=== PATIENT | male | born 1950 | race Caucasian/White ===

== ENCOUNTER → 2018-05-05 09:00 | Outpatient (CLI) | payer MEDICARE, OTHER, SELFPAY ==
[2018-05-05 11:38] LABS: AST(SGOT) 71 U/L (15-37); Alanine Aminotransfer ALT/SGPT 90 U/L (16-61); Albumin, Serum 3.8 g/dL (3.2-5.0); Alkaline Phosphatase 43 U/L (45-117); Anion Gap 11 (5-15); BUN 25 mg/dL (7-18); BUN/Creat Ratio 24.3 RATIO (10-20); Calcium,Total 8.8 mg/dL (8.5-10.1); Chloride 106 mmol/L (98-107); Creatinine, Serum 1.03 mg/dL (0.70-1.30); EST Glomerular Filtration Rate 77 mL/min (>60); Est Glom Filt Rate - Afr Amer 93 mL/min (>60); Globulin 3.7 g/dL (2.2-4.2); Glucose 98 mg/dL (74-106); Potassium 3.7 mmol/L (3.5-5.1); Protein, Total 7.5 g/dL (6.4-8.2); Sodium Level 141 mmol/L (136-145); Thyroid Stim Hormone (TSH) 5.32 uIU/mL (0.358-3.74)
== END ==
PROVIDERS: Family Provider Family Medicine; PCP Family Medicine; Visit Provider Family Medicine
DX: E03.9 Hypothyroidism, unspecified (principal); E78.6 Lipoprotein deficiency
CPT/HCPCS: 36415; 80053; 84439; 84443

== ENCOUNTER → 2018-05-11 08:35 | Outpatient (CLI) | payer MEDICARE, OTHER, SELFPAY ==
--- NOTE | 2018-05-11 08:37 | US_ITS ---
STUDY: ABDOMINAL ULTRASOUND - RIGHT UPPER QUADRANT REASON FOR VISIT: Male, 68 years old. Elevated liver function tests. TECHNIQUE: Ultrasound evaluation of the right upper quadrant was performed with real-time and static mejia-scale imaging. TECHNICAL QUALITY: Adequate. COMPARISON: Comparison is made with prior study dated November 13, 2017. FINDINGS: Liver: The liver measures 16.5 cm. There is increased echogenicity consistent with fatty infiltration. The bile ducts are within normal limits. There is hepatic color flow. The direction of portal flow is hepatopetal. There is no demonstrated mass lesion. Gallbladder: Normal distended gallbladder. The gallbladder wall measures 2.1 mm. There is a negative sonographic Zhou's sign. There is no pericholecystic fluid. There are no gallstones. Common Bile Duct (C.B.D.): The common bile duct measures 2.0 mm. Pancreas: There is nonvisualization of the pancreas due to overlying bowel gas. Right Kidney: Normal size of the right kidney. The right kidney measures 13.3 cm x 4.8 cm x 6.9 cm. Normal renal cortex. The right cortex measures 1.8 cm. There is a 1.7 cm x 1.5 cm x 1.6 cm cyst. There is no right hydronephrosis. US/Abdomen Limited IMPRESSION: Fatty infiltration of the liver. Electronically Signed: Blaine Huertas MD at 15:52 EDT Tel [phone], Service support ,
== END ==
PROVIDERS: Family Provider Family Medicine; PCP Family Medicine; Visit Provider Family Medicine
DX: R74.8 Abnormal levels of other serum enzymes (principal)
CPT/HCPCS: 76705

== ENCOUNTER → 2018-09-08 09:21 | Outpatient (CLI) | payer MEDICARE, OTHER, SELFPAY ==
[2018-09-08 12:06] LABS: Absolute Lymphocyte Count 2.65 X10^3/ul (0.83-4.51); Absolute Neutrophil Count 3.7 X10^3/uL (2.0-7.7); Basophil# 0.04 X10^3/uL; Basophil% 0.6 % (0-1); Eosinophil# 0.16 X10^3/uL; Eosinophils% 2.3 % (0-5); Lymphocyte # 2.65 X10^3/ul (4.0); Lymphocyte % 37.6 % (19-41); Mean Corp Hgb Conc 33.3 g/gl (32-36); Mean Corpuscular Hgb 32.1 pg (27.0-32.0); Mean Corpuscular Volume 96.2 fL (80-94); Mean Platelet Vol. 10.8 fl (6.2-12.0); Monocyte# 0.46 X10^3/uL; Monocyte% 6.5 % (0-10); Neutrophil # 3.73 X10^3/uL (2.7-7.7); Neutrophil % 52.9 % (47-70); POSITIVE COUNT NO; POSITIVE DIFFERENTIAL NO; POSITIVE MORPHOLOGY NO; Platelet Count 193 K/mm3 (150-450); RBC Distribution Width CV 12.9 % (11.6-14.6); RBC Distribution Width SD 45.3 fl (35.1-43.9); White Blood Count 7.1 K/mm3 (4.4-11.0)
[2018-09-08 12:24] LABS: AST(SGOT) 65 U/L (15-37); Alanine Aminotransfer ALT/SGPT 81 U/L (16-61); Albumin, Serum 3.5 g/dL (3.2-5.0); Alkaline Phosphatase 41 U/L (45-117); Anion Gap 9 (5-15); BUN 17 mg/dL (7-18); BUN/Creat Ratio 18.1 RATIO (10-20); Calcium,Total 8.4 mg/dL (8.5-10.1); Chloride 106 mmol/L (98-107); Cholesterol 145 mg/dL (200); Creatinine, Serum 0.94 mg/dL (0.70-1.30); EST Glomerular Filtration Rate 86 mL/min (>60); Est Glom Filt Rate - Afr Amer 104 mL/min (>60); Globulin 3.4 g/dL (2.2-4.2); Glucose 97 mg/dL (74-106); High Density Lipoprotein 26 mg/dL; Protein, Total 6.9 g/dL (6.4-8.2); Sodium Level 139 mmol/L (136-145); Triglycerides 250 mg/dL; Very Low Density Lipoprotein 50 mg/dL (5-40)
[2018-09-08 12:32] LABS: Microalbumin,Random Urine 7.1 mg/L (NO RANGE EST.); Microalbumin:Creatinine Ratio 5.4 mg/g CRE (<30 mg/g CRE)
== END ==
PROVIDERS: Family Provider Family Medicine; PCP Family Medicine; Visit Provider Family Medicine
DX: E88.81 Metabolic syndrome and other insulin resistance (principal)
CPT/HCPCS: 36415; 80053; 80061; 82043; 82570; 84443; 85025

== ENCOUNTER → 2018-09-10 10:54 | Outpatient (CLI) | payer MEDICARE, OTHER, SELFPAY ==
[2018-09-12 13:20] LABS: HEPATITIS B SURFACE AG Negative (Negative); Hep B Surface Antibodies Non Reactive (.); Hep C Antibodies <0.1 s/co ratio (0.0-0.9)
== END ==
PROVIDERS: Family Provider Family Medicine; PCP Family Medicine; Visit Provider Family Medicine
DX: R74.0 Nonspecific elevation of levels of transaminase and lactic acid dehydrogenase [LDH] (principal); K76.0 Fatty (change of) liver, not elsewhere classified
CPT/HCPCS: 36415; 83036; 86706; 86803; 87340

== ENCOUNTER → 2019-09-09 | Outpatient (CLI) | payer MEDICARE, OTHER, SELFPAY ==
[2019-09-09 13:10] LABS: Microalbumin,Random Urine 5.5 mg/L (NO RANGE EST.); Microalbumin:Creatinine Ratio 5.7 mg/g CRE (<30 mg/g CRE)
[2019-09-09 13:19] LABS: ALB/GLOB Ratio 1.1 RATIO (0.9-2.4); AST(SGOT) 66 U/L (15-37); Alanine Aminotransfer ALT/SGPT 74 U/L (16-61); Albumin, Serum 3.9 g/dL (3.2-5.0); Alkaline Phosphatase 46 U/L (45-117); Anion Gap 7 (5-15); BUN 15 mg/dL (7-18); BUN/Creat Ratio 15.1 RATIO (10-20); Calcium,Total 9.1 mg/dL (8.5-10.1); Chloride 105 mmol/L (98-107); Cholesterol 152 mg/dL (200); EST Glomerular Filtration Rate 80 mL/min (>60); Est Glom Filt Rate - Afr Amer 96 mL/min (>60); GGTP 196 U/L (15-85); Globulin 3.6 g/dL (2.2-4.2); Glucose 105 mg/dL (74-106); High Density Lipoprotein 30 mg/dL; Potassium 3.9 mmol/L (3.5-5.1); Protein, Total 7.5 g/dL (6.4-8.2); Sodium Level 138 mmol/L (136-145); Triglycerides 209 mg/dL; Very Low Density Lipoprotein 42 mg/dL (5-40)
[2019-09-09 13:29] LABS: Hemoglobin A1c 6.5 % (4.2-6.3)
== END | disposition home or self-care (01) ==
LOC: MFPLAB 09:56
PROVIDERS: Family Provider Family Medicine; PCP Family Medicine; Referring Provider Family Medicine; Visit Provider Family Medicine
DX: I10 Essential (primary) hypertension (principal)
CPT/HCPCS: 36415; 80053; 80061; 82043; 82570; 82977; 83036

== ENCOUNTER → 2019-09-09 | Outpatient (CLI) | payer MEDICARE, OTHER, SELFPAY ==
--- NOTE | 2019-09-09 16:40 | VDLE_ITS ---
Reason For Study: Right leg pain RIGHT GSV is normal. CFV is compressible, spontaneous, phasic, competent and demonstrates normal augmentation. FV is compressible, spontaneous, phasic, competent and demonstrates normal augmentation. POP V is compressible, spontaneous, phasic, competent and demonstrates normal augmentation. T/P Trunk is compressible. PTV is compressible. RT PerV is compressible. Procedure Exam performed in department. A preliminary report was called and/or faxed to Jaz[facility]. Interpretation Summary Deep veins of the right lower extremity are patent and compressible segmentally. There is no evidence of right lower extremity deep vein thrombosis. Valvular competence appears intact within the proximal deep venous system on the right . The right great saphenous vein appears patent and compressible segmentally. Ordering Physician: Jalen Hobson Referring Physician: James Munoz MD Performed By: Genia Wasserman RVT
== END | disposition home or self-care (01) ==
LOC: CVS 16:38
PROVIDERS: Family Provider Family Medicine; PCP Family Medicine; Referring Provider Family Medicine; Visit Provider Family Medicine
DX: M79.604 Pain in right leg (principal); I10 Essential (primary) hypertension; E78.5 Hyperlipidemia, unspecified; K76.0 Fatty (change of) liver, not elsewhere classified
CPT/HCPCS: 36415; 80053; 80061; 82043; 82570; 82977; 83036; 93971

== ENCOUNTER 2019-10-01 05:29 | Day surgery (SDC) | payer MEDICARE, OTHER, SELFPAY ==
[2019-10-01] VITALS (8 sets, daily range): BP systolic 111–156; BP diastolic 71–95; PULSE 44–53; RESP 16; TEMP 36.3–36.6; O2SAT 92–100; BMI 33.3
[2019-10-01] MEDS: Lactated Ringers 1,000 ML 100 ML IV ×2 (06:10→06:20)
--- NOTE | 2019-10-01 06:13 | PCM.HP.STD ---
Problem List (1) Personal history of colonic polyps Status: Acute History of Present Illness Date of Admission: 10/01/19 The patient is a 69 year old M who presents for surveillance colonoscopy. He has a personal history of colon polyps. I assisted him with a colonoscopy most frequently 5 years ago. He does not believe there was a polyp at that time but there was at the 10-year hetal. Currently he notes some looser stools frequent bowel movements. He denies bright red blood per rectum or melena. He has not had any weight loss. He otherwise enjoys good health. Past Medical History Past Medical History (Chronic Problems): Chronic Problems Hypertriglyceridemia (Chronic) History of abdominal pain (Chronic) Allergies aspirin Allergy (Verified 09/30/19 08:24) Anaphylaxis codeine Allergy (Verified 09/30/19 08:52) Nausea/Vom/Diarrhea morphine Allergy (Verified 09/30/19 08:24) Other NSAIDS (Non-Steroidal Anti-Inflamma Allergy (Verified 09/30/19 08:24) Anaphylaxis Home Medications: Ambulatory Orders Medication Instructions Recorded Bisoprolol Fumarate 10 mg PO QHS 10/18/16 Levothyroxine [Synthroid] 100 mcg PO DAILY 10/18/16 Multivitamin [Daily Multiple 1 each PO DAILY 10/18/16 Vitamin] Omega3/Dha/Epa/Fish Oil/Vit D3 1 each PO DAILY 10/18/16 [Fish Oil + Vitamin D-3 Softgel] Triamterene/Hydrochlorothiazid 1 tab PO DAILY 10/18/16 [Triamterene-Hctz 37.5-25 mg Tb] Losartan Potassium [Cozaar] 50 mg PO QHS 10/19/16 Ascorbic Acid [Vitamin C] 1,000 mg PO DAILY 09/30/19 Clopidogrel Bisulfate [Clopidogrel] 37.5 mg PO DAILY 09/30/19 Glucos Sul 2Kcl/MSM/Chond/C/Mn 1 ea PO DAILY 09/30/19 [Glucosamine Chondroitin Cap] Pioglitazone HCl 30 mg PO DAILY 09/30/19 Pravastatin [Pravachol] 40 mg PO QHS 09/30/19 Vitamin E 1,000 unit PO DAILY 09/30/19 metFORMIN HCl [Glucophage] 500 mg PO BIDCM 09/30/19 Surgical History: - - tonsils, hemorrhoids, biceps tears in both arms, broken wrist in high,prior compression fractures in upper spine. Smoking Status: Never smoker Tobacco Use: Non-smoker - *Family History Maternal History Items: - Paternal History Items: - Review of Systems Constitutional: Denies: Anorexia HEENT: Denies: Difficulty Swallowing Cardiovascular: Denies: Chest Pain Respiratory: Denies: Cough Gastrointestinal: Reports: - - Multiple daily stools. Denies: Abdominal Pain Psychiatric: Denies: Anxiety VTE Information - Inpt Only VTE Present on Admission: No Patient Problems: Active and Suspected Problems Personal history of colonic polyps (Acute) - Physical Exam Vitals/I&O's: Vital Signs Temp Pulse Resp BP Pulse Ox 97.3 F L 53 L 16 134/79 H 100 10/01/19 05:52 10/01/19 05:52 10/01/19 05:52 10/01/19 05:52 10/01/19 05:52 Oxygen Delivery Method Room Air Weight: 225 lb 12.054 oz Body Mass Index (BMI) 33.3 General: Alert, Oriented x3, Cooperative, No apparent distress HEENT: Atraumatic Oral: Moist Mucosa Neck: Supple Lungs: Clear to auscultation, Normal air movement Cardiovascular: Regular rate, Regular Rhythm Abdomen: Bowel Sounds Present, Soft, Non Tender Extremities: No Calf Tenderness Psych/Mental Status: Normal Affect Current Medications Lactated Ringer's () 1,000 mls @ 100 mls/hr IV .Q10H [facility] Last Admin: 10/01/19 06:10 Dose: 100 mls/hr Documented by: Assessment/Plan All Active Problems Personal history of colonic polyps (Acute) Lumbar compression fracture (Acute) I recommended the patient a colonoscopy with possible biopsy or polypectomy is indicated. He is aware of the technique, benefits, risks, alternatives. Because of the more frequent bowel habits we may consider random colonic biopsies. He presents via our open access program today. Gary Pryor M.D., F.A.C.S.
--- NOTE | 2019-10-01 06:30 | COLBX_PTH ---
PATIENT: ANGELIC ROUSE LOC: EN U#:[id number] AGE/SX: 69/M ROOM: RE10/01/[address]: Dr. Gary Pryor MD : 1950 BED: DIS: 10/01/2019 SPEC #: [id number] RECD: 10/01/19 10:47 STATUS: SCAR REKenan #: [id number] KRISTEN: 10/01/19 06:[address]: Gary Pryor DEPT: SURGICAL PATHOLOGY RECD BY: Michael Simon ENTERED: 10/01/19 11:33 SP TYPE: COLON BX OT DR: Dr. James Munoz MD Tissues: A - COLON BIOPSY B - Ascending colon C - Descending colon D - Sigmoid colon biopsy Procedures: Surgery Specimen Level IV HEADER OPERATION: Colonoscopy, open access (MOD) PRE-OP DIAGNOSIS: History colon polyps TISSUE SUBMITTED: A - Random colonic biopsy, B - Ascending polyp biopsy, C - Descending polyp biopsy, D - Proximal sigmoid polyp biopsy MICROSCOPIC DIAGNOSIS A. Colon, random biopsy: Fragments of colonic mucosa, no pathologic diagnosis. B. Ascending colon polyp, biopsy: Fragments of tubular adenoma. C. Descending colon polyp, biopsy: Fragments of tubular adenoma. D. Proximal sigmoid colon polyp, biopsy: Fragments of colonic mucosa, no pathologic diagnosis. SJ:mary lou 10/04/19 COMMENT Case has been reviewed in consultation with Dr. Womack who concurs with the above diagnosis. IDC:AM MICROSCOPIC DESCRIPTION Slides are reviewed. GROSS DESCRIPTION A - Received in fixative is one container labeled with the patient's name and designated random colon biopsy. The specimen consists of multiple irregular fragments of light landrum soft tissue that in aggregate measure 1.5 x 0.4 x 0.1 cm. The specimen is totally submitted in one cassette. B - Received in fixative is one container labeled with the patient's name and designated ascending polyp. The specimen consists of two irregular fragments of light landrum soft tissue that in aggregate measure 0.8 x 0.3 x 0.1 cm. The specimen is totally submitted in one cassette. C - Received in fixative is one container labeled with the patient's name and designated descending polyp biopsy. The specimen consists of two irregular fragments of light landrum soft tissue that in aggregate measure 0.8 x 0.4 x 0.1 cm. The specimen is totally submitted in one cassette. D - Received in fixative is one container labeled with the patient's name and designated proximal sigmoid polyp biopsy. The specimen consists of two irregular fragments of light landrum soft tissue that in aggregate measure 0.5 x 0.3 x 0.1 cm. The specimen is totally submitted in one cassette. / SJ:rg 10/01/19 TC:5 CPT: 39658 x4
--- NOTE | 2019-10-01 06:52 | OP.COLON_ITS ---
Patient Name: Virgen Julien Procedure Date: 10/01/2019 6:07 AM Date of : 1950 Age: 69 Procedure: Colonoscopy Indications: High risk colon cancer surveillance: Personal history of colonic polyps Providers: Gary Pryor MD Referring MD: James Munoz Medicines: Midazolam 3.5 mg IV, Meperidine 100 mg IV Patient Profile: Last Colonoscopy: 5 years ago. Complications: No immediate complications. Procedure: Pre-Anesthesia Assessment: - Prior to the procedure, a History and Physical was performed, and patient medications and allergies were reviewed. The patient's tolerance of previous anesthesia was also reviewed. The risks and benefits of the procedure and the sedation options and risks were discussed with the patient. All questions were answered, and informed consent was obtained. Prior Anticoagulants: The patient has taken no previous anticoagulant or antiplatelet agents. ASA Grade Assessment: II - A patient with mild systemic disease. After reviewing the risks and benefits, the patient was deemed in satisfactory condition to undergo the procedure. After I obtained informed consent, the scope was passed under direct vision. Throughout the procedure, the patient's blood pressure, pulse, and oxygen saturations were monitored continuously. The colonoscope was introduced through the anus and advanced to the cecum, identified by appendiceal orifice and ileocecal valve. The colonoscopy was performed without difficulty. The patient tolerated the procedure well. The quality of the bowel preparation was good. The ileocecal valve was photographed. Moderate Sedation: Moderate (conscious) sedation was personally administered by the endoscopist. The following parameters were monitored: oxygen saturation, heart rate, blood pressure, and response to care. Total physician intraservice time was 17 minutes. Scope In: 6:30:23 AM Scope Withdrawal Time 0 hours 13 minutes 5 seconds Scope Out: 6:46:30 AM Total Procedure Duration Time 0 hours 16 minutes 7 seconds Findings: The perianal and digital rectal examinations were normal. Multiple diverticula were found in the sigmoid colon and descending colon. Three sessile polyps were found in the proximal sigmoid colon, descending colon and distal ascending colon. The polyps were 5 to 6 mm in size. These polyps were removed with a cold biopsy forceps. Resection and retrieval were complete. Biopsies for histology were taken with a cold forceps from the entire colon for evaluation of microscopic colitis. Impression: - Diverticulosis in the sigmoid colon and in the descending colon. - Three 4-5 mm polyps in the proximal sigmoid colon, in the descending colon and in the distal ascending colon, removed with a cold biopsy forceps. Resected and retrieved. - Biopsies were taken with a cold forceps from the entire colon for evaluation of microscopic colitis. Recommendation: - Discharge patient to home. - Resume previous diet. - Continue present medications. - Repeat colonoscopy in 5 years for surveillance based on pathology results. - Telephone my office for pathology results in 1 week. Procedure Code(s): --- Professional --- 44819, Colonoscopy, flexible; with biopsy, single or multiple 14907, 59, Moderate sedation services provided by the same physician or other qualified health patient care provider performing the diagnostic or therapeutic service that the sedation supports, requiring the presence of an independent trained observer to assist in the monitoring of the patient's level of consciousness and physiological status; initial 15 minutes of intraservice time, patient age 5 years or older Diagnosis Code(s): --- Professional --- Z86.010, Personal history of colonic polyps D12.5, Benign neoplasm of sigmoid colon D12.4, Benign neoplasm of descending colon D12.2, Benign neoplasm of ascending colon K57.30, Diverticulosis of large intestine without perforation or abscess without bleeding CPT copyright 2017 [employer]. All rights reserved. The codes documented in this report are preliminary and upon dog daycare provider review may be revised to meet current compliance requirements. Gary Pryor MD 10/01/2019 6:52:06 AM This report has been signed electronically. Number of Addenda: 0 Note Initiated On: 10/01/2019 6:07 AM
== END 2019-10-01 08:01 | disposition home or self-care (01) ==
LOC: EN 05:30 → AC 05:32
PROVIDERS: Family Provider Family Medicine; PCP Family Medicine; Referring Provider Family Medicine; Visit Provider Surgery
PROC: 0DJD8ZZ Inspection of Lower Intestinal Tract, Via Natural or Artificial Opening Endoscopic (ICD-10-PCS; CPT 45378; principal; 2019-10-01 06:25)
DX: Z12.11 Encounter for screening for malignant neoplasm of colon (principal); D12.2 Benign neoplasm of ascending colon; D12.4 Benign neoplasm of descending colon; K57.30 Diverticulosis of large intestine without perforation or abscess without bleeding; Z86.010 Personal history of colon polyps; E78.1 Pure hyperglyceridemia; Z79.899 Other long term (current) drug therapy
CPT/HCPCS: 45380; 88305; 99152; 99153; J7120

== ENCOUNTER → 2019-12-14 | Outpatient (CLI) | payer MEDICARE, OTHER, SELFPAY ==
[2019-10-01 05:52] VITALS: BMI 33.3
[2019-12-14 12:28] LABS: International Normalized Ratio 1.1; Prothrombin Time (Protime)PT. 13.7 SECONDS (11.7-14.9)
[2019-12-14 12:37] LABS: Hemoglobin A1c 6.4 % (4.2-6.3)
[2019-12-14 12:53] LABS: AST(SGOT) 43 U/L (15-37); Alanine Aminotransfer ALT/SGPT 53 U/L (16-61); Albumin, Serum 3.7 g/dL (3.2-5.0); Alkaline Phosphatase 43 U/L (45-117); Anion Gap 7 (5-15); BUN 17 mg/dL (7-18); Calcium,Total 9.3 mg/dL (8.5-10.1); Chloride 106 mmol/L (98-107); Cholesterol 165 mg/dL (200); Creatinine, Serum 0.94 mg/dL (0.70-1.30); EST Glomerular Filtration Rate 85 mL/min (>60); Est Glom Filt Rate - Afr Amer 103 mL/min (>60); GGTP 163 U/L (15-85); Globulin 3.6 g/dL (2.2-4.2); Glucose 92 mg/dL (74-106); High Density Lipoprotein 31 mg/dL; Potassium 3.9 mmol/L (3.5-5.1); Protein, Total 7.3 g/dL (6.4-8.2); Sodium Level 139 mmol/L (136-145)
== END | disposition home or self-care (01) ==
LOC: MFPLAB 11:12
PROVIDERS: PCP Family Medicine; Referring Provider Family Medicine; Visit Provider Family Medicine
DX: K75.81 Nonalcoholic steatohepatitis (NASH) (principal); E11.9 Type 2 diabetes mellitus without complications
CPT/HCPCS: 36415; 80053; 82140; 82465; 82977; 83036; 83718; 85610

== ENCOUNTER → 2020-06-12 | Outpatient (CLI) | payer MEDICARE, OTHER, SELFPAY ==
[2019-10-01 05:52] VITALS: BMI 33.3
[2020-06-12 12:38] LABS: Absolute Lymphocyte Count 3.07 X10^3/uL (0.83-4.51); Absolute Neutrophil Count 3.2 X10^3/uL (2.0-7.7); Basophil% 1.2 % (0-1); Eosinophil# 1.08 X10^3/uL; Eosinophils% 13.3 % (0-5); Hematocrit 51.8 % (40-54); Hemoglobin 16.9 g/dL (13.0-16.5); Lymphocyte # 3.07 X10^3/ul (4.0); Lymphocyte % 37.9 % (19-41); Mean Corp Hgb Conc 32.6 g/dL (32-36); Mean Corpuscular Hgb 32.1 pg (27.0-32.0); Mean Corpuscular Volume 98.5 fL (80-94); Mean Platelet Vol. 10.5 fl (6.2-12.0); Monocyte# 0.69 X10^3/uL; Monocyte% 8.5 % (0-10); NRBC Flagged by Analyzer 0 % (0-5); Neutrophil # 3.15 X10^3/uL (2.7-7.7); Neutrophil % 38.9 % (47-70); Platelet Count 212 K/mm3 (150-450); RBC Distribution Width CV 13.1 % (11.6-14.6); RBC Distribution Width SD 46.6 fl (35.1-43.9); Red Blood Count 5.26 M/mm3 (4.6-6.2); White Blood Count 8.1 K/mm3 (4.4-11.0)
[2020-06-12 12:55] LABS: Microalbumin,Random Urine 10.6 mg/L (NO RANGE EST.); Microalbumin:Creatinine Ratio 5.5 mg/g CRE (<30 mg/g CRE)
[2020-06-12 12:57] LABS: BUN 21 mg/dL (7-18); Creatinine, Serum 1.05 mg/dL (0.70-1.30); Glucose 106 mg/dL (74-106)
[2020-06-12 12:58] LABS: AST(SGOT) 37 U/L (15-37); Alanine Aminotransfer ALT/SGPT 43 U/L (16-61); Albumin, Serum 3.8 g/dL (3.2-5.0); Alkaline Phosphatase 43 U/L (45-117); Anion Gap 6 (5-15); Calcium,Total 8.9 mg/dL (8.5-10.1); Chloride 105 mmol/L (98-107); Cholesterol 157 mg/dL (200); EST Glomerular Filtration Rate 75 mL/min (>60); Est Glom Filt Rate - Afr Amer 90 mL/min (>60); Ferritin 379 ng/mL (26-388); GGTP 126 U/L (15-85); Globulin 3.7 g/dL (2.2-4.2); High Density Lipoprotein 29 mg/dL; Potassium 4.1 mmol/L (3.5-5.1); Protein, Total 7.5 g/dL (6.4-8.2); Sodium Level 137 mmol/L (136-145); Thyroid Stim Hormone (TSH) 5.53 uIU/mL (0.358-3.74); Triglycerides 229 mg/dL; Very Low Density Lipoprotein 46 mg/dL (5-40)
== END | disposition home or self-care (01) ==
LOC: MFPLAB 10:18
PROVIDERS: PCP Family Medicine; Referring Provider Family Medicine; Visit Provider Family Medicine
DX: K76.0 Fatty (change of) liver, not elsewhere classified (principal); E11.9 Type 2 diabetes mellitus without complications; K75.81 Nonalcoholic steatohepatitis (NASH)
CPT/HCPCS: 36415; 80053; 80061; 82043; 82140; 82570; 82728; 82977; 83036; 84443; 85025

== ENCOUNTER → 2020-09-11 | Outpatient (CLI) | payer MEDICARE, OTHER, SELFPAY ==
[2019-10-01 05:52] VITALS: BMI 33.3
[2020-09-11 10:33] LABS: Hematocrit 50.9 % (40-54); Hemoglobin 16.3 g/dL (13.0-16.5); Mean Corpuscular Hgb 31.5 pg (27.0-32.0); Mean Corpuscular Volume 98.3 fL (80-94); Mean Platelet Vol. 10.5 fl (6.2-12.0); Platelet Count 199 K/mm3 (150-450); RBC Distribution Width CV 13.2 % (11.6-14.6); RBC Distribution Width SD 48.2 fl (35.1-43.9); Red Blood Count 5.18 M/mm3 (4.6-6.2); White Blood Count 6.6 K/mm3 (4.4-11.0)
[2020-09-11 11:10] LABS: Ferritin 341 ng/mL (26-388); GGTP 103 U/L (15-85); Iron 146 ug/dL (65-175); T4 Total, Thyroxin 10.8 ug/dL (4.5-12.1); Thyroid Stim Hormone (TSH) 4.08 uIU/mL (0.358-3.74)
[2020-09-12 11:08] LABS: ALB/GLOB Ratio 1.2 RATIO (0.9-2.4); AST(SGOT) 37 U/L (15-37); Alanine Aminotransfer ALT/SGPT 43 U/L (16-61); Albumin, Serum 3.7 g/dL (3.2-5.0); Alkaline Phosphatase 40 U/L (45-117); Anion Gap 7 (5-15); BUN 24 mg/dL (7-18); Calcium,Total 8.6 mg/dL (8.5-10.1); Chloride 108 mmol/L (98-107); Creatinine, Serum 0.98 mg/dL (0.70-1.30); Globulin 3.1 g/dL (2.2-4.2); Glucose 93 mg/dL (74-106); Potassium 4.1 mmol/L (3.5-5.1); Protein, Total 6.8 g/dL (6.4-8.2); Sodium Level 142 mmol/L (136-145)
[2020-09-12 11:20] LABS: BUN/Creat Ratio 24.6 RATIO (10-20); EST Glomerular Filtration Rate 81 mL/min (>60); Est Glom Filt Rate - Afr Amer 98 mL/min (>60)
== END | disposition home or self-care (01) ==
LOC: MFPLAB 08:32
PROVIDERS: PCP Family Medicine; Visit Provider Family Medicine
DX: K75.81 Nonalcoholic steatohepatitis (NASH) (principal); E03.9 Hypothyroidism, unspecified; I10 Essential (primary) hypertension
CPT/HCPCS: 36415; 80053; 82140; 82728; 82977; 83540; 84436; 84443; 85027

== ENCOUNTER → 2021-01-10 11:10 | Outpatient (CLI) | payer MEDICARE, OTHER, SELFPAY ==
[2019-10-01 05:52] VITALS: BMI 33.3
[2021-01-10 12:13] LABS: Absolute Lymphocyte Count 2.52 X10^3/uL (0.83-4.51); Absolute Neutrophil Count 3.2 X10^3/uL (2.0-7.7); Basophil# 0.05 X10^3/uL; Basophil% 0.8 % (0-1); Eosinophil# 0.18 X10^3/uL; Eosinophils% 2.8 % (0-5); Hematocrit 50.2 % (40-54); Hemoglobin 16.8 g/dL (13.0-16.5); Lymphocyte # 2.52 X10^3/ul (4.0); Lymphocyte % 38.7 % (19-41); Mean Corp Hgb Conc 33.5 g/dL (32-36); Mean Corpuscular Hgb 31.8 pg (27.0-32.0); Mean Corpuscular Volume 94.9 fL (80-94); Mean Platelet Vol. 10.2 fl (6.2-12.0); Monocyte# 0.55 X10^3/uL; Monocyte% 8.4 % (0-10); NRBC Flagged by Analyzer 0 % (0-5); Neutrophil # 3.19 X10^3/uL (2.7-7.7); Platelet Count 208 K/mm3 (150-450); RBC Distribution Width CV 12.6 % (11.6-14.6); RBC Distribution Width SD 44.5 fl (35.1-43.9); Red Blood Count 5.29 M/mm3 (4.6-6.2); White Blood Count 6.5 K/mm3 (4.4-11.0)
[2021-01-10 12:51] LABS: Hemoglobin A1c 5.8 % (3.8-5.6)
[2021-01-10 12:52] LABS: Microalbumin,Random Urine 5.8 mg/L (NO RANGE EST.); Microalbumin:Creatinine Ratio 9.6 mg/g CRE (<30 mg/g CRE)
[2021-01-10 13:21] LABS: ALB/GLOB Ratio 1.1 RATIO (0.9-2.4); AST(SGOT) 34 U/L (15-37); Alanine Aminotransfer ALT/SGPT 43 U/L (16-61); Albumin, Serum 3.7 g/dL (3.2-5.0); Alkaline Phosphatase 42 U/L (45-117); Anion Gap 8 (5-15); BUN 23 mg/dL (7-18); BUN/Creat Ratio 24.3 RATIO (10-20); Calcium,Total 8.8 mg/dL (8.5-10.1); Chloride 106 mmol/L (98-107); Creatinine, Serum 0.95 mg/dL (0.70-1.30); EST Glomerular Filtration Rate 84 mL/min (>60); Est Glom Filt Rate - Afr Amer 102 mL/min (>60); Globulin 3.5 g/dL (2.2-4.2); Glucose 89 mg/dL (74-106); Potassium 3.9 mmol/L (3.5-5.1); Protein, Total 7.2 g/dL (6.4-8.2); Sodium Level 138 mmol/L (136-145); Thyroid Stim Hormone (TSH) 3.45 uIU/mL (0.358-3.74)
== END ==
PROVIDERS: PCP Family Medicine; Referring Provider Family Medicine; Visit Provider Family Medicine
DX: K75.81 Nonalcoholic steatohepatitis (NASH) (principal); E03.9 Hypothyroidism, unspecified; E11.9 Type 2 diabetes mellitus without complications
CPT/HCPCS: 36415; 80053; 82043; 82570; 83036; 84443; 85025

== ENCOUNTER → 2021-07-11 10:34 | Outpatient (CLI) | payer MEDICARE, OTHER, SELFPAY ==
[2021-07-11 12:11] LABS: Absolute Lymphocyte Count 2.71 X10^3/uL (0.83-4.51); Absolute Neutrophil Count 5.3 X10^3/uL (2.0-7.7); Basophil# 0.05 X10^3/uL; Basophil% 0.6 % (0-1); Eosinophil# 0.17 X10^3/uL; Eosinophils% 1.9 % (0-5); Hematocrit 51.5 % (40-54); Hemoglobin 17.2 g/dL (13.0-16.5); Lymphocyte # 2.71 X10^3/ul (0.83-4.51); Lymphocyte % 30.3 % (19-41); Mean Corp Hgb Conc 33.4 g/dL (32-36); Mean Corpuscular Hgb 31.6 pg (27.0-32.0); Mean Corpuscular Volume 94.7 fL (80-94); Mean Platelet Vol. 9.8 fl (6.2-12.0); Monocyte# 0.72 X10^3/uL; Monocyte% 8.1 % (0-10); NRBC Flagged by Analyzer 0 % (0-5); Neutrophil # 5.25 X10^3/uL (2.7-7.7); Neutrophil % 58.8 % (47-70); Platelet Count 253 K/mm3 (150-450); RBC Distribution Width CV 12.5 % (11.6-14.6); RBC Distribution Width SD 43.4 fl (35.1-43.9); Red Blood Count 5.44 M/mm3 (4.6-6.2); White Blood Count 8.9 K/mm3 (4.4-11.0)
[2021-07-11 12:32] LABS: ALB/GLOB Ratio 0.9 RATIO (0.9-2.4); AST(SGOT) 55 U/L (15-37); Alanine Aminotransfer ALT/SGPT 62 U/L (16-61); Albumin, Serum 3.8 g/dL (3.2-5.0); Alkaline Phosphatase 53 U/L (45-117); Anion Gap 6 (5-15); BUN 16 mg/dL (7-18); BUN/Creat Ratio 16.8 RATIO (10-20); Calcium,Total 9.2 mg/dL (8.5-10.1); Chloride 105 mmol/L (98-107); Creatinine, Serum 0.95 mg/dL (0.70-1.30); EST Glomerular Filtration Rate 83 mL/min (>60); Est Glom Filt Rate - Afr Amer 101 mL/min (>60); Globulin 4.1 g/dL (2.2-4.2); Glucose 131 mg/dL (74-106); Protein, Total 7.9 g/dL (6.4-8.2); Sodium Level 137 mmol/L (136-145)
[2021-07-11 13:20] LABS: D-Dimer Quantitative (DVT/PE) 1.22 FEU/ug/m (0.27-0.49); International Normalized Ratio 1.1; Prothrombin Time (Protime)PT. 13.1 SECONDS (11.7-14.9)
== END ==
PROVIDERS: PCP Family Medicine; Referring Provider Family Medicine; Visit Provider Family Medicine
DX: K75.81 Nonalcoholic steatohepatitis (NASH) (principal); S80.11XA Contusion of right lower leg, initial encounter
CPT/HCPCS: 36415; 80053; 85025; 85379; 85610

== ENCOUNTER → 2021-07-11 14:58 | Outpatient (CLI) | payer MEDICARE, OTHER, SELFPAY ==
--- NOTE | 2021-07-11 15:04 | VDLE_ITS ---
Reason For Study: ELEVATED D DIMER RIGHT LEFT GSV is normal. CFV is compressible, spontaneous, phasic, CFV is compressible, spontaneous, phasic, competent, and demonstrates normal competent and demonstrates normal augmentation. augmentation. FV is compressible, spontaneous, phasic, competent and demonstrates normal augmentation. POP V is compressible, spontaneous, phasic, competent and demonstrates normal augmentation. T/P Trunk is compressible. PTV is compressible. RT PerV is compressible. Procedure Exam performed in department. A preliminary report was called and/or faxed to DR MUNOZ. VL/Venous Duplex US, Unilateral Interpretation Summary There is no evidence of right lower extremity deep vein thrombosis. Right great saphenous vein appears patent and compressible segmentally. Normal flow patterns left common f emoral vein Ordering Physician: James Munoz Referring Physician: James Munoz Performed By: Natalia Whalen, MARISOL, RVT
== END ==
PROVIDERS: PCP Family Medicine; Referring Provider Family Medicine; Visit Provider Family Medicine
DX: R60.0 Localized edema (principal); R79.89 Other specified abnormal findings of blood chemistry; K75.81 Nonalcoholic steatohepatitis (NASH); S80.11XA Contusion of right lower leg, initial encounter
CPT/HCPCS: 36415; 80053; 85025; 85379; 85610; 93971

== ENCOUNTER → 2022-04-12 | Outpatient (CLI) | payer MEDICARE, OTHER, SELFPAY ==
[2022-04-12 10:20] LABS: Absolute Lymphocyte Count 3.13 X10^3/uL (0.83-4.51); Absolute Neutrophil Count 3.1 X10^3/uL (2.0-7.7); Basophil# 0.05 X10^3/uL; Basophil% 0.7 % (0-1); Eosinophils% 2.8 % (0-5); Hematocrit 47.8 % (40-54); Hemoglobin 16.3 g/dL (13.0-16.5); Lymphocyte # 3.13 X10^3/ul (0.83-4.51); Lymphocyte % 43.7 % (19-41); Mean Corp Hgb Conc 34.1 g/dL (32-36); Mean Corpuscular Hgb 32.4 pg (27.0-32.0); Mean Platelet Vol. 10.2 fl (6.2-12.0); Monocyte# 0.63 X10^3/uL; Monocyte% 8.8 % (0-10); NRBC Flagged by Analyzer 0 % (0-5); Neutrophil # 3.13 X10^3/uL (2.7-7.7); Neutrophil % 43.6 % (47-70); Platelet Count 197 K/mm3 (150-450); RBC Distribution Width SD 45.7 fl (35.1-43.9); Red Blood Count 5.03 M/mm3 (4.6-6.2); White Blood Count 7.2 K/mm3 (4.4-11.0)
[2022-04-12 10:31] LABS: AST(SGOT) 57 U/L (15-37); Alanine Aminotransfer ALT/SGPT 54 U/L (16-61); Albumin, Serum 3.5 g/dL (3.2-5.0); Alkaline Phosphatase 42 U/L (45-117); Anion Gap 6 (5-15); BUN 21 mg/dL (7-18); BUN/Creat Ratio 19.8 RATIO (10-20); Calcium,Total 8.7 mg/dL (8.5-10.1); Chloride 106 mmol/L (98-107); Cholesterol 140 mg/dL (200); Creatinine, Serum 1.06 mg/dL (0.70-1.30); EST Glomerular Filtration Rate 73 mL/min (>60); Est Glom Filt Rate - Afr Amer 89 mL/min (>60); Globulin 3.4 g/dL (2.2-4.2); Glucose 117 mg/dL (74-106); High Density Lipoprotein 29 mg/dL; Protein, Total 6.9 g/dL (6.4-8.2); Sodium Level 137 mmol/L (136-145); Triglycerides 202 mg/dL; Very Low Density Lipoprotein 40 mg/dL (5-40)
[2022-04-12 10:35] LABS: Hemoglobin A1c 6.1 % (3.8-5.6)
[2022-04-12 10:46] LABS: Microalbumin,Random Urine 8.5 mg/L (NO RANGE EST.); Microalbumin:Creatinine Ratio 5.5 mg/g CRE (<30 mg/g CRE)
== END | disposition home or self-care (01) ==
LOC: MFPLAB 08:38
PROVIDERS: PCP Family Medicine; Referring Provider Family Medicine; Visit Provider Family Medicine
DX: K75.81 Nonalcoholic steatohepatitis (NASH) (principal); E11.8 Type 2 diabetes mellitus with unspecified complications
CPT/HCPCS: 36415; 80053; 80061; 82043; 82570; 83036; 85025

== ENCOUNTER → 2022-10-11 | Outpatient (CLI) | payer MEDICARE, OTHER, SELFPAY ==
[2022-10-11 11:42] LABS: Hematocrit 50.6 % (40-54); Mean Corp Hgb Conc 33.6 g/dL (32-36); Mean Corpuscular Hgb 32.4 pg (27.0-32.0); Mean Corpuscular Volume 96.6 fL (80-94); Mean Platelet Vol. 10.1 fl (6.2-12.0); Platelet Count 191 K/mm3 (150-450); RBC Distribution Width SD 46.5 fl (35.1-43.9); Red Blood Count 5.24 M/mm3 (4.6-6.2); White Blood Count 8.2 K/mm3 (4.4-11.0)
[2022-10-11 12:00] LABS: ALB/GLOB Ratio 1.2 RATIO (0.9-2.4); AST(SGOT) 63 U/L (15-37); Alanine Aminotransfer ALT/SGPT 68 U/L (16-61); Albumin, Serum 3.8 g/dL (3.2-5.0); Alkaline Phosphatase 53 U/L (45-117); Anion Gap 7 (5-15); BUN 21 mg/dL (7-18); Calcium,Total 9.3 mg/dL (8.5-10.1); Chloride 104 mmol/L (98-107); Creatinine, Serum 0.92 mg/dL (0.70-1.30); EST Glomerular Filtration Rate 87 mL/min (>60); Est Glom Filt Rate - Afr Amer 105 mL/min (>60); Globulin 3.3 g/dL (2.2-4.2); Glucose 117 mg/dL (74-106); Protein, Total 7.1 g/dL (6.4-8.2); Sodium Level 137 mmol/L (136-145)
[2022-10-11 12:07] LABS: Microalbumin:Creatinine Ratio 4.3 mg/g CRE (<30 mg/g CRE)
[2022-10-11 12:08] LABS: Hemoglobin A1c 6.2 % (3.8-5.6)
== END | disposition home or self-care (01) ==
LOC: MTLAB 09:12
PROVIDERS: PCP Family Medicine; Referring Provider Family Medicine; Visit Provider Family Medicine
DX: E11.59 Type 2 diabetes mellitus with other circulatory complications (principal); M54.2 Cervicalgia
CPT/HCPCS: 36415; 80053; 82043; 82570; 83036; 85027

== ENCOUNTER → 2023-01-28 | Outpatient (CLI) | payer MEDICARE, OTHER, SELFPAY ==
--- NOTE | 2023-01-28 09:30 | US_ITS ---
STUDY: ULTRASOUND BREAST - RIGHT REASON FOR EXAM: Male, 72 years old. Pain, lump TECHNIQUE: Axial and longitudinal images of the RIGHT breast were performed with a high resolution ultrasound transducer. # OF IMAGES: 46 COMPARISON: None. FINDINGS: RIGHT Breast: Focused retroareolar ultrasound of the right breast shows subtle hypoechogenicity in the retroareolar region consistent with gynecomastia. There is no suspicious shadowing solid lesion architectural distortion or suspicious calcifications. IMPRESSION: Likely gynecomastia in the retroareolar region of the right breast, no suspicious sonographic findings ASSESSMENT CATEGORY: BIRADS Category 2: Benign. A letter regarding these results will be sent to the patient by the facility within 30 days. Electronically Signed: Nader Thompson MD at 10:57 EDT , STUDY: ULTRASOUND BREAST - LEFT REASON FOR EXAM: Male, 72 years old. Lump TECHNIQUE: Axial and longitudinal images of the LEFT breast were performed with a high resolution ultrasound transducer. # OF IMAGES: 46 COMPARISON: None. FINDINGS: LEFT Breast: Sonographic evaluation of the retroareolar region of the left breast shows only normal dense fibroglandular tissue. There is no suspicious shadowing solid lesion, architectural distortion, or clustered shadowing calcifications. US/Breast Limited Unilateral IMPRESSION: No suspicious sonographic findings ASSESSMENT CATEGORY: BIRADS Category 1: Negative. A letter regarding these results will be sent to the patient by the facility within 30 days. Electronically Signed: Nader Thompson MD at 10:57 EDT ,
--- NOTE | 2023-01-28 09:30 | BI_ITS ---
MAMMOGRAPHY - BILATERAL DIAGNOSTIC REASON FOR EXAM: Male, 72 years old. LUMP RT PERTINENT HISTORY: No family history, right breast lump and tenderness x1 1/2 weeks TECHNIQUE: Digital examination. Mediolateral oblique (MLO) and craniocaudad (CC) views of both breasts were obtained, along with 3-D tomosynthesis. CAD: CAD was performed on this study. COMPARISON: None. FINDINGS: Breast Composition: There are scattered areas of fibroglandular density. There is subtle retroareolar asymmetries in both breasts, further evaluation of the retroareolar regions recommended. No other significant abnormalities are identified. Specifically, no discrete lesion or architectural distortion. BI/DIAG MAMM W/CAD, BILAT IMPRESSION: Further ultrasonographic evaluation recommended, as described above. Recall Side: Both Breasts ASSESSMENT CATEGORY: BIRADS Category 0: Incomplete. Need additional imaging evaluation. A letter regarding these results will be sent to the patient by the facility within 30 days. FOLLOW UP RECOMMENDATION: Ultrasound Recommended. (I) Approximately 10% of breast cancers are not detected by mammography. A normal mammogram should not delay biopsy of a clinically suspicious abnormality. Electronically Signed: Nader Thompson MD at 10:35 EDT ,
== END | disposition home or self-care (01) ==
LOC: OPBI 09:27
PROVIDERS: PCP Family Medicine; Referring Provider Family Medicine; Visit Provider Family Medicine
DX: N63.41 Unspecified lump in right breast, subareolar (principal)
CPT/HCPCS: 76642; 77062; 77066; G0279

== ENCOUNTER → 2023-04-09 | Outpatient (CLI) | payer MEDICARE, OTHER, SELFPAY ==
[2023-04-09 12:30] LABS: Absolute Lymphocyte Count 2.51 X10^3/uL (0.83-4.51); Absolute Neutrophil Count 4.4 X10^3/uL (2.0-7.7); Basophil# 0.06 X10^3/uL; Basophil% 0.8 % (0-1); Eosinophil# 0.26 X10^3/uL; Eosinophils% 3.3 % (0-5); Hematocrit 48.7 % (40-54); Hemoglobin 16.3 g/dL (13.0-16.5); Lymphocyte # 2.51 X10^3/ul (0.83-4.51); Lymphocyte % 31.6 % (19-41); Mean Corp Hgb Conc 33.5 g/dL (32-36); Mean Corpuscular Hgb 32.6 pg (27.0-32.0); Mean Corpuscular Volume 97.4 fL (80-94); Mean Platelet Vol. 10.3 fl (6.2-12.0); Monocyte# 0.74 X10^3/uL; Monocyte% 9.3 % (0-10); NRBC Flagged by Analyzer 0 % (0-5); Neutrophil # 4.35 X10^3/uL (2.7-7.7); Neutrophil % 54.6 % (47-70); Platelet Count 200 K/mm3 (150-450); RBC Distribution Width CV 13.1 % (11.6-14.6); RBC Distribution Width SD 46.7 fl (35.1-43.9)
[2023-04-09 13:32] LABS: Microalbumin,Random Urine 8.7 mg/L (NO RANGE EST.); Microalbumin:Creatinine Ratio 7.1 mg/g CRE (<30 mg/g CRE)
[2023-04-09 13:36] LABS: ALB/GLOB Ratio 1.1 RATIO (0.9-2.4); AST(SGOT) 69 U/L (15-37); Alanine Aminotransfer ALT/SGPT 62 U/L (16-61); Albumin, Serum 3.6 g/dL (3.2-5.0); Alkaline Phosphatase 53 U/L (45-117); Anion Gap 10 (5-15); BUN 21 mg/dL (7-18); BUN/Creat Ratio 22.8 RATIO (10-20); Calcium,Total 9.2 mg/dL (8.5-10.1); Chloride 106 mmol/L (98-107); Cholesterol 156 mg/dL (200); Creatinine, Serum 0.92 mg/dL (0.70-1.30); EST Glomerular Filtration Rate 86 mL/min (>60); Est Glom Filt Rate - Afr Amer 104 mL/min (>60); Globulin 3.3 g/dL (2.2-4.2); Glucose 126 mg/dL (74-106); High Density Lipoprotein 32 mg/dL; PSA,Total - Annual Screen 0.99 ng/mL (0.00-4.00); Protein, Total 6.9 g/dL (6.4-8.2); Sodium Level 137 mmol/L (136-145); Thyroid Stim Hormone (TSH) 7.99 uIU/mL (0.358-3.74); Triglycerides 169 mg/dL; Very Low Density Lipoprotein 34 mg/dL (5-40)
== END | disposition home or self-care (01) ==
LOC: MFPLAB 10:54
PROVIDERS: PCP Family Medicine; Visit Provider Family Medicine
DX: E03.9 Hypothyroidism, unspecified (principal); E11.8 Type 2 diabetes mellitus with unspecified complications; Z12.5 Encounter for screening for malignant neoplasm of prostate
CPT/HCPCS: 36415; 80053; 80061; 82043; 82570; 84153; 84443; 85025; G0103

== ENCOUNTER → 2023-07-14 | Outpatient (CLI) | payer MEDICARE, OTHER, SELFPAY ==
[2023-07-14 12:05] LABS: Absolute Lymphocyte Count 2.66 X10^3/uL (0.83-4.51); Basophil# 0.05 X10^3/uL; Basophil% 0.8 % (0-1); Eosinophil# 0.23 X10^3/uL; Eosinophils% 3.5 % (0-5); Hematocrit 49.4 % (40-54); Hemoglobin 16.9 g/dL (13.0-16.5); Lymphocyte # 2.66 X10^3/ul (0.83-4.51); Lymphocyte % 40.4 % (19-41); Mean Corp Hgb Conc 34.2 g/dL (32-36); Mean Corpuscular Hgb 33.5 pg (27.0-32.0); Mean Platelet Vol. 10.3 fl (6.2-12.0); Monocyte# 0.62 X10^3/uL; Monocyte% 9.4 % (0-10); NRBC Flagged by Analyzer 0 % (0-5); Neutrophil % 45.6 % (47-70); Platelet Count 184 K/mm3 (150-450); RBC Distribution Width CV 12.9 % (11.6-14.6); RBC Distribution Width SD 46.7 fl (35.1-43.9); Red Blood Count 5.04 M/mm3 (4.6-6.2); White Blood Count 6.6 K/mm3 (4.4-11.0)
[2023-07-14 13:07] LABS: ALB/GLOB Ratio 0.9 RATIO (0.9-2.4); AST(SGOT) 52 U/L (15-37); Alanine Aminotransfer ALT/SGPT 57 U/L (16-61); Albumin, Serum 3.4 g/dL (3.2-5.0); Alkaline Phosphatase 57 U/L (45-117); Anion Gap 6 (5-15); BUN 18 mg/dL (7-18); BUN/Creat Ratio 18.2 RATIO (10-20); Calcium,Total 8.7 mg/dL (8.5-10.1); Chloride 106 mmol/L (98-107); Creatinine, Serum 0.99 mg/dL (0.70-1.30); EST Glomerular Filtration Rate 79 mL/min (>60); Est Glom Filt Rate - Afr Amer 96 mL/min (>60); Free T3 2.4 pg/mL (2.18-3.98); GGTP 276 U/L (15-85); Globulin 3.7 g/dL (2.2-4.2); Glucose 113 mg/dL (74-106); Potassium 3.8 mmol/L (3.5-5.1); Protein, Total 7.1 g/dL (6.4-8.2); Sodium Level 137 mmol/L (136-145); T4 Free Direct 1.13 ng/dL (0.76-1.46); Thyroid Stim Hormone (TSH) 8.04 uIU/mL (0.358-3.74)
[2023-07-14 13:24] LABS: Hemoglobin A1c 6.3 % (3.8-5.6)
== END | disposition home or self-care (01) ==
LOC: MFPLAB 10:15
PROVIDERS: PCP Family Medicine; Visit Provider Family Medicine
DX: E03.9 Hypothyroidism, unspecified (principal); E11.8 Type 2 diabetes mellitus with unspecified complications; K75.81 Nonalcoholic steatohepatitis (NASH)
CPT/HCPCS: 36415; 80053; 82977; 83036; 84439; 84443; 84481; 85025

== ENCOUNTER → 2023-08-07 | Outpatient (CLI) | payer MEDICARE, OTHER, SELFPAY ==
--- NOTE | 2023-08-07 09:31 | US_ITS ---
STUDY: ULTRASOUND BREAST - LEFT REASON FOR EXAM: Male, 73 years old. Palpable lump left breast. TECHNIQUE: Axial and longitudinal images of the LEFT breast were performed with a high resolution ultrasound transducer. # OF IMAGES: 20 COMPARISON: Comparison is made with prior mammogram done earlier in the day. Comparison is also made with prior sonogram dated January 28, 2023. FINDINGS: LEFT Breast: The retroareolar region of the left breast was examined. Stable retroareolar breast tissue in keeping with gynecomastia. US/Breast Limited Unilateral IMPRESSION: Stable examination. Findings suggestive of gynecomastia. ASSESSMENT CATEGORY: BIRADS Category 2: Benign. A letter regarding these results will be sent to the patient by the facility within 30 days. Electronically Signed: Blaine Huertas MD at 14:34 EDT ,
--- NOTE | 2023-08-07 10:00 | BI_ITS ---
MAMMOGRAPHY - UNILATERAL DIAGNOSTIC: LEFT BREAST REASON FOR EXAM: Male, 73 years old. Left breast lump for 2 months. Retroareolar tenderness. PERTINENT HISTORY: Non-contributory. TECHNIQUE: Digital unilateral breast leonor (3D mammographic acquisition) in the CC and MLO projections. 2-D mediolateral oblique (MLO) and craniocaudad (CC) views of both breasts were obtained. CAD: Full Field Digital Mammography with Computer Added Detection was performed. COMPARISON: Comparison is made with prior study of January 28, 2023. FINDINGS: Breast Composition: There are scattered areas of fibroglandular density. There are no dominant masses or suspicious calcifications. Mild increased breast tissue in the retroareolar region of the left breast suggestive of gynecomastia. No other significant abnormalities are identified. There has been no significant change since the prior study. BI/DIAG MAMM W/CAD, UNILAT IMPRESSION: Findings suggestive of a gynecomastia. Correlation with ultrasound is recommended. ASSESSMENT CATEGORY: BIRADS Category 0: Incomplete. Need additional imaging evaluation. A letter regarding these results will be sent to the patient by the facility within 30 days. Approximately 10% of breast cancers are not detected by mammography. A normal mammogram should not delay biopsy of a clinically suspicious abnormality. Electronically Signed: Blaine Huertsa MD at 10:17 EDT ,
== END | disposition home or self-care (01) ==
LOC: OPBI 09:30
PROVIDERS: PCP Family Medicine; Referring Provider Family Medicine; Visit Provider Family Medicine
DX: N63.20 Unspecified lump in the left breast, unspecified quadrant (principal); N62 Hypertrophy of breast
CPT/HCPCS: 76642; 77061; 77065; G0279

== ENCOUNTER → 2023-09-01 | Outpatient (CLI) | payer MEDICARE, OTHER, SELFPAY ==
[2023-09-01 12:51] LABS: Free T3 2.4 pg/mL (2.18-3.98); T4 Free Direct 1.17 ng/dL (0.76-1.46); Thyroid Stim Hormone (TSH) 7.89 uIU/mL (0.358-3.74)
== END | disposition home or self-care (01) ==
LOC: MFPLAB 10:18
PROVIDERS: PCP Family Medicine; Visit Provider Family Medicine
DX: E03.9 Hypothyroidism, unspecified (principal)
CPT/HCPCS: 36415; 84439; 84443; 84481

== ENCOUNTER → 2023-10-15 | Outpatient (CLI) | payer MEDICARE, OTHER, SELFPAY ==
[2023-10-15 13:16] LABS: Free T3 2.2 pg/mL (2.18-3.98); T4 Free Direct 1.25 ng/dL (0.76-1.46); Thyroid Stim Hormone (TSH) 2.38 uIU/mL (0.358-3.74)
== END | disposition home or self-care (01) ==
LOC: MFPLAB 10:33
PROVIDERS: PCP Family Medicine; Visit Provider Family Medicine
DX: E03.9 Hypothyroidism, unspecified (principal)
CPT/HCPCS: 36415; 84439; 84443; 84481

== ENCOUNTER → 2024-01-07 | Outpatient (CLI) | payer MEDICARE, OTHER, SELFPAY ==
[2024-01-07 13:03] LABS: Microalbumin,Random Urine 7.3 mg/L (NO RANGE EST.); Microalbumin:Creatinine Ratio 5.1 mg/g CRE (<30 mg/g CRE)
[2024-01-07 13:04] LABS: Absolute Lymphocyte Count 2.95 X10^3/uL (0.83-4.51); Absolute Neutrophil Count 3.6 X10^3/uL (2.0-7.7); Basophil# 0.07 X10^3/uL; Basophil% 0.9 % (0-1); Eosinophil# 0.19 X10^3/uL; Eosinophils% 2.5 % (0-5); Hematocrit 51.4 % (40-54); Hemoglobin 16.9 g/dL (13.0-16.5); Lymphocyte # 2.95 X10^3/ul (0.83-4.51); Lymphocyte % 38.5 % (19-41); Mean Corp Hgb Conc 32.9 g/dL (32-36); Mean Corpuscular Hgb 32.3 pg (27.0-32.0); Mean Corpuscular Volume 98.1 fL (80-94); Mean Platelet Vol. 10.5 fl (6.2-12.0); Monocyte# 0.79 X10^3/uL; Monocyte% 10.3 % (0-10); NRBC Flagged by Analyzer 0 % (0-5); Neutrophil # 3.64 X10^3/uL (2.7-7.7); Neutrophil % 47.5 % (47-70); Platelet Count 196 K/mm3 (150-450); RBC Distribution Width CV 13.2 % (11.6-14.6); RBC Distribution Width SD 47.7 fl (35.1-43.9); Red Blood Count 5.24 M/mm3 (4.6-6.2); White Blood Count 7.7 K/mm3 (4.4-11.0)
[2024-01-07 13:11] LABS: ALB/GLOB Ratio 0.9 RATIO (0.9-2.4); AST(SGOT) 67 U/L (15-37); Alanine Aminotransfer ALT/SGPT 65 U/L (16-61); Albumin, Serum 3.5 g/dL (3.2-5.0); Alkaline Phosphatase 59 U/L (45-117); Anion Gap 6 (5-15); BUN 19 mg/dL (7-18); BUN/Creat Ratio 20.4 RATIO (10-20); Calcium,Total 9.3 mg/dL (8.5-10.1); Chloride 107 mmol/L (98-107); Creatinine, Serum 0.93 mg/dL (0.70-1.30); EST Glomerular Filtration Rate 85 mL/min (>60); Est Glom Filt Rate - Afr Amer 103 mL/min (>60); Free T3 2.3 pg/mL (2.18-3.98); GGTP 290 U/L (15-85); Globulin 3.7 g/dL (2.2-4.2); Glucose 125 mg/dL (74-106); Protein, Total 7.2 g/dL (6.4-8.2); Sodium Level 138 mmol/L (136-145); T4 Free Direct 1.18 ng/dL (0.76-1.46); Thyroid Stim Hormone (TSH) 5.45 uIU/mL (0.358-3.74)
[2024-01-07 13:57] LABS: Hemoglobin A1c 6.7 % (3.8-5.6)
== END | disposition home or self-care (01) ==
LOC: MFPLAB 10:02
PROVIDERS: PCP Family Medicine; Visit Provider Family Medicine
DX: E11.8 Type 2 diabetes mellitus with unspecified complications (principal); E66.9 Obesity, unspecified; K75.81 Nonalcoholic steatohepatitis (NASH); E03.9 Hypothyroidism, unspecified
CPT/HCPCS: 36415; 80053; 82043; 82570; 82977; 83036; 84439; 84443; 84481; 85025

== ENCOUNTER → 2024-03-04 | Outpatient (CLI) | payer MEDICARE, OTHER, SELFPAY ==
--- NOTE | 2024-03-03 10:00 | RAD_ITS ---
STUDY: X-RAY - ORBITS REASON FOR EXAM: Male, 73 years old. MRI CLEARANCE -- -- H/O METAL IN EYE, UNSURE WHICH EYE TECHNIQUE: 2 view(s) of the orbits were obtained. COMPARISON: None. FINDINGS: Normal bilateral orbits without a metallic orbital foreign body. Normal visualized facial bones. Normal paranasal sinuses. The soft tissue structures are unremarkable. RAD/Orbits for Foreign Body IMPRESSION: No demonstrated metallic orbital foreign body. The patient is cleared for an MRI examination. Electronically Signed: Blaine Huertas MD at 12:45 EDT ,
--- NOTE | 2024-03-04 07:21 | MRI_ITS ---
MR Abdomen WO/W Contrast 03/04/2024 8:11 AM COMPARISON: None CLINICAL HISTORY: CIRRHOSIS TECHNIQUE: Multiplanar T1 and T2 weighted, diffusion and dynamic post-gadolinium images were obtained through the abdomen before and after administration of 21 cc of IV Clariscan. FINDINGS: Liver: Nodular contour compatible with cirrhosis. No suspicious T2 hyperintense or arterially hyperenhancing mass. Gallbladder: Unremarkable Spleen: Unremarkable Pancreas: Unremarkable Adrenal Glands: Unremarkable Kidneys: Simple 2.5 cm nonenhancing cyst in the right lower renal pole. GI Tract: Unremarkable Lymphadenopathy: Absent Ascites: Absent Bones: No suspicious lesions MRI/MRI Abd WITH and W/O Contrast IMPRESSION: Cirrhotic liver with no suspicious T2 hyperintense or arterially hyperenhancing mass. Recommend continued follow-up multiphase abdominal MRI w/ and w/out contrast in 6 months. Electronically Signed: Bhavik Dee MD at 16:58 EDT ,
[2024-03-04 13:51] LABS: CREATININE FINGERSTICK < 1.0 mg/dL (0.70-1.30); EGFR FINGERSTICK > 60.0000 mL/min (>60)
== END | disposition home or self-care (01) ==
LOC: MRI 07:12
PROVIDERS: PCP Family Medicine; Referring Provider Internal Medicine Gastroenterology; Visit Provider Internal Medicine Gastroenterology
DX: Z01.818 Encounter for other preprocedural examination (principal); K74.60 Unspecified cirrhosis of liver
CPT/HCPCS: 70030; 74183; A9575; A4216

== ENCOUNTER → 2024-03-26 | Outpatient (CLI) | payer MEDICARE, OTHER, SELFPAY ==
[2024-03-26 13:27] LABS: Free T3 2.6 pg/mL (2.18-3.98); T4 Free Direct 1.19 ng/dL (0.76-1.46); Thyroid Stim Hormone (TSH) 3.26 uIU/mL (0.358-3.74)
[2024-03-27 11:10] LABS: Alpha Antitrypsin Serum 120 mg/dL (101-187)
[2024-03-29 15:07] LABS: Deamidated Gliadin IgA 3 units (0-19); Deamidated Gliadin IgG 2 units (0-19); Endomysial Antibody IgA Negative (Negative); Immunoglobulin A 244 mg/dL (61-437); t-Transglutaminase IgA <2 U/mL (0-3)
== END | disposition home or self-care (01) ==
LOC: MFPLAB 10:20
PROVIDERS: PCP Family Medicine; Visit Provider Family Medicine
DX: K75.81 Nonalcoholic steatohepatitis (NASH) (principal); E03.9 Hypothyroidism, unspecified
CPT/HCPCS: 36415; 82103; 82784; 83516; 84439; 84443; 84481; 86255

== ENCOUNTER → 2024-08-26 | Outpatient (CLI) | payer MEDICARE, OTHER, SELFPAY ==
[2024-08-26 12:55] LABS: ALB/GLOB Ratio 0.9 RATIO (0.9-2.4); AST(SGOT) 59 U/L (15-37); Alanine Aminotransfer ALT/SGPT 61 U/L (16-61); Albumin, Serum 3.5 g/dL (3.2-5.0); Alkaline Phosphatase 69 U/L (45-117); Anion Gap 7 (5-15); BUN 16 mg/dL (7-18); BUN/Creat Ratio 16.9 RATIO (10-20); Calcium,Total 9.2 mg/dL (8.5-10.1); Chloride 107 mmol/L (98-107); Creatinine, Serum 0.95 mg/dL (0.70-1.30); EST Glomerular Filtration Rate 83 mL/min (>60); Est Glom Filt Rate - Afr Amer 101 mL/min (>60); Globulin 4.1 g/dL (2.2-4.2); Glucose 119 mg/dL (74-106); Potassium 3.6 mmol/L (3.5-5.1); Protein, Total 7.6 g/dL (6.4-8.2); Sodium Level 139 mmol/L (136-145)
[2024-08-26 13:00] LABS: International Normalized Ratio 1.2; Partial Thromboplast Time 29.6 Seconds (24.1-36.2); Prothrombin Time (Protime)PT. 15.4 SECONDS (11.7-14.9)
[2024-08-27 08:12] LABS: AFP, Tumor Marker 4.5 ng/mL (0.0-8.4)
== END | disposition home or self-care (01) ==
PROVIDERS: PCP Family Medicine; Referring Provider Internal Medicine Gastroenterology; Visit Provider Internal Medicine Gastroenterology
DX: K74.60 Unspecified cirrhosis of liver (principal)
CPT/HCPCS: 36415; 80053; 82105; 85610; 85730

== ENCOUNTER → 2024-10-05 | Outpatient (CLI) | payer MEDICARE, OTHER, SELFPAY ==
--- NOTE | 2024-10-05 08:48 | US_ITS ---
EXAM: US ABDOMEN LIMITED, RIGHT UPPER QUADRANT CLINICAL INDICATION: CIRRHOSIS TECHNIQUE: Real-time ultrasound of the right upper quadrant with image documentation. COMPARISON: No relevant prior studies available. FINDINGS: LIVER: Coarse liver echogenicity consistent with the history of cirrhosis. No space-occupying lesion within the liver is identified. No intrahepatic biliary ductal dilation. GALLBLADDER: Normal. No shadowing gallstone. No gallbladder wall thickening is demonstrated. No pericholecystic fluid. Negative sonographic Zhou''s sign. COMMON BILE DUCT: Unremarkable as visualized. The proximal common bile duct is normal size. PANCREAS: Unremarkable as visualized. No focal abnormality is demonstrated in the pancreas. No pancreatic ductal dilatation. RIGHT KIDNEY: 3.2 cm cyst arises from the lower pole of the right kidney. No additional imaging indicated. There is no hydronephrosis. No shadowing calculus. US/Abdomen Limited IMPRESSION: Liver appearance consistent with cirrhosis. Electronically Signed: Torrey Yen MD at 9:26 EST ,
== END | disposition home or self-care (01) ==
LOC: US 08:47
PROVIDERS: PCP Family Medicine; Referring Provider Internal Medicine Gastroenterology; Visit Provider Internal Medicine Gastroenterology
DX: K74.60 Unspecified cirrhosis of liver (principal)
CPT/HCPCS: 76705

== ENCOUNTER → 2025-04-13 | Outpatient (CLI) | payer MEDICARE, OTHER, SELFPAY ==
[2025-04-13 12:33] LABS: Absolute Lymphocyte Count 2.81 X10^3/uL (0.83-4.51); Absolute Neutrophil Count 3.1 X10^3/uL (2.0-7.7); Basophil# 0.06 X10^3/uL; Basophil% 0.9 % (0-1); Eosinophil# 0.19 X10^3/uL; Eosinophils% 2.8 % (0-5); Hematocrit 45.8 % (40-54); Hemoglobin 15.9 g/dL (13.0-16.5); Lymphocyte # 2.81 X10^3/ul (0.83-4.51); Lymphocyte % 40.8 % (19-41); Mean Corp Hgb Conc 34.7 g/dL (32-36); Mean Corpuscular Hgb 33.5 pg (27.0-32.0); Mean Corpuscular Volume 96.6 fL (80-94); Mean Platelet Vol. 10.2 fl (6.2-12.0); Monocyte# 0.68 X10^3/uL; Monocyte% 9.9 % (0-10); NRBC Flagged by Analyzer 0 % (0-5); Neutrophil # 3.14 X10^3/uL (2.7-7.7); Neutrophil % 45.5 % (47-70); Platelet Count 157 K/mm3 (150-450); RBC Distribution Width CV 13.2 % (11.6-14.6); RBC Distribution Width SD 47.6 fl (35.1-43.9); Red Blood Count 4.74 M/mm3 (4.6-6.2); White Blood Count 6.9 K/mm3 (4.4-11.0)
[2025-04-13 12:38] LABS: International Normalized Ratio 1.1; Prothrombin Time (Protime)PT. 14.4 SECONDS (11.7-14.9)
[2025-04-13 13:31] LABS: ALB/GLOB Ratio 1.2 RATIO (0.9-2.4); AST(SGOT) 55 U/L (<=37); Alanine Aminotransfer ALT/SGPT 37 U/L (<=46); Albumin, Serum 3.7 g/dL (3.4-4.8); Alkaline Phosphatase 69 U/L (40-129); Anion Gap 11 (5-15); BUN 17 mg/dL (4-19); BUN/Creat Ratio 21.9 RATIO (10-20); Carbon Dioxide 21.2 mmol/L (21.0-32.0); Chloride 106 mmol/L (98-108); Cholesterol 171 mg/dL (<=200); Creatinine, Serum 0.77 mg/dL (0.70-1.20); EST Glomerular Filtration Rate 95 (>60); Free T3 2.8 pg/mL (2.18-3.98); Globulin 3.1 g/dL (2.2-4.2); Glucose 124 mg/dL (70-99); High Density Lipoprotein 35 mg/dL; Low Density Lipoprotein Calc. 105 mg/dL; Protein, Total 6.8 g/dL (5.9-8.4); Sodium Level 137 mmol/L (133-145); Total Bilirubin 1.22 mg/dL (0.00-1.30); Triglycerides 154 mg/dL; Very Low Density Lipoprotein 31 mg/dL (5-40); cholesterol:hdl ratio screen 4.84
[2025-04-13 13:36] LABS: Microalbumin,Random Urine < 12.0 mg/L (NO RANGE EST.); Microalbumin:Creatinine Ratio UNABLE TO CALCULATE mg/g CRE
[2025-04-14 04:07] LABS: GGTP 190 IU/L (0-65)
== END | disposition home or self-care (01) ==
LOC: MFPLAB 10:32
PROVIDERS: PCP Family Medicine; Referring Provider Family Medicine; Visit Provider Family Medicine
DX: E03.9 Hypothyroidism, unspecified (principal); K74.60 Unspecified cirrhosis of liver
CPT/HCPCS: 36415; 80053; 80061; 82043; 82570; 82977; 84439; 84443; 84481; 85025; 85610

== ENCOUNTER → 2025-04-18 | Outpatient (CLI) | payer MEDICARE, OTHER, SELFPAY ==
[2025-04-18 18:03] LABS: Hematocrit 46.6 % (40-54); Mean Corp Hgb Conc 34.3 g/dL (32-36); Mean Corpuscular Hgb 33.3 pg (27.0-32.0); Mean Corpuscular Volume 97.1 fL (80-94); Mean Platelet Vol. 10.3 fl (6.2-12.0); Platelet Count 191 K/mm3 (150-450); RBC Distribution Width CV 13.2 % (11.6-14.6); RBC Distribution Width SD 47.6 fl (35.1-43.9); White Blood Count 8.6 K/mm3 (4.4-11.0)
[2025-04-18 18:09] LABS: Prothrombin Time (Protime)PT. 13.7 SECONDS (11.7-14.9)
[2025-04-18 18:11] LABS: Partial Thromboplast Time 27.8 Seconds (24.1-36.2)
[2025-04-18 18:51] LABS: ALB/GLOB Ratio 1.2 RATIO (0.9-2.4); AST(SGOT) 67 U/L (<=37); Alanine Aminotransfer ALT/SGPT 44 U/L (<=46); Alkaline Phosphatase 71 U/L (40-129); Anion Gap 13 (5-15); BUN 16 mg/dL (4-19); BUN/Creat Ratio 18.6 RATIO (10-20); Calcium,Total 9.9 mg/dL (7.6-11.0); Carbon Dioxide 20.8 mmol/L (21.0-32.0); Chloride 102 mmol/L (98-108); Creatinine, Serum 0.83 mg/dL (0.70-1.20); EST Glomerular Filtration Rate 92 (>60); Globulin 3.4 g/dL (2.2-4.2); Glucose 90 mg/dL (70-99); Potassium 3.9 mmol/L (3.3-5.1); Protein, Total 7.4 g/dL (5.9-8.4); Sodium Level 136 mmol/L (133-145); Total Bilirubin 1.04 mg/dL (0.00-1.30)
[2025-04-20 04:07] LABS: AFP, Tumor Marker 5.2 ng/mL (0.0-8.4)
== END | disposition home or self-care (01) ==
LOC: MTLAB 14:28
PROVIDERS: PCP Family Medicine; Referring Provider Internal Medicine Gastroenterology; Visit Provider Internal Medicine Gastroenterology
DX: K74.60 Unspecified cirrhosis of liver (principal)
CPT/HCPCS: 36415; 80053; 82105; 85027; 85610; 85730

== ENCOUNTER → 2025-04-25 | Outpatient (CLI) | payer MEDICARE, OTHER, SELFPAY ==
--- NOTE | 2025-04-25 07:50 | US_ITS ---
PROCEDURE: ABDOMEN LIMITED 04/25/2025 REASON FOR EXAM: CIRRHOSIS COMPARISON: Prior sonogram dated October 05, 2024. FINDINGS: Liver: Diffusely echogenic suggesting fatty infiltration. The liver measures 17.1 cm. Decreased hepatic flow suggestive of possible portal hypertension. Gallbladder: Solitary gallstone measuring 1.6 cm 1.2 cm x 0.6 cm. No evidence of pericholecystic fluid. Negative Zhou's sign. Mild thickening of the gallbladder wall measuring 4.2 mm. Common bile duct: Normal measuring 3.6 mm. . Pancreas: Normal Other: Stable 3.1 cm 3.2 cm 2.8 cm cyst in the inferior pole of the right kidney. US/Abdomen Limited IMPRESSION: Borderline hepatomegaly with diffuse fatty infiltration of the liver. Solitary gallstone in the neck of the gallbladder. Stable right renal cyst. Reading Location: [place] [id number]
== END | disposition home or self-care (01) ==
LOC: OPUS 07:46 → US 07:49
PROVIDERS: PCP Family Medicine; Referring Provider Internal Medicine Gastroenterology; Visit Provider Internal Medicine Gastroenterology
DX: K74.60 Unspecified cirrhosis of liver (principal)
CPT/HCPCS: 76705

== ENCOUNTER → 2025-10-11 | Outpatient (CLI) | payer MEDICARE, OTHER, SELFPAY ==
[2025-10-11 13:04] LABS: AST(SGOT) 54 U/L (<=37); Alanine Aminotransfer ALT/SGPT 44 U/L (<=46); Albumin, Serum 3.7 g/dL (3.4-4.8); Alkaline Phosphatase 64 U/L (40-129); Anion Gap 11 (5-15); BUN 16 mg/dL (4-19); BUN/Creat Ratio 19.2 RATIO (10-20); Calcium,Total 8.9 mg/dL (7.6-11.0); Carbon Dioxide 23.5 mmol/L (21.0-32.0); Chloride 104 mmol/L (98-108); Globulin 3.0 g/dL (2.2-4.2); Glucose 125 mg/dL (70-99); Potassium 3.9 mmol/L (3.3-5.1)
== END | disposition home or self-care (01) ==
LOC: MFPLAB 09:19
PROVIDERS: PCP Family Medicine; Visit Provider Family Medicine
DX: E11.8 Type 2 diabetes mellitus with unspecified complications (principal)
CPT/HCPCS: 36415; 80053; 83036

== ENCOUNTER → 2025-10-19 | Outpatient (CLI) | payer MEDICARE, OTHER, SELFPAY ==
[2025-10-19 12:44] LABS: Prothrombin Time (Protime)PT. 14.9 SECONDS (11.7-14.9)
== END | disposition home or self-care (01) ==
LOC: MFPLAB 10:27
PROVIDERS: PCP Family Medicine; Visit Provider Internal Medicine Gastroenterology
DX: K74.60 Unspecified cirrhosis of liver (principal)
CPT/HCPCS: 36415; 85610

== ENCOUNTER → 2025-10-20 | Outpatient (CLI) | payer MEDICARE, OTHER, SELFPAY ==
[2025-10-20 15:28] LABS: Hematocrit 45.3 % (40-54); Hemoglobin 15.9 g/dL (13.0-16.5); Mean Corp Hgb Conc 35.1 g/dL (32-36); Mean Corpuscular Volume 96.6 fL (80-94); Mean Platelet Vol. 10.4 fl (6.2-12.0); Platelet Count 177 K/mm3 (150-450); RBC Distribution Width CV 13.3 % (11.6-14.6); RBC Distribution Width SD 48.2 fl (35.1-43.9); Red Blood Count 4.69 M/mm3 (4.6-6.2); White Blood Count 8.1 K/mm3 (4.4-11.0)
[2025-10-20 17:51] LABS: AST(SGOT) 61 U/L (<=37); Alanine Aminotransfer ALT/SGPT 46 U/L (<=46); Albumin, Serum 3.8 g/dL (3.4-4.8); Alkaline Phosphatase 80 U/L (40-129); Anion Gap 12 (5-15); BUN 18 mg/dL (4-19); BUN/Creat Ratio 20.0 RATIO (10-20); Calcium,Total 9.5 mg/dL (7.6-11.0); Carbon Dioxide 22.3 mmol/L (21.0-32.0); Chloride 102 mmol/L (98-108); Globulin 3.0 g/dL (2.2-4.2); Glucose 167 mg/dL (70-99); Potassium 3.9 mmol/L (3.3-5.1)
== END | disposition home or self-care (01) ==
LOC: MFPLAB 14:03
PROVIDERS: PCP Family Medicine; Visit Provider Internal Medicine Gastroenterology
DX: K74.60 Unspecified cirrhosis of liver (principal)
CPT/HCPCS: 36415; 80053; 82105; 85027

== ENCOUNTER → 2025-10-21 | Outpatient (CLI) | payer MEDICARE, OTHER, SELFPAY ==
--- NOTE | 2025-10-21 08:03 | MRI_ITS ---
PROCEDURE: MRI ABD WITH AND W/O CONTRAST 10/21/2025 REASON FOR EXAM: CIRRHOSIS TECHNIQUE: Procedure Code: [id number] Modality: MR Procedure: MRI ABD WITH AND W/O CONTRAST Multiplanar and multisequence images were obtained. CONTRAST: [place] VOLUME: 23 mL COMPARISON: 03/04/2024 FINDINGS: Liver: Cirrhotic lobulated appearance of the liver parenchyma with diffuse intrinsic hepatic steatosis. Multifocal areas of heterogeneous T2 signal within the interstitium may reflect early fibrosis. Within the caudate lobe, segment 1 (image 33 series 16), there is a 3.2 x 2.8 cm mass with capsular enhancement. Arterial phase is not optimal. There is no corresponding T2 signal abnormality or restricted diffusion. No additional liver mass seen. No biliary ductal dilatation. Patent portal vein Biliary: Normal gallbladder and biliary tree. Pancreas: Mild diffuse pancreatic atrophy. No ductal dilatation. Spleen: Normal Adrenals: Unremarkable Kidneys: Multiple right renal cysts. No hydronephrosis or focal mass. Peritoneum / Retroperitoneum: No ascites. No retroperitoneal mass. Lymph Nodes: There are small lymph nodes in the solitario hepatis adjacent to the caudate lobe the largest measuring 13 by 9 mm (image 27 series 16). Major Vessels: Patent. No aneurysm. Bones: Normal Other: Signs of portal hypertension with gastroesophageal varices. MRI/MRI Abd WITH and W/O Contrast IMPRESSION: Liver cirrhosis with severe hepatic steatosis. 3.2 cm mass in the caudate lobe with findings suspicious for hepatocellular car cinoma . LI-RADS OVERALL FINAL ASSESSMENT: LI-RADS 4 probably HCC. Small periportal lymph nodes demonstrating enhancement and restricted diffusion but not pathologically enlarged by size criteria. Gastroesophageal varices. No splenomegaly. No ascites. Reading Location: [id number]
--- OUTSIDE RECORDS SUMMARY | 2025-10-21 08:23 | XMS RPT_ITS | CCD ---
Author Organization [facility] Care Team Providers Care Pin Sticker Name Role Phone ALEXANDER GARCIA, AMBER Tolentino Primary Care Physician ALEXANDER GARCIA, AMBER Tolentino Primary Care Unavailable VLAD GARCIA, DR LION Attending Unavailabl e Alexander GARCIA, Dr. Ramirez Primary Care Provider Alexander GARCIA, Dr. Ramirez Attending Provider [phone] Alexander GARCIA, Dr. Ramirez Referring Provider Vlad GARCIA, Dr. Lion Attending Provider Vlad GARCIA, Dr. Lion Referring Provider Jabour, Vincent Referring Unavailable Jabour, Vincent Attending Unavailable Munoz, Amber Primary Care Unavailable Jabour, Vincent Attending Unavailable Jabour, Vincent Referring Unavailable Munoz, Amber Primary Care Unavailable Muonz, Amber Referring Unavailable Munoz, Amber Primary Care Unavailable Munoz, Amber Attending Unavailable Jabour, Gerryent Attending Unavailable Jabour, Vincent Referring Unavailable Munoz, Amber Primary Care Unavailable Jabour, Vincent Attending Unavailable Jabour, Vincent Referring Unavailable Munoz, Amber Primary Care Unavailable Allergies Allergy Classification Reported Allergen(s) Allergy Type Date of Onset Reaction(s) Facility (10 sources) Aspirin Drug Allergy 9 Anaphylaxis [facility] (11 sources) Codeine; Translations: [codeine] Drug Allergy 9 Nausea/Vom/Diar lissette [facility] (10 sources) Morphine Drug Allergy 9 Other [facility] (11 sources) NSAIDS (Non-Steroidal Anti-Inflamma; Translations: [NSAIDS (Non-Steroidal Anti-Inflamma] Allergy to substance 9 Anaphylaxis [facility] (1 source) Non-steroidal anti-inflammato ry agent; Translations: [NSAIDs] Drug allergy anaphalxis [facility] (1 source) Aspirin Drug Allergy 9 [facility] (1 source) Codeine Drug Allergy 9 [facility] (1 source) Morphine Drug Allergy 9 [facility] Medications Current Medications Medication Drug Class(es) Dates Sig (Normalized) Sig (Original) Ascorbic Acid (11 sources) Vitamin C Start: 10-18-2024 Vitamin C qDay , 0 Refill(s) Start Date: 10/18/24 Status: Ordered Start: 09-30-2019 take 1 tablet by mouth once da caryl Ascorbic Acid (Vitamin C) 1,000 MG tablet Active 1000 mg PO DAILY September 30, 2019 1:00am bisoprolol fumarate 10 mg oral tablet (11 sources) beta-Adrenergic Roderick Start: 10-18-2016 take 10 mg by mouth at bedtime Bisoprolol Fumarate Active 10 mg PO AT BEDTIME October 18, 2016 1:00am clopidogrel (11 sources) P2Y12 Platelet Inhibitor Start: 10-18-2024 clopidogrel Oral, 0 Refill(s) Start Date: 10/18/24 Status: Ordered Start: 09-30-2019 Clopidogrel 75 MG tablet Active 37.5 mg PO DAILY September 30, 2019 1:00am Start: 09-30-2019 take 37.5 mg by mout h once daily Clopidogrel Active 37.5 MG PO DAILY September 30, 2019 1:00am Fish Oils (1 source) Start: 10-18-2024 Fish Oil 1000 mg oral capsule Dose : 1,000 mg = 1 cap(s), Oral, qDay, # 90 cap(s), 0 Refill(s) Start Date: 10/18/24 Status: Ordered Glucos Sul 9qyl-Wff-Ithzk-C- Mn (7 sources) Start: 09-30-2019 Glucos Sul 2kc m-Okn-Oywzv-C-Mn Active 1 EACH PO DAILY September 30, 2019 9:24am Start: 09-30-2019 Glucos Sul 2kc m-Ecn-Ahvrn-C-Mn Active 1 EACH PO DAILY September 30, 2019 1:00am Start: 09-30-2019 Glucos Sul 2kc b-Igp-Ntjil-C-Mn Active 1 EACH PO DAILY September 30, 2019 12:00am Glucos Sul 1cma-Nbn-Tfout-C-Mn 1 EACH capsule (3 sources) Start: 09-30-2019 take 1 capsule by mouth once daily Glucos Sul 5rwb-Mkh-Lwigz-C-Mn 1 EACH capsule Active 1 NMA PO DAILY September 30, 2019 1:00am hydroCHLOROthiazide 25 mg / spironolactone 25 mg oral tablet (1 source) Thiazide Diuretic, Aldosterone Antagonist Start: 10-18-2024 take 1 tablet by mouth once daily hydrochlorothiazide-sp ironolactone 25 mg-25 mg oral tablet Dose = 1 tab(s), Oral, Daily, # 30 tab(s), 0 Refill(s) Start Date: 10/18/24 Status: Ordered hydroCHLOROthiazide 25 mg / triamterene 37.5 mg oral tablet (10 sources) Potassium-spari ng Diuretic, Thiazide Diuretic Start: 10-18-2016 take 1 tablet by mouth once daily Triamterene/Hydrochlor othiazid (Triamterene-Hctz 37.5-25 Mg Tb) 1 EACH tablet Active 1 {tbl} PO DAILY October 18, 2016 1:00am levothyroxine (12 sources) l-Thyroxine Start: 10-18-2024 Start: 10-18-2024 levothyroxine 137 mcg (0.137 mg) oral tablet Dose : 137 mcg = 1 tab(s), Oral, qDay, 0 Refill(s) Start Date: 10/18/24 Status: Ordered Start: 10-18-2016 take 2 tablets by [facility] once daily Levothyroxine 50 MCG tablet Active 100 ug PO DAILY October 18, 2016 1:00am Start: 10-18-2016 take 100 ug by mouth once vincent y Levothyroxine Active 100 MCG PO DAILY October 18, 2016 1:00am losartan potassium 50 mg oral tablet (11 sources) Angiotensin 2 Receptor Roderick Start: 10-19-2016 take 1 tablet by mouth at bedtime Losartan 50 MG tablet Active 50 mg PO AT BEDTIME October 19, 2016 1:00am metFORMIN hydrochloride 500 mg oral tablet (12 sources) Biguanide Start: 09-30-2019 take 1 tablet by mouth twice daily at mealtime Metformin 500 MG tablet Active 500 mg PO TWICE DAILY WITH MEALS September 30, 2019 1:00am Multi Vitamin+ oral liquid (1 source) Start: 10-18-2024 Multi Vitamin+ oral liquid 0 Refill(s) Start Date: 10/18/24 Status: Ordered Multivitamin (Daily Multiple) 1 EACH tablet (10 sources) Start: 10-18-2016 take 1 tablet by mouth once daily Multivitamin (Daily Multiple) 1 EACH tablet Active 1 EACH PO DAILY October 18, 2016 8:37pm Start: 10-18-2016 take 1 tablet by power th once daily Multivitamin (Daily Multiple) 1 EACH tablet Active 1 NMA PO DAILY October 18, 2016 1:00am Start: 10-18-2016 take 1 tablet by power th once daily Multivitamin (Daily Multiple) 1 EACH tablet Active 1 EACH PO DAILY October 18, 2016 1:00am Start: 10-18-2016 take 1 tablet by power th once daily Multivitamin (Daily Multiple) 1 EACH tablet Active 1 EACH PO DAILY October 18, 2016 12:00am So-5-Kxa-Epa-Fish Oil-Vit D3 (7 sources) Start: 10-18-2016 Xc-4-Oyi-Epa-F stanislaw Oil-Vit D3 Active 1 EACH PO DAILY October 18, 2016 8:37pm Start: 10-18-2016 Qe-6-Jef-Epa-F stanislaw Oil-Vit D3 Active 1 EACH PO DAILY October 18, 2016 1:00am Start: 10-18-2016 Cu-2-Rar-Epa-F stanislaw Oil-Vit D3 Active 1 EACH PO DAILY October 18, 2016 12:00am Lx-8-Rmu-Epa-Fish Oil-Vit D3 1 EACH capsule (3 sources) Start: 10-18-2016 take 1 capsule by mouth once daily Ua-8-Dss-Epa-Fish Oil-Vit D3 1 EACH capsule Active 1 NMA PO DAILY October 18, 2016 1:00am Osteo Bi-Flex Advanced oral tablet (1 source) Start: 10-18-2024 take 1 tablet by mouth once daily at mealtime Osteo Bi-Flex Advanced oral tablet Dose = 1 tab(s), Oral, Daily, 0 Refill(s), Take with food Start Date: 10/18/24 Status: Ordered pioglitazone 30 mg oral tablet (10 sources) Peroxisome Proliferator Receptor alpha Agonist, Peroxisome Proliferator Receptor gamma Agonist, Thiazolidinedione Start: 09-30-2019 take 1 tablet by mouth once daily Pioglitazone 30 MG tablet Active 30 mg PO DAILY September 30, 2019 1:00am pravastatin sodium 40 mg oral tablet (11 sources) HMG-CoA Reductase Inhibitor Start: 09-30-2019 take 1 tablet by mouth at bedtime Pravastatin 40 MG tablet Active 40 mg PO AT BEDTIME September 30, 2019 1:00am selenium 200 mcg oral capsule (1 source) Start: 10-18-2024 selenium 200 mcg oral capsule Dose : 200 mcg = 1 cap(s), Oral, qDay, with food, # 60 cap(s), 0 Refill(s) Start Date: 10/18/24 Status: Ordered Vitamin E (11 sources) Start: 10-18-2024 vitamin E Oral, 0 Refill(s) Start Date: 10/18/24 Status: Ordered Start: 09-30-2019 take 1 capsule by [facility] once daily Vitamin E 1,000 UNIT capsule Active 1000 U PO DAILY September 30, 2019 1:00am zinc acetate 50 mg oral caps ule (1 source) Start: 10-18-2024 zinc (as aceta te) 50 mg oral capsule Dose : 50 mg = 1 cap(s), Oral, TID, # 250 cap(s), 0 Refill(s) Start Date: 10/18/24 Status: Ordered Problems Problem Classification Problem Date Documented Da te Episodic/Chronic Disorders of lipid metabolism (10 sources) Hypertriglyceridemi a; Translations: [Pure hyperglyceridemia] 10-01-2019 Chronic Esophageal disorders (2 sources) Gastro-esophageal reflux disease without esophagitis; Translations: [Gastro-esophageal reflux disease without esophagitis] Onset: 10-18-2024 Chronic Other and unspecified benign neoplasm (10 sources) History of polyp of colon; Translations: [Personal history of colonic polyps] 10-01-2019 Episodic Other fractures (10 sources) Compression fracture of lumbar spine; Translations: [Wedge compression fracture of unspecified lumbar vertebra, initial encounter for closed fracture] 10-01-2019 Episodic Other liver diseases (1 source) Unspecified cirrhosis of liver; Translations: [Unspecified cirrhosis of liver] Onset: 04-28-2025 Chronic Residual codes; unclassified (10 sources) History of clinical finding in subject; Translations: [Personal history of other specified conditions] 11-18-2013 Episodic Thyroid disorders (1 source) Hypothyroidism, unspecified; Translations: [Hypothyroidism, unspecified] Onset: 06-03-2025 Chronic Results Test Name Value Interpretation Reference Range Facility Abdomen Limitedon 04-25-2025 Abdomen Limited [facility] [address] [place], [place] [address] Abdomen Limited MR#: [id number] Acct: [id number] Name: ANGELIC ROUSE Rep #: [id number] : 1950 M 75 From: Blaine james MD PCP: Dr. Amber Munoz MD Status: REG CLI Study: Abdomen Limited Date of Exam: 04/25/25 Exam# [id number] Ordering Dr: Ayad Chu MD PROCEDURE: ABDOMEN LIMITED 04/25/2025 REASON FOR EXAM: CIRRHOSIS COMPARISON: Prior sonogram dated October 05, 2024. FINDINGS: Liver: Diffusely echogenic suggesting fatty infiltration. The liver measures 17.1 cm. Decreased hepatic flow suggestive of possible portal hypertension. Gallbladder: Solitary gallstone measuring 1.6 cm 1.2 cm x 0.6 cm. No evidence of pericholecystic fluid. Negative Zhou's sign. Mild thickening of the gallbladder wall measuring 4.2 mm. Common bile duct: Normal measuring 3.6 mm. . Pancreas: Normal Other: Stable 3.1 cm 3.2 cm 2.8 cm cyst in the inferior pole of the right kidney. US/Abdomen Limited IMPRESSION: Borderline hepatomegaly with diffuse fatty infiltration of the liver. Solitary gallstone in the neck of the gallbladder. Stable right renal cyst. Reading Location: [place] [address] CC: Dr. Amber Munoz MD; Dr. 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 AFP, Tumor Markeron 04-20-20 25 AFP TUMOR [place] 5.2 ng/mL Normal 0.0-8.4 [facility] Comment on above: Order Comment: N Result Comment: [employer] Electrochemiluminescence Immunoassay (ECLIA) Values obtained with different assay methods or kits cannot be used interchangeably. Results cannot be interpreted as absolute evidence of the presence or absence of malignant disease. This test is not interpretable in females. Performed at: [address] [id number] Commercial Representative: Ayad Luis PhD, Phone: [phone] Performed By: #### L 300.4310, L3300.0700, L500.4050, L300.3900, L100.0500 #### [facility] [address] [place], [address] Activated partial thrombopla stin time (aPTT) in platelet poor plasma by coagulation aOrdered By: Ayad Chu on 04-18-2025 aPTT Coag (PPP) [Time] 27.8 s 24.1-36.2 [facility] Anion gap in Serum or Plasma Ordered By: Ayad Chu on 04-18-2025 Anion gap [Moles/Vol] 13 mmol/L 5-15 [facility] BUN/creatinine ratioOrdered By: Ayad Chu on 04-18-2025 Urea nitrogen/Creatinine [Mass ratio] 18.6 mg/mg 10-20 [facility] Bilirubin, totalOrdered By: Ayad Chu on 04-18-2025 Bilirubin [Mass/Vol] 1.04 mg/dL 0.00-1.30 [facility] CBC-Complete Blood Cnt No Di ffon 04-18-2025 Erythrocyte distribution width (RBC) [Ratio] 13.2 % Normal 11.6-14.6 [facility] Comment on above: Performed By: #### L 300.4310, L3300.0700, L500.4050, L300.3900, L100.0500 #### [facility] [address] [place], [address] Hematocrit (Bld) [Volume fraction] 46.6 % Normal 40-54 [facility] Comment on above: Performed By: #### L 300.4310, L3300.0700, L500.4050, L300.3900, L100.0500 #### [facility] [address] [place], [address] Hemoglobin (Bld) [Mass/Vol] 16.0 g/dL Normal 13.0-16.5 [facility] Comment on above: Performed By: #### L 300.4310, L3300.0700, L500.4050, L300.3900, L100.0500 #### [facility] [address] [place], [address] MCH (RBC) [Entitic mass] 33.3 pg High 27.0-32.0 [facility] Comment on above: Performed By: #### L 300.4310, L3300.0700, L500.4050, L300.3900, L100.0500 #### [facility] [address] [place], [address] MCHC (RBC) [Mass/Vol] 34.3 g/dL Normal 32-36 [facility] Comment on above: Performed By: #### L 300.4310, L3300.0700, L500.4050, L300.3900, L100.0500 #### [facility] [address] [place], [address] MCV (RBC) [Entitic vol] 97.1 fL High 80-94 [facility] Comment on above: Performed By: #### L 300.4310, L3300.0700, L500.4050, L300.3900, L100.0500 #### [facility] [address] [place], [address] Platelet mean volume (Bld) [Entitic vol] 10.3 fL Normal 6.2-12.0 [facility] Comment on above: Performed By: #### L 300.4310, L3300.0700, L500.4050, L300.3900, L100.0500 #### [facility] [address] [place], [address] Platelets (Bld) [#/Vol] 191 10*3/uL Normal 150-450 [facility] Comment on above: Performed By: #### L 300.4310, L3300.0700, L500.4050, L300.3900, L100.0500 #### [facility] [address] [place], [address] RBC (Bld) [#/Vol] 4.80 10*6/uL Normal 4.6-6.2 [facility] Comment on above: Performed By: #### L 300.4310, L3300.0700, L500.4050, L300.3900, L100.0500 #### [facility] [address] [place], [address] RDW SD 47.6 fl High 35.1-43.9 [facility] Comment on above: Performed By: #### L 300.4310, L3300.0700, L500.4050, L300.3900, L100.0500 #### [facility] [address] [place], [address] WBC (Bld) [#/Vol] 8.6 10*3/uL Normal 4.4-11.0 [facility] Comment on above: Performed By: #### L 300.4310, L3300.0700, L500.4050, L300.3900, L100.0500 #### [facility] [address] [place], [address] Carbon dioxide, total [Moles /volume] in Central venous bloodOrdered By: Ayad Chu on 04-18-2025 CO2 [Moles/Vol] 20.8 mmol/L Low 21.0-32.0 [facility] Chloride assayOrdered By: Rosy Chu on 04-18-2025 Chloride [Moles/Vol] 102 mmol/L 98-108 [facility] Comprehensive Metabolic Prof ilon 04-18-2025 Albumin [Mass/Vol] 4.0 g/dL Normal 3.4-4.8 [facility] Comment on above: Performed By: #### L 300.4310, L3300.0700, L500.4050, L300.3900, L100.0500 #### [facility] [address] [place], [address] Albumin/Globulin [Mass ratio] 1.2 {ratio} Normal 0.9-2.4 [facility] Comment on above: Performed By: #### L 300.4310, L3300.0700, L500.4050, L300.3900, L100.0500 #### [facility] [address] [place], [address] ALK PHOS 71 U/L Normal 40-129 [facility] Comment on above: Performed By: #### L 300.4310, L3300.0700, L500.4050, L300.3900, L100.0500 #### [facility] [address] [place], [address] ALT [Catalytic activity/Vol] 44 U/L Normal <=46 [facility] Comment on above: Performed By: #### L 300.4310, L3300.0700, L500.4050, L300.3900, L100.0500 #### [facility] [address] [place], [address] AST [Catalytic activity/Vol] 67 U/L High <=37 [facility] Comment on above: Performed By: #### L 300.4310, L3300.0700, L500.4050, L300.3900, L100.0500 #### [facility] [address] [place], [address] Bilirubin [Mass/Vol] 1.04 mg/dL Normal 0.00-1.30 [facility] Comment on above: Performed By: #### L 300.4310, L3300.0700, L500.4050, L300.3900, L100.0500 #### [facility] [address] [place], [address] BUN/CRE 18.6 RATIO Normal 10-20 [facility] Comment on above: Performed By: #### L 300.4310, L3300.0700, L500.4050, L300.3900, L100.0500 #### [facility] [address] [place], [address] Calcium [Mass/Vol] 9.9 mg/dL Normal 7.6-11.0 [facility] Comment on above: Performed By: #### L 300.4310, L3300.0700, L500.4050, L300.3900, L100.0500 #### [facility] [address] [place], [address] Chloride [Moles/Vol] 102 mmol/L Normal 98-108 [facility] Comment on above: Performed By: #### L 300.4310, L3300.0700, L500.4050, L300.3900, L100.0500 #### [facility] [address] [place], [address] CO2 [Moles/Vol] 20.8 mmol/L Low 21.0-32.0 [facility] Comment on above: Performed By: #### L 300.4310, L3300.0700, L500.4050, L300.3900, L100.0500 #### [facility] [address] [place], [address] Creatinine [Mass/Vol] 0.83 mg/dL Normal 0.70-1.20 [facility] Comment on above: Performed By: #### L 300.4310, L3300.0700, L500.4050, L300.3900, L100.0500 #### [facility] [address] [place], [address] GAP 13 Normal 5-15 [facility] Comment on above: Performed By: #### L 300.4310, L3300.0700, L500.4050, L300.3900, L100.0500 #### [facility] [address] [place], [address] GFR/1.73 sq M.predicted among non-blacks MDRD (S/P/Bld) [Vol rate/Area] 92 mL/min/{1.73_m2} Normal >60 [facility] Comment on above: Result Comment: mL/m in/1.73m2 CKD-EPI Creatinine Equation (2020) Performed By: #### L 300.4310, L3300.0700, L500.4050, L300.3900, L100.0500 #### [facility] [address] [place], [address] Globulin (S) [Mass/Vol] 3.4 g/dL Normal 2.2-4.2 [facility] Comment on above: Performed By: #### L 300.4310, L3300.0700, L500.4050, L300.3900, L100.0500 #### [facility] [address] [place], [address] Glucose [Mass/Vol] 90 mg/dL Normal 70-99 [facility] Comment on above: Performed By: #### L 300.4310, L3300.0700, L500.4050, L300.3900, L100.0500 #### [facility] [address] [place], [address] Potassium [Moles/Vol] 3.9 mmol/L Normal 3.3-5.1 [facility] Comment on above: Performed By: #### L 300.4310, L3300.0700, L500.4050, L300.3900, L100.0500 #### [facility] [address] [place], [address] Sodium [Moles/Vol] 136 mmol/L Normal 133-145 [facility] Comment on above: Performed By: #### L 300.4310, L3300.0700, L500.4050, L300.3900, L100.0500 #### [facility] [address] [place], [address] T PROT 7.4 g/dL Normal 5.9-8.4 [facility] Comment on above: Performed By: #### L 300.4310, L3300.0700, L500.4050, L300.3900, L100.0500 #### [facility] [address] [place], [address] Urea nitrogen [Mass/Vol] 16 mg/dL Normal 4-19 [facility] Comment on above: Performed By: #### L 300.4310, L3300.0700, L500.4050, L300.3900, L100.0500 #### [facility] [address] [place], [address] Erythrocyte distribution wid th ratioOrdered By: Ayad Chu on 04-18-2025 Erythrocyte distribution width (RBC) [Ratio] 13.2 % 11.6-14.6 [facility] Erythrocyte distribution wid th standard deviationOrdered By: Ayad Chu on 04-18-2025 Erythrocyte distribution width (RBC) [Ratio] 47.6 fl High 35.1-43.9 [facility] Glomerular filtration rate ( GFR) estimation/1.73 sq m using serum, plasma, or whole bOrdered By: Ayad Chu on 04-18-2025 GFR/1.73 sq M.predicted among non-blacks MDRD (S/P/Bld) [Vol rate/Area] 92 mL/min/{1.73_m2} >60 [facility] Comment on above: mL/min/1.73m2 CKD-EP I Creatinine Equation (2020) Hematocrit Auto (Bld) [Volum e fraction]Ordered By: Ayad Chu on 04-18-2025 Hematocrit (Bld) [Volume fraction] 46.6 % 40-54 [facility] Hemoglobin measurementOrdere d By: Ayad Chu on 04-18-2025 Hemoglobin (Bld) [Mass/Vol] 16.0 g/dL 13.0-16.5 [facility] International normalized rat io (INR) calculationOrdered By: Ayad Chu on 04-18-2025 INR Coag (Bld) [Relative time] 1.0 {INR} [facility] - Chemistry and C hemistry - challengeOrdered By: Ayad Chu on 04-18-2025 AST [Catalytic activity/Vol] 67 U/L High <38 [facility] MCV (mean corpuscular volume ) determinationOrdered By: Ayad Chu on 04-18-2025 MCV (RBC) [Entitic vol] 97.1 fL High 80-94 [facility] Mean corpuscular hemoglobin (MCH) determinationOrdered By: Ayad Chu on 04-18-2025 MCH (RBC) [Entitic mass] 33.3 pg High 27.0-32.0 [facility] Mean corpuscular hemoglobin concentration (MCHC) determinationOrdered By: Ayad Chu on 04-18-2025 MCHC (RBC) [Mass/Vol] 34.3 g/dL 32-36 [facility] Mean platelet volume determi nationOrdered By: Ayad Chu on 04-18-2025 Platelet mean volume (Bld) [Entitic vol] 10.3 fL 6.2-12.0 [facility] Partial Thromboplast Timeon 04-18-2025 aPTT Coag (Bld) [Time] 27.8 s Normal 24.1-36.2 [facility] Comment on above: Performed By: #### L 300.4310, L3300.0700, L500.4050, L300.3900, L100.0500 #### [facility] [address] [place], [address] Platelet countOrdered By: Rosy Chu on 04-18-2025 Platelets (Bld) [#/Vol] 191 10*3/uL 150-450 [facility] Potassium measurement (mass/ volume)Ordered By: Ayad Chu on 04-18-2025 Potassium (Unsp spec) [Mass/Vol] 3.9 mmol/L 3.3-5.1 [facility] Prothrombin Time w/INRon INR Coag (PPP) [Relative time] 1.0 {INR} Normal [facility] Comment on above: Performed By: #### L 300.4310, L3300.0700, L500.4050, L300.3900, L100.0500 #### [facility] [address] [place], [place], [id number] [phone] PT Coag (PPP) [Time] 13.7 s Normal 11.7-14.9 [facility] Comment on above: Performed By: #### L 300.4310, L3300.0700, L500.4050, L300.3900, L100.0500 #### [facility] [address] [place], [place], [id number] [phone] Prothrombin timeOrdered By: Ayad Chu on 04-18-2025 PT Coag (PPP) [Time] 13.7 s 11.7-14.9 [facility] RBC Auto (Bld) [#/Vol]Ordere d By: Ayad Chu on 04-18-2025 RBC (Bld) [#/Vol] 4.80 10*6/uL 4.6-6.2 [facility] Serum creatinine measurement (mass/volume)Ordered By: Ayad Chu on 04-18-2025 Creatinine [Mass/Vol] 0.83 mg/dL 0.70-1.20 [facility] Serum globulin measurementOr dered By: Ayad Chu on 04-18-2025 Globulin (S) [Mass/Vol] 3.4 g/dL 2.2-4.2 [facility] Serum glucose measurement (m ass/volume)Ordered By: Ayad Chu on 04-18-2025 Glucose [Mass/Vol] 90 mg/dL 70-99 [facility] Serum or plasma alanine diaz otransferase (ALT) measurementOrdered By: Ayad Chu on 04-18-2025 ALT [Catalytic activity/Vol] 44 U/L <47 [facility] Serum or plasma albumin joanie urement (mass/volume)Ordered By: Ayad Chu on 04-18-2025 Albumin [Mass/Vol] 4.0 g/dL 3.4-4.8 [facility] Serum or plasma albumin/glob ulin mass ratioOrdered By: Ayad Chu on 04-18-2025 Albumin/Globulin [Mass ratio] 1.2 {ratio} 0.9-2.4 [facility] Serum or plasma alkaline ellen sphatase measurementOrdered By: Ayad Chu on 04-18-2025 ALP [Catalytic activity/Vol] 71 U/L 40-129 [facility] Serum or plasma calcium joanie urement (mass/volume)Ordered By: Ayad Chu on 04-18-2025 Calcium [Mass/Vol] 9.9 mg/dL 7.6-11.0 [facility] Serum or plasma urea nitroge n measurement (mass/volume)Ordered By: Ayad Chu on 04-18-2025 Urea nitrogen [Mass/Vol] 16 mg/dL 4-19 [facility] Sodium levelOrdered By: Gerry Chu on 04-18-2025 Sodium [Moles/Vol] 136 mmol/L 133-145 [facility] Total proteinOrdered By: Darrell Chu on 04-18-2025 Protein [Mass/Vol] 7.4 g/dL 5.9-8.4 [facility] White blood cell (WBC) count Ordered By: Ayad Chu on 04-18-2025 WBC (Bld) [#/Vol] 8.6 10*3/uL 4.4-11.0 [facility] L501.5101on 04-14-2025 GGTP 190 IU/L Abnormal 0-65 [facility] Comment on above: Order Comment: Order Date: 04/12/25Order Info: 2324-2 - GGTP Result Comment: Perf ormed at: - [facility] [address] [id number] Commercial Representative: Ayad Luis PhD, Phone: [phone] Performed By: #### L 500.4050, L300.4310, L3300.0700, L300.3900 #### [facility] [address] [place] [address], [id number] Absolute lymphocyte countOrd ered By: Amber Munoz on 04-13-2025 Lymphocytes Auto (Unsp spec) [#/Vol] 2.81 10*3/uL 0.83-4.51 [facility] Absolute neutrophil countOrd ered By: Amber Munoz on 04-13-2025 Neutrophils (Bld) [#/Vol] 3.1 10*3/uL 2.0-7.7 [facility] Anion gap in Serum or Plasma Ordered By: Amber Munoz on 04-13-2025 Anion gap [Moles/Vol] 11 mmol/L 5- [facility] Automated lymphocyte count a s percentage of total leukocytesOrdered By: Amber Munoz on 04-13-2025 Lymphocytes/100 WBC Auto (Unsp spec) 40.8 % [facility] BUN/creatinine ratioOrdered By: Amber Munoz on 04-13-2025 Urea nitrogen/Creatinine [Mass ratio] 21.9 mg/mg High 10- [facility] Basophil percentageOrdered B y: Amber Munoz on 04-13-2025 Basophils/100 WBC (Bld) 0.9 % 0-1 [facility] Bilirubin, totalOrdered By: Amber Munoz on 04-13-2025 Bilirubin [Mass/Vol] 1.22 mg/dL 0.00-1.30 [facility] CBC W/Diff, Automatedon 03-18 Absolute Lymph 2.81 X10 3/uL Normal 0.83-4.51 [facility] Comment on above: Order Comment: Order Date: 04/12/25 Order Info: 0184-1 - CBCD Performed By: #### L 500.4050, L300.3900, L501.9520, L501.15292, L501.5101, L100.0100, L500.4100, L506.0400 #### [facility] [address] [place], [address] Absolute Neut 3.1 X10 3/uL Normal 2.0-7.7 [facility] Comment on above: Order Comment: Order Date: 04/12/25 Order Info: 0184-1 - CBCD Performed By: #### L 500.4050, L300.3900, L501.9520, L501.01386, L501.5101, L100.0100, L500.4100, L506.0400 #### [facility] [address] [place], [address] Basophils/100 WBC (Bld) 0.9 % Normal 0-1 [facility] Comment on above: Order Comment: Order Date: 04/12/25 Order Info: 0184- - CBCD Performed By: #### L 500.4050, L300.3900, L501.9520, L501.11753, L501.5101, L100.0100, L500.4100, L506.0400 #### [facility] [address] [place], [address] Eosinophils/100 WBC (Bld) 2.8 % Normal 0-5 [facility] Comment on above: Order Comment: Order Date: 04/12/25 Order Info: 0184- - CBCD Performed By: #### L 500.4050, L300.3900, L501.9520, L501.58293, L501.5101, L100.0100, L500.4100, L506.0400 #### [facility] [address] [place], [address] Erythrocyte distribution width (RBC) [Ratio] 13.2 % Normal 11.6-14.6 [facility] Comment on above: Order Comment: Order Date: 04/12/25 Order Info: 0184- - CBCD Performed By: #### L 500.4050, L300.3900, L501.9520, L501.08416, L501.5101, L100.0100, L500.4100, L506.0400 #### [facility] [address] [place], [address] Hematocrit (Bld) [Volume fraction] 45.8 % Normal 40-54 [facility] Comment on above: Order Comment: Order Date: 04/12/25 Order Info: 0184-1 - CBCD Performed By: #### L 500.4050, L300.3900, L501.9520, L501.06063, L501.5101, L100.0100, L500.4100, L506.0400 #### [facility] [address] [place], [address] Hemoglobin (Bld) [Mass/Vol] 15.9 g/dL Normal 13.0-16.5 [facility] Comment on above: Order Comment: Order Date: 04/12/25 Order Info: 0184-1 - CBCD Performed By: #### L 500.4050, L300.3900, L501.9520, L501.68259, L501.5101, L100.0100, L500.4100, L506.0400 #### [facility] [address] [place], [address] IG% 0.100 Normal 0.0-0.9 [facility] Comment on above: Order Comment: Order Date: 04/12/25 Order Info: 0184-1 - CBCD Result Comment: IG% - Immature Granulocytes (promyelocytes, myelocytes and metamyelocytes) > 1% indicates that a LEFT SHIFT is Present. Performed By: #### L 500.4050, L300.3900, L501.9520, L501.84752, L501.5101, L100.0100, L500.4100, L506.0400 #### [facility] [address] [place], [address] Lymphocytes/100 WBC (Bld) 40.8 % Normal 19-41 [facility] Comment on above: Order Comment: Order Date: 04/12/25 Order Info: 0184-1 - CBCD Performed By: #### L 500.4050, L300.3900, L501.9520, L501.50708, L501.5101, L100.0100, L500.4100, L506.0400 #### [facility] [address] [place], [address] MCH (RBC) [Entitic mass] 33.5 pg High 27.0-32.0 [facility] Comment on above: Order Comment: Order Date: 04/12/25 Order Info: 0184-1 - CBCD Performed By: #### L 500.4050, L300.3900, L501.9520, L501.69685, L501.5101, L100.0100, L500.4100, L506.0400 #### [facility] [address] [place], [address] MCHC (RBC) [Mass/Vol] 34.7 g/dL Normal 32-36 [facility] Comment on above: Order Comment: Order Date: 04/12/25 Order Info: 0184-1 - CBCD Performed By: #### L 500.4050, L300.3900, L501.9520, L501.73686, L501.5101, L100.0100, L500.4100, L506.0400 #### [facility] [address] [place], [address] MCV (RBC) [Entitic vol] 96.6 fL High 80-94 [facility] Comment on above: Order Comment: Order Date: 04/12/25 Order Info: 0184-1 - CBCD Performed By: #### L 500.4050, L300.3900, L501.9520, L501.86657, L501.5101, L100.0100, L500.4100, L506.0400 #### [facility] [address] [place], [address] Monocytes/100 WBC (Bld) 9.9 % Normal 0-10 [facility] Comment on above: Order Comment: Order Date: 04/12/25 Order Info: 0184-1 - CBCD Performed By: #### L 500.4050, L300.3900, L501.9520, L501.30065, L501.5101, L100.0100, L500.4100, L506.0400 #### [facility] [address] [place], [address] Neutrophils/100 WBC (Bld) 45.5 % Low 47-70 [facility] Comment on above: Order Comment: Order Date: 04/12/25 Order Info: 0184-1 - CBCD Performed By: #### L 500.4050, L300.3900, L501.9520, L501.22587, L501.5101, L100.0100, L500.4100, L506.0400 #### [facility] [address] [place], [address] Nucleated RBC (Bld) [#/Vol] 0 10*3/uL Normal 0-5 [facility] Comment on above: Order Comment: Order Date: 04/12/25 Order Info: 0184-1 - CBCD Performed By: #### L 500.4050, L300.3900, L501.9520, L501.15649, L501.5101, L100.0100, L500.4100, L506.0400 #### [facility] [address] [place], [address] Platelet mean volume (Bld) [Entitic vol] 10.2 fL Normal 6.2-12.0 [facility] Comment on above: Order Comment: Order Date: 04/12/25 Order Info: 0184-1 - CBCD Performed By: #### L 500.4050, L300.3900, L501.9520, L501.96747, L501.5101, L100.0100, L500.4100, L506.0400 #### [facility] [address] [place], [address] Platelets (Bld) [#/Vol] 157 10*3/uL Normal 150-450 [facility] Comment on above: Order Comment: Order Date: 04/12/25 Order Info: 0184-1 - CBCD Performed By: #### L 500.4050, L300.3900, L501.9520, L501.19215, L501.5101, L100.0100, L500.4100, L506.0400 #### [facility] [address] [place], [address] RBC (Bld) [#/Vol] 4.74 10*6/uL Normal 4.6-6.2 [facility] Comment on above: Order Comment: Order Date: 04/12/25 Order Info: 0184-1 - CBCD Performed By: #### L 500.4050, L300.3900, L501.9520, L501.77473, L501.5101, L100.0100, L500.4100, L506.0400 #### [facility] [address] [place], [address] RDW SD 47.6 fl High 35.1-43.9 [facility] Comment on above: Order Comment: Order Date: 04/12/25 Order Info: 0184-1 - CBCD Performed By: #### L 500.4050, L300.3900, L501.9520, L501.80719, L501.5101, L100.0100, L500.4100, L506.0400 #### [facility] [address] [place], [address] WBC (Bld) [#/Vol] 6.9 10*3/uL Normal 4.4-11.0 [facility] Comment on above: Order Comment: Order Date: 04/12/25 Order Info: 0184-1 - CBCD Performed By: #### L 500.4050, L300.3900, L501.9520, L501.40098, L501.5101, L100.0100, L500.4100, L506.0400 #### [facility] [address] [place], [address] Calculated very low density lipoprotein (VLDL) cholesterol measurementOrdered By: Amber Munoz on 04-13-2025 Calculated very low density lipoprotein (VLDL) cholesterol measurement 31 mg/dL 5-40 [facility] Carbon dioxide, total [Moles /volume] in Central venous bloodOrdered By: Amber Munoz on 04-13-2025 CO2 [Moles/Vol] 21.2 mmol/L 21.0-32.0 [facility] Chloride assayOrdered By: Ashvin Munoz on 04-13-2025 Chloride [Moles/Vol] 106 mmol/L 98-108 [facility] Comprehensive Metabolic Prof ilon 04-13-2025 Albumin [Mass/Vol] 3.7 g/dL Normal 3.4-4.8 [facility] Comment on above: Order Comment: Order Date: 04/12/25Order Info: 0786-1 - CMPOrder Info: [id number] - LIPIDOrder Info: [id number] - Z7KTelkj Info: [id number] - TSHOrder Info: 3024-7 - T4F Performed By: #### L 500.4050, L300.4310, L3300.0700, L300.3900 #### [facility] [address] [place], [address] Albumin/Globulin [Mass ratio] 1.2 {ratio} Normal 0.9-2.4 [facility] Comment on above: Order Comment: Order Date: 04/12/25Order Info: [id number] - CMPOrder Info: [id number] - LIPIDOrder Info: [id number] - U0UNyngs Info: [id number] - TSHOrder Info: 3024-7 - T4F Performed By: #### L 500.4050, L300.4310, L3300.0700, L300.3900 #### [facility] [address] [place], [address] ALK PHOS 69 U/L Normal 40-129 [facility] Comment on above: Order Comment: Order Date: 04/12/25Order Info: 86-1 - CMPOrder Info: [id number] - LIPIDOrder Info: [id number] - T4UHanrz Info: [id number] - TSHOrder Info: 3024-7 - T4F Performed By: #### L 500.4050, L300.4310, L3300.0700, L300.3900 #### [facility] [address] [place], [address] ALT [Catalytic activity/Vol] 37 U/L Normal <=46 [facility] Comment on above: Order Comment: Order Date: 04/12/25Order Info: 86-1 - CMPOrder Info: [id number] - LIPIDOrder Info: [id number] - P0LYoaip Info: [id number] - TSHOrder Info: 3024-7 - T4F Performed By: #### L 500.4050, L300.4310, L3300.0700, L300.3900 #### [facility] [address] [place], [address] AST [Catalytic activity/Vol] 55 U/L High <=37 [facility] Comment on above: Order Comment: Order Date: 04/12/25Order Info: 86-1 - CMPOrder Info: [id number] - LIPIDOrder Info: 3051-0 - C9GPnerc Info: [id number] - TSHOrder Info: 3024-7 - T4F Performed By: #### L 500.4050, L300.4310, L3300.0700, L300.3900 #### [facility] [address] [place], [address] Bilirubin [Mass/Vol] 1.22 mg/dL Normal 0.00-1.30 [facility] Comment on above: Order Comment: Order Date: 04/12/25Order Info: 86-1 - CMPOrder Info: [id number] - LIPIDOrder Info: 3051-0 - B4EZdjwx Info: [id number] - TSHOrder Info: 3024-7 - T4F Performed By: #### L 500.4050, L300.4310, L3300.0700, L300.3900 #### [facility] [address] [place], [address] BUN/CRE 21.9 RATIO High 10-20 [facility] Comment on above: Order Comment: Order Date: 04/12/25Order Info: 0786-1 - CMPOrder Info: [id number] - LIPIDOrder Info: 3051-0 - I0SThiqa Info: [id number] - TSHOrder Info: 3024-7 - T4F Performed By: #### L 500.4050, L300.4310, L3300.0700, L300.3900 #### [facility] [address] [place], [address] Calcium [Mass/Vol] 9.0 mg/dL Normal 7.6-11.0 [facility] Comment on above: Order Comment: Order Date: 04/12/25Order Info: 86-1 - CMPOrder Info: [id number] - LIPIDOrder Info: [id number] - O0GDdnds Info: [id number] - TSHOrder Info: 3024-7 - T4F Performed By: #### L 500.4050, L300.4310, L3300.0700, L300.3900 #### [facility] [address] [place], [address] Chloride [Moles/Vol] 106 mmol/L Normal 98-108 [facility] Comment on above: Order Comment: Order Date: 04/12/25Order Info: 0786-1 - CMPOrder Info: [id number] - LIPIDOrder Info: 3051-0 - T4DUvxjr Info: [id number] - TSHOrder Info: 3024-7 - T4F Performed By: #### L 500.4050, L300.4310, L3300.0700, L300.3900 #### [facility] [address] [place], [address] CO2 [Moles/Vol] 21.2 mmol/L Normal 21.0-32.0 [facility] Comment on above: Order Comment: Order Date: 04/12/25Order Info: 86-1 - CMPOrder Info: [id number] - LIPIDOrder Info: 3051-0 - Q4XBnvsq Info: [id number] - TSHOrder Info: 3024-7 - T4F Performed By: #### L 500.4050, L300.4310, L3300.0700, L300.3900 #### [facility] [address] [place], [address] Creatinine [Mass/Vol] 0.77 mg/dL Normal 0.70-1.20 [facility] Comment on above: Order Comment: Order Date: 04/12/25Order Info: 86-1 - CMPOrder Info: [id number] - LIPIDOrder Info: [id number] - T6MWlyno Info: [id number] - TSHOrder Info: 3024-7 - T4F Performed By: #### L 500.4050, L300.4310, L3300.0700, L300.3900 #### [facility] [address] [place], [address] GAP 11 Normal 5-15 [facility] Comment on above: Order Comment: Order Date: 04/12/25Order Info: 86-1 - CMPOrder Info: [id number] - LIPIDOrder Info: 3051-0 - O1BDibvr Info: 3016-3 - TSHOrder Info: 3024-7 - T4F Performed By: #### L 500.4050, L300.4310, L3300.0700, L300.3900 #### [facility] [address] [place], [address] GFR/1.73 sq M.predicted among non-blacks MDRD (S/P/Bld) [Vol rate/Area] 95 mL/min/{1.73_m2} Normal >60 [facility] Comment on above: Order Comment: Order Date: 04/12/25Order Info: 86-1 - CMPOrder Info: [id number] - LIPIDOrder Info: 3051-0 - L1VYtvnv Info: 3016-3 - TSHOrder Info: 3024-7 - T4F Result Comment: mL/m in/1.73m2 CKD-EPI Creatinine Equation (2020) Performed By: #### L 500.4050, L300.4310, L3300.0700, L300.3900 #### [facility] [address] [place], [address] Globulin (S) [Mass/Vol] 3.1 g/dL Normal 2.2-4.2 [facility] Comment on above: Order Comment: Order Date: 04/12/25Order Info: 86-1 - CMPOrder Info: [id number] - LIPIDOrder Info: 3051-0 - M6LXfxne Info: [id number] - TSHOrder Info: 3024-7 - T4F Performed By: #### L 500.4050, L300.4310, L3300.0700, L300.3900 #### [facility] [address] [place], [address] Glucose [Mass/Vol] 124 mg/dL High 70-99 [facility] Comment on above: Order Comment: Order Date: 04/12/25Order Info: 86-1 - CMPOrder Info: [id number] - LIPIDOrder Info: 3051-0 - H3PGeqyn Info: [id number] - TSHOrder Info: 3024-7 - T4F Performed By: #### L 500.4050, L300.4310, L3300.0700, L300.3900 #### [facility] [address] [place], [address] Potassium [Moles/Vol] 4.0 mmol/L Normal 3.3-5.1 [facility] Comment on above: Order Comment: Order Date: 04/12/25Order Info: 86-1 - CMPOrder Info: [id number] - LIPIDOrder Info: [id number] - R4VEswkw Info: [id number] - TSHOrder Info: 3024-7 - T4F Performed By: #### L 500.4050, L300.4310, L3300.0700, L300.3900 #### [facility] [address] [place], [address] Sodium [Moles/Vol] 137 mmol/L Normal 133-145 [facility] Comment on above: Order Comment: Order Date: 04/12/25Order Info: 0786-1 - CMPOrder Info: [id number] - LIPIDOrder Info: 3051-0 - N3KBackx Info: [id number] - TSHOrder Info: 3024-7 - T4F Performed By: #### L 500.4050, L300.4310, L3300.0700, L300.3900 #### [facility] [address] [place], [address] T PROT 6.8 g/dL Normal 5.9-8.4 [facility] Comment on above: Order Comment: Order Date: 04/12/25Order Info: 07-1 - CMPOrder Info: [id number] - LIPIDOrder Info: [id number] - R6GJaadw Info: [id number] - TSHOrder Info: 3024-7 - T4F Performed By: #### L 500.4050, L300.4310, L3300.0700, L300.3900 #### [facility] [address] [place], [address] Urea nitrogen [Mass/Vol] 17 mg/dL Normal 4-19 [facility] Comment on above: Order Comment: Order Date: 04/12/25Order Info: 0786-1 - CMPOrder Info: [id number] - LIPIDOrder Info: [id number] - E6DSkdqz Info: [id number] - TSHOrder Info: 3024-7 - T4F Performed By: #### L 500.4050, L300.4310, L3300.0700, L300.3900 #### [facility] [address] [place], [address] Eosinophil percentageOrdered By: Amber Munoz on 04-13-2025 Eosinophils/100 WBC (Bld) 2.8 % 0-5 [facility] Erythrocyte distribution wid th ratioOrdered By: Amber Munoz on 04-13-2025 Erythrocyte distribution width (RBC) [Ratio] 13.2 % 11.6-14.6 [facility] Erythrocyte distribution wid th standard deviationOrdered By: Amber Munoz on 04-13-2025 Erythrocyte distribution width (RBC) [Ratio] 47.6 fl High 35.1-43.9 [facility] Free T3on 04-13-2025 Free T3 [Mass/Vol] 2.8 pg/mL Normal 2.18-3.98 [facility] Comment on above: Order Comment: Order Date: 04/12/25Order Info: 0786-1 - CMPOrder Info: [id number] - LIPIDOrder Info: [id number] - X7RCqkzo Info: [id number] - TSHOrder Info: 3024-7 - T4F Performed By: #### L 500.4050, L300.4310, L3300.0700, L300.3900 #### [facility] [address] [place] [address], [address] Free D8Ialcrdu By: Amber montgomery on 04-13-2025 Free T3 [Mass/Vol] 2.8 pg/mL 2.18-3.98 [facility] Gamma glutamyl transferase ( GGT) measurementOrdered By: Amber Munoz on 04-13-2025 Amylase [Catalytic activity/Vol] 190 U/L High 0-65 [facility] Comment on above: Performed at: [place] [id number] Director: Ayad Luis PhD, Phone: [phone] Glomerular filtration rate ( GFR) estimation/1.73 sq m using serum, plasma, or whole bOrdered By: Amber Munoz on 04-13-2025 GFR/1.73 sq M.predicted among non-blacks MDRD (S/P/Bld) [Vol rate/Area] 95 mL/min/{1.73_m2} >60 [facility] Comment on above: mL/min/1.73m2 CKD-EP I Creatinine Equation (2020) Hematocrit Auto (Bld) [Volum e fraction]Ordered By: Amber Munoz on 05-28-2025 Hematocrit (Bld) [Volume fraction] 45.8 % 40-54 [facility] Hemoglobin measurementOrdere d By: Amber Munoz on 04-13-2025 Hemoglobin (Bld) [Mass/Vol] 15.9 g/dL 13.0-16.5 [facility] Immature granulocytes/100 WB C Auto (Bld)Ordered By: Amber Munoz on 04-13-2025 Immature granulocytes/100 WBC (Bld) 0.100 % 0.0-0.9 [facility] Comment on above: IG% - Immature Granu locytes (promyelocytes, myelocytes and metamyelocytes) > 1% indicates that a LEFT SHIFT is Present. International normalized rat io (INR) calculationOrdered By: Amber Munoz on 04-13-2025 INR Coag (Bld) [Relative time] 1.1 {INR} [facility] LDL calc ser/plasOrdered By: Amber Munoz on 04-13-2025 Cholesterol in LDL [Mass/Vol] 105 mg/dL [facility] Comment on above: Usnldtwipr=979-331 m g/dL & Higher Xjhn=731 mg/dL or greater Laboratory - Chemistry and C hemistry - challengeOrdered By: Amber Munoz on 04-13-2025 AST [Catalytic activity/Vol] 55 U/L High <38 [facility] Lipid Profileon 04-13-2025 CHOL:HDL 4.84 Normal [facility] Comment on above: Order Comment: Order Date: 04/12/25Order Info: 0786-1 - CMPOrder Info: [id number] - LIPIDOrder Info: [id number] - R4YFncqs Info: [id number] - TSHOrder Info: 3024-7 - T4F Performed By: #### L 500.4050, L300.4310, L3300.0700, L300.3900 #### [facility] [address] [place], [place], [address] Cholesterol [Mass/Vol] 171 mg/dL Normal <=200 [facility] Comment on above: Order Comment: Order Date: 04/12/25Order Info: 0786-1 - CMPOrder Info: [id number] - LIPIDOrder Info: [id number] - X5FMfcuq Info: [id number] - TSHOrder Info: 3024-05 T4 Result Comment: Chol esterol level, Desirable <200 mg/dL Borderline high cholesterol 200-239 mg/dL High cholesterol >=240 mg/dL Recommendations of the NCEP Adult Treatment Panel for the following risk-cutoff thresholds for the [place] population. Performed By: #### L 500.4050, L300.4310, L3300.0700, L300.3900 #### [facility] [address] [place], [address] Cholesterol in HDL [Mass/Vol] 35 mg/dL Low [facility] Comment on above: Order Comment: Order Date: 04/12/25Order Info: 0786-1 - CMPOrder Info: [id number] - LIPIDOrder Info: 0 - E0BXgjmb Info: [id number] - TSHOrder Info: 3024-05 T4 Result Comment: Radha onal Cholesterol Education Program (NCEP) guidelines: <40 mg/dL: Low HDL-cholesterol (major risk factor for CHD) >= 60 mg/dL: High HDL-cholesterol (negative risk factor for CHD) HDL-cholesterol is affected by a number of factors, e.g. smoking, exercise, hormones, sex and age. Performed By: #### L 500.4050, L300.4310, L3300.0700, L300.3900 #### [facility] [address] [place], [address] Cholesterol in LDL [Mass/Vol] 105 mg/dL Normal [facility] Comment on above: Order Comment: Order Date: 04/12/25Order Info: 071 - CMPOrder Info: [id number] - LIPIDOrder Info: [id number] - R2DDjrmf Info: 3 - TSHOrder Info: 3024-05 T4 Result Comment: Bord wpnsdt=946-218 mg/dL Higher Dqcz=466 mg/dL or greater Performed By: #### L 500.4050, L300.4310, L3300.0700, L300.3900 #### [facility] [address] [place], [address] Cholesterol in VLDL [Mass/Vol] 31 mg/dL Normal 5-40 [facility] Comment on above: Order Comment: Order Date: 04/12/25Order Info: 0786-1 - CMPOrder Info: [id number] - LIPIDOrder Info: [id number] - X1BHzhkn Info: [id number] - TSHOrder Info: 3024-7 - T4F Performed By: #### L 500.4050, L300.4310, L3300.0700, L300.3900 #### [facility] [address] [place], [place], [address] Triglyceride [Mass/Vol] 154 mg/dL Normal [facility] Comment on above: Order Comment: Order Date: 04/12/25Order Info: [id number] - CMPOrder Info: [id number] - LIPIDOrder Info: [id number] - [id number] Info: [id number] - TSHOrder Info: [id number] - T4F Result Comment: The drugs N-Acetylcysteine and Metamizole may falsely depress this assay. Normal range: <150 mg/dL Borderline High: 150-199 mg/dL High: 200-499 mg/dL Very High: >500 mg/dL Performed By: #### L 500.4050, L300.4310, L3300.0700, L300.3900 #### [facility] [address] [place], [place], [id number] MCV (mean corpuscular volume ) determinationOrdered By: Amber Munoz on 04-13-2025 MCV (RBC) [Entitic vol] 96.6 fL High 80-94 [facility] Mean corpuscular hemoglobin (MCH) determinationOrdered By: Amber Munoz on 04-13-2025 MCH (RBC) [Entitic mass] 33.5 pg High 27.0-32.0 [facility] Mean corpuscular hemoglobin concentration (MCHC) determinationOrdered By: Amber Munoz on 04-13-2025 MCHC (RBC) [Mass/Vol] 34.7 g/dL 32-36 [facility] Mean platelet volume determi nationOrdered By: Amber Munoz on 04-13-2025 Platelet mean volume (Bld) [Entitic vol] 10.2 fL 6.2-12.0 [facility] Microalb:Creat Ratio,Random URon 04-13-2025 Creatinine [Mass/Vol] 148.00 mg/dL Normal 39.00- 259.0 0 [facility] Comment on above: Order Comment: Order Date: 04/12/25Order Info: [id number] - MIALB Performed By: #### L 500.4050, L300.4310, L3300.0700, L300.3900 #### [facility] [address] [place], [address] MALB:CREAT UNABLE TO CALCULATE Normal [facility] Comment on above: Order Comment: Order Date: 04/12/25Order Info: [id number] - MIALB Performed By: #### L 500.4050, L300.4310, L3300.0700, L300.3900 #### [facility] [address] [place], [address] MICROALBUMIN,UR < 12.0 Normal NO RANGE EST. [facility] Comment on above: Order Comment: Order Date: 04/12/25Order Info: [id number] - MIALB Performed By: #### L 500.4050, L300.4310, L3300.0700, L300.3900 #### [facility] [address] [place], [address] Microalbumin/creat ratio urO rdered By: Amber Munoz on 04-13-2025 Urine microalbumin/creatinin e ratio measurement UNABLE TO CALCULATE mg/g CRE [facility] Monocyte percentageOrdered B y: Amber Munoz on 04-13-2025 Monocytes/100 WBC (Bld) 9.9 % 0-10 [facility] Neutrophil percentageOrdered By: Amber Munoz on 04-13-2025 Neutrophils/100 WBC (Bld) 45.5 % Low 47-70 [facility] Nucleated red blood cell per centageOrdered By: Amber Munoz on 05-28-2025 Nucleated RBC/100 WBC (Bld) [Ratio] 0 % 0-5 [facility] Platelet countOrdered By: Ashvin Munoz on 04-13-2025 Platelets (Bld) [#/Vol] 157 10*3/uL 150-450 [facility] Potassium measurement (mass/ volume)Ordered By: Amber Munoz on 04-13-2025 Potassium (Unsp spec) [Mass/Vol] 4.0 mmol/L 3.3-5.1 [facility] Prothrombin Time w/INRon INR Coag (PPP) [Relative time] 1.1 {INR} Normal [facility] Comment on above: Order Comment: Order Date: 04/12/25Order Info: [id number] - PT Performed By: #### L 500.4050, L300.4310, L3300.0700, L300.3900 #### [facility] [address] [place], [place], [id number] (564) PT Coag (PPP) [Time] 14.4 s Normal 11.7-14.9 [facility] Comment on above: Order Comment: Order Date: 04/12/25Order Info: [id number] - PT Performed By: #### L 500.4050, L300.4310, L3300.0700, L300.3900 #### [facility] [address] [place], [address] Prothrombin timeOrdered By: Amber Munoz on 04-13-2025 PT Coag (PPP) [Time] 14.4 s 11.7-14.9 [facility] RBC Auto (Bld) [#/Vol]Ordere d By: Amber Munoz on 04-13-2025 RBC (Bld) [#/Vol] 4.74 10*6/uL 4.6-6.2 [facility] Random urine creatinine joanie urement (mass/volume)Ordered By: Amber Munoz on 04-13-2025 Creatinine Unsp time (U) [Mass/Vol] 148.00 mg/dL 39.00-259.0 0 [facility] Screening total cholesterol/ high density lipoprotein (HDL) cholesterol ratioOrdered By: Amber Munoz on 04-13-2025 Cholesterol.total/Chol esterol in HDL [Mass ratio] 4.84 {ratio} [facility] Serum creatinine measurement (mass/volume)Ordered By: Amber Munoz on 04-13-2025 Creatinine [Mass/Vol] 0.77 mg/dL 0.70-1.20 [facility] Serum globulin measurementOr dered By: Amber Munoz on 04-13-2025 Globulin (S) [Mass/Vol] 3.1 g/dL 2.2-4.2 [facility] Serum glucose measurement (m ass/volume)Ordered By: Amber Munoz on 04-13-2025 Glucose [Mass/Vol] 124 mg/dL High 70-99 [facility] Serum or plasma alanine diaz otransferase (ALT) measurementOrdered By: Amber Munoz on 04-13-2025 ALT [Catalytic activity/Vol] 37 U/L <47 [facility] Serum or plasma albumin joanie urement (mass/volume)Ordered By: Amber Munoz on 04-13-2025 Albumin [Mass/Vol] 3.7 g/dL 3.4-4.8 [facility] Serum or plasma albumin/glob ulin mass ratioOrdered By: Amber Munoz on 04-13-2025 Albumin/Globulin [Mass ratio] 1.2 {ratio} 0.9-2.4 [facility] Serum or plasma alkaline ellen sphatase measurementOrdered By: Amber Munoz on 04-13-2025 ALP [Catalytic activity/Vol] 69 U/L 40-129 [facility] Serum or plasma calcium joanie urement (mass/volume)Ordered By: Amber Munoz on 04-13-2025 Calcium [Mass/Vol] 9.0 mg/dL 7.6-11.0 [facility] Serum or plasma cholesterol in HDL measurement (mass/volume)Ordered By: Amber Munoz on 04-13-2025 Cholesterol in HDL [Mass/Vol] 35 mg/dL Low >40 [facility] Comment on above: National Cholesterol Education Program (NCEP) guidelines:<40 mg/dL: Low HDL-cholesterol (major risk factor for CHD)>= 60 mg/dL: High HDL-cholesterol (negative risk factor for CHD)HDL-cholesterol is affected by a number of factors, e.g. smoking, exercise, hormones, sex and age. Serum or plasma cholesterol measurement (mass/volume)Ordered By: Amebr Munoz on 04-13-2025 Cholesterol [Mass/Vol] 171 mg/dL <201 [facility] Comment on above: Cholesterol level, D esirable <200 mg/dLBorderline high cholesterol 200-239 mg/dLHigh cholesterol >=240 mg/dLRecommendations of the NCEP Adult Treatment Panel for the following risk-cutoff thresholds for the [place] Citizen [place] population. Serum or plasma urea nitroge n measurement (mass/volume)Ordered By: Amber Munoz on 04-13-2025 Urea nitrogen [Mass/Vol] 17 mg/dL 4-19 [facility] Sodium levelOrdered By: Amber Munoz on 04-13-2025 Sodium [Moles/Vol] 137 mmol/L 133-145 [facility] T4 Free Directon 04-13-2025 T4 FREE DIRECT 1.30 ng/dL Normal 0.76-1.46 [facility] Comment on above: Order Comment: Order Date: 04/12/25Order Info: [id number] - CMPOrder Info: [id number] - LIPIDOrder Info: [id number] - [id number] Info: [id number] - TSHOrder Info: [id number] - T4F Performed By: #### L 500.4050, L300.4310, L3300.0700, L300.3900 #### [facility] [address] [place], [address] T4 freeOrdered By: Amber montgomery on 04-13-2025 Free T4 [Mass/Vol] 1.30 ng/dL 0.76-1.46 [facility] TSH DL <= 0.005 mIU/L QnOrde red By: Amber Munoz on 04-13-2025 TSH Qn 1.820 uIU/mL 0.300-4.200 [facility] Thyroid Stim Hormone (TSH)on 04-13-2025 TSH 1.820 uIU/mL Normal 0.300-4.200 [facility] Comment on above: Order Comment: Order Date: 04/12/25Order Info: [id number] - CMPOrder Info: [id number] - LIPIDOrder Info: [id number] - [id number] Info: [id number] - TSHOrder Info: [id number] - T4F Performed By: #### L 500.4050, L300.4310, L3300.0700, L300.3900 #### [facility] [address] [place], [address] Total proteinOrdered By: Gabrielle Munoz on 04-13-2025 Protein [Mass/Vol] 6.8 g/dL 5.9-8.4 [facility] Triglycerides measurementOrd ered By: Amber Munoz on 04-13-2025 Triglyceride [Mass/Vol] 154 mg/dL <199 [facility] Comment on above: The drugs N-Acetylcy steine and Metamizole may falsely depress this assay. Normal range: <150 mg/dLBorderline High: 150-199 mg/dLHigh: 200-499 mg/dLVery High: >500 mg/dL Urine albumin measurement [facility] detection limit of 20 mg/L or less (mass/volume)Ordered By: Amber Munoz on 04-13-2025 Albumin DL <= 20 mg/L (U) [Mass/Vol] < 12.0 mg/L NO RANGE EST. [facility] White blood cell (WBC) count Ordered By: Amber Munoz on 04-13-2025 WBC (Bld) [#/Vol] 6.9 10*3/uL 4.4-11.0 [facility] Final Surgical Pathology Rep [facility] 10-20-2024 Final Surgical Pathology Report . Pathology Reports Accession: Collected Date/Time: Received Date/Time: Pathologist: [id number] 10/18/2024 10:08 EST 10/19/2024 08:43 EST WESTLEY LOCK MD Final Surgical Pathology Report DIAGNOSIS: GASTRIC BIOPSY: - ANTRAL MUCOSA WITH REACTIVE GASTROPATHY AND CHRONIC INACTIVE GASTRITIS - BODY MUCOSA WITH NO SIGNIFICANT PATHOLOGIC CHANGES - NEGATIVE FOR HELICOBACTER PYLORI Comment: Typical histologic features of portal hypertensive gastropathy are not identified. CLINICAL INFORMATION: Procedure: EGD WITH BIOPSY Preoperative diagnosis: CIRRHOSIS Postoperative diagnosis: CIRRHOSIS SPECIMEN: A GASTRIC, BX - R/O PORTAL HYPERTENSIVE GASTROPATHY GROSS DESCRIPTION: All parts labelled with patient name and [id number] Received in formalin labeled gastric biopsy are 5 wispy landrum tissue fragments measuring less than 0.1 to 0.6 x 0.2 cm greatest dimension. Smallest fragment may not survive processing. TS-1 [place], Grossing Water Quality Manager/ Dr. Savage Morfin, Pathologist Performed by [place] Marte MICROSCOPIC DESCRIPTION: The microscopic examination is performed, except in the case of Gross Only. Electronically Signed by Pathology Report verified by [facility] WESTLEY LOCK Sign out Date: 10/20/2024 12:19 Performing Lab: [facility], [address] [place] [address] Pathology Dept Disclaimer If ancillary studies were utilized, the following Laboratory Developed Test (LDT) disclaimer will apply: Under CLIA requirements, [facility] is qualified to perform high complexity testing. For all ancillary stains, positive and negative controls stain appropriately. Performance characteristics of immunohistochemical and chromogenic in-situ hybridization tests have been determined by [facility]. These tests are used for clinical purposes, They should not be regarded as investigational or for research. Normal [facility] LABORATORYOrdered By: Pretty Bernardo on 10-18-2024 Glucose [Mass/Vol] 121 mg/dL High 82 - 115 mg/dL [facility] Work Phone: Abdomen Limitedon 10-05-2024 Abdomen Limited [facility] Services [address] [place] [address] [id number] Abdomen Limited MR#: [id number] Acct: [id number] Name: ANGELIC ROUSE Rep #: [id number] : 1950 M 74 From: Torrey Yen MD PCP: Dr. Amber Munoz MD Status: REG CLI Study: Abdomen Limited Date of Exam: 10/05/24 Exam# [id number] Ordering Dr: Ayad Chu MD [id number] EXAM: US ABDOMEN LIMITED, RIGHT UPPER QUADRANT CLINICAL INDICATION: CIRRHOSIS TECHNIQUE: Real-time ultrasound of the right upper quadrant with image documentation. COMPARISON: No relevant prior studies available. FINDINGS: LIVER: Coarse liver echogenicity consistent with the history of cirrhosis. No space-occupying lesion within the liver is identified. No intrahepatic biliary ductal dilation. GALLBLADDER: Normal. No shadowing gallstone. No gallbladder wall thickening is demonstrated. No pericholecystic fluid. Negative sonographic Zhou''s sign. COMMON BILE DUCT: Unremarkable as visualized. The proximal common bile duct is normal size. PANCREAS: Unremarkable as visualized. No focal abnormality is demonstrated in the pancreas. No pancreatic ductal dilatation. RIGHT KIDNEY: 3.2 cm cyst arises from the lower pole of the right kidney. No additional imaging indicated. There is no hydronephrosis. No shadowing calculus. US/Abdomen Limited IMPRESSION: Liver appearance consistent with cirrhosis. Electronically Signed: Torrey Yen MD at 9:26 EST , CC: Dr. Amber Munoz MD; Dr. 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 AFP, Tumor Markeron 08-27-20 AFP TUMOR [place] 4.5 ng/mL Normal 0.0-8.4 [facility] Comment on above: Order Comment: N Result Comment: [employer] Electrochemiluminescence Immunoassay (ECLIA) Values obtained with different assay methods or kits cannot be used interchangeably. Results cannot be interpreted as absolute evidence of the presence or absence of malignant disease. This test is not interpretable in females. Performed at: [facility] [address] [id number] Commercial Representative: Ayad Luis PhD, Phone: [phone] Performed By: #### L 280.5386, L300.4350, L3300.0700, L300.3900 #### [facility] [address] [place], [place], [id number] Comprehensive Metabolic Prof ilon 08-26-2024 Albumin [Mass/Vol] 3.5 g/dL Normal 3.2-5.0 [facility] Comment on above: Performed By: #### L 500.4050, L300.4310, L3300.0700, L300.3900 #### [facility] [address] [place], [address] Albumin/Globulin [Mass ratio] 0.9 {ratio} Normal 0.9-2.4 [facility] Comment on above: Performed By: #### L 500.4050, L300.4310, L3300.0700, L300.3900 #### [facility] [address] [place], [address] ALK P 69 U/L Normal 45-117 [facility] Comment on above: Performed By: #### L 500.4050, L300.4310, L3300.0700, L300.3900 #### [facility] [address] [place], [address] ALT [Catalytic activity/Vol] 61 U/L Normal 16-61 [facility] Comment on above: Performed By: #### L 500.4050, L300.4310, L3300.0700, L300.3900 #### [facility] [address] [place], [address] AST [Catalytic activity/Vol] 59 U/L High 15-37 [facility] Comment on above: Performed By: #### L 500.4050, L300.4310, L3300.0700, L300.3900 #### [facility] [address] [place], [address] Bilirubin [Mass/Vol] 1.30 mg/dL High 0.20-1.00 [facility] Comment on above: Result Comment: For patients on eltrombopag therapy, use of Dimension [place] TBIL is not recommended. Performed By: #### L 500.4050, L300.4310, L3300.0700, L300.3900 #### [facility] [address] [place], [address] BUN/CRE 16.9 RATIO Normal 10-20 [facility] Comment on above: Performed By: #### L 500.4050, L300.4310, L3300.0700, L300.3900 #### [facility] [address] [place], [address] CA,Total 9.2 mg/dL Normal 8.5-10.1 [facility] Comment on above: Performed By: #### L 500.4050, L300.4310, L3300.0700, L300.3900 #### [facility] [address] [place], [address] Chloride [Moles/Vol] 107 mmol/L Normal 98-107 [facility] Comment on above: Performed By: #### L 500.4050, L300.4310, L3300.0700, L300.3900 #### [facility] [address] [place], [address] CO2 [Moles/Vol] 25.0 mmol/L Normal 21.0-32.0 [facility] Comment on above: Performed By: #### L 500.4050, L300.4310, L3300.0700, L300.3900 #### [facility] [address] [place], [address] Creatinine [Mass/Vol] 0.95 mg/dL Normal 0.70-1.30 [facility] Comment on above: Result Comment: The validity of the calculated GFR GFRAA in patients over 70 years has not been determined. Clinical correlation is essential. Performed By: #### L 500.4050, L300.4310, L3300.0700, L300.3900 #### [facility] [address] [place], [address] EST GFR - AA 101 mL/min Normal >60 [facility] Comment on above: Result Comment: Afri can Citizen Of [place] GFR Calc Performed By: #### L 500.4050, L300.4310, L3300.0700, L300.3900 #### [facility] [address] [place], [address] GAP 7 Normal 5-15 [facility] Comment on above: Performed By: #### L 500.4050, L300.4310, L3300.0700, L300.3900 #### [facility] [address] [place], [address] GFR/1.73 sq M.predicted among non-blacks MDRD (S/P/Bld) [Vol rate/Area] 83 mL/min/{1.73_m2} Normal >60 [facility] Comment on above: Result Comment: Non- GFR Calc Performed By: #### L 500.4050, L300.4310, L3300.0700, L300.3900 #### [facility] [address] [place], [address] Globulin (S) [Mass/Vol] 4.1 g/dL Normal 2.2-4.2 [facility] Comment on above: Performed By: #### L 500.4050, L300.4310, L3300.0700, L300.3900 #### [facility] [address] [place], [address] Glucose [Mass/Vol] 119 mg/dL High 74-106 [facility] Comment on above: Result Comment: Fast ing Glucose result from 100 to 125 mg/dL suggests IMPAIRED HOMEOSTASIS per A.D.A. criteria. Performed By: #### L 500.4050, L300.4310, L3300.0700, L300.3900 #### [facility] [address] [place], [address] Potassium [Moles/Vol] 3.6 mmol/L Normal 3.5-5.1 [facility] Comment on above: Performed By: #### L 500.4050, L300.4310, L3300.0700, L300.3900 #### [facility] [address] [place], [address] Sodium [Moles/Vol] 139 mmol/L Normal 136-145 [facility] Comment on above: Performed By: #### L 500.4050, L300.4310, L3300.0700, L300.3900 #### [facility] [address] [place], [address] T PROT 7.6 g/dL Normal 6.4-8.2 [facility] Comment on above: Performed By: #### L 500.4050, L300.4310, L3300.0700, L300.3900 #### [facility] [address] [place], [address] Urea nitrogen [Mass/Vol] 16 mg/dL Normal 7-18 [facility] Comment on above: Performed By: #### L 500.4050, L300.4310, L3300.0700, L300.3900 #### [facility] [address] [place], [address] Partial Thromboplast Timeon 08-26-2024 aPTT Coag (Bld) [Time] 29.6 s Normal 24.1-36.2 [facility] Comment on above: Performed By: #### L 500.4050, L300.4310, L3300.0700, L300.3900 #### [facility] [address] [place], [address] Prothrombin Time w/INRon INR Coag (PPP) [Relative time] 1.2 {INR} Normal [facility] Comment on above: Performed By: #### L 500.4050, L300.4310, L3300.0700, L300.3900 #### [facility] [address] [place], [address] PT Coag (PPP) [Time] 15.4 s High 11.7-14.9 [facility] Comment on above: Performed By: #### L 500.7190, L300.4310, L3300.0700, L300.3900 #### [facility] [address] [place], [address] Basophil percentageOrdered B y: Ayad Chu on 03-04-2024 Basophil percentage < 1.0 mg/dL 0.70-1.30 [facility] No Panel InformationOrdered By: Ayad Chu on 03-04-2024 Bedside Estimated GFR (eGFR) > 60.0000 mL/min >60 [facility] Absolute lymphocyte countOrd ered By: Amber Munoz on 01-07-2024 Lymphocytes Auto (Unsp spec) [#/Vol] 2.95 10*3/uL 0.83-4.51 [facility] Automated lymphocyte count a s percentage of total leukocytesOrdered By: Amber Munoz on 01-07-2024 Lymphocytes/100 WBC Auto (Unsp spec) 38.5 % 19-41 [facility] Basophil percentageOrdered B y: Amber Munoz on 01-07-2024 Basophils/100 WBC (Bld) 0.9 % 0-1 [facility] Bilirubin [Mass/Vol] 1.40 mg/dL 0.20-1.00 [facility] Comment on above: For patients on eltr ombopag therapy, use of Dimension [place] TBIL is not recommended. Chloride [Moles/Vol] 107 mmol/L 98-107 [facility] Eosinophils/100 WBC (Bld) 2.5 % 0-5 [facility] Glucose [Mass/Vol] 125 mg/dL 74-106 [facility] Comment on above: Fasting Glucose resu lt from 100 to 125 mg/dL suggests IMPAIRED HOMEOSTASIS per A.D.A. criteria. Hemoglobin (Bld) [Mass/Vol] 16.9 g/dL 13.0-16.5 [facility] Monocytes/100 WBC (Bld) 10.3 % 0-10 [facility] Neutrophils (Bld) [#/Vol] 3.6 10*3/uL 2.0-7.7 [facility] Neutrophils/100 WBC (Bld) 47.5 % 47-70 [facility] Potassium [Moles/Vol] 4.0 mmol/L 3.5-5.1 [facility] Protein [Mass/Vol] 7.2 g/dL 6.4-8.2 [facility] Sodium [Moles/Vol] 138 mmol/L 136-145 [facility] WBC (Bld) [#/Vol] 7.7 10*3/uL 4.4-11.0 [facility] Determination of erythrocyte mean corpuscular volume (MCV)Ordered By: Amber Munoz on 01-07-2024 MCV (RBC) [Entitic vol] 98.1 fL 80-94 [facility] Erythrocyte distribution wid th ratioOrdered By: Amber Munoz on 01-07-2024 Erythrocyte distribution width (RBC) [Ratio] 13.2 % 11.6-14.6 [facility] Erythrocyte distribution wid th standard deviationOrdered By: Amber Munoz on 01-07-2024 Erythrocyte distribution width (RBC) [Entitic vol] 47.7 fL 35.1-43.9 [facility] Hematocrit Auto (Bld) [Volum e fraction]Ordered By: Amber Munoz on 01-07-2024 Hematocrit (Bld) [Volume fraction] 51.4 % 40-54 [facility] Immature granulocytes/100 WB C Auto (Bld)Ordered By: Amber Munoz on 01-07-2024 Immature granulocytes/100 WBC (Bld) 0.300 % 0.0-0.9 [facility] Comment on above: IG% - Immature Granu locytes (promyelocytes, myelocytes and metamyelocytes) > 1% indicates that a LEFT SHIFT is Present. Laboratory - Chemistry and C hemistry - challengeOrdered By: Amber Munoz on 01-07-2024 Albumin/Globulin [Mass ratio] 0.9 {ratio} 0.9-2.4 [facility] ALP [Catalytic activity/Vol] 59 U/L 45-117 [facility] ALT [Catalytic activity/Vol] 65 U/L 16-61 [facility] Amylase [Catalytic activity/Vol] 290 U/L 15-85 [facility] CO2 [Moles/Vol] 25.0 mmol/L 21.0-32.0 [facility] Globulin (S) [Mass/Vol] 3.7 g/dL 2.2-4.2 [facility] Urea nitrogen/Creatinine [Mass ratio] 20.4 mg/mg 10-20 [facility] Laboratory - Hematology and Cell countsOrdered By: Amber Munoz on 01-07-2024 MCH (RBC) [Entitic mass] 32.3 pg 27.0-32.0 [facility] MCHC (RBC) [Mass/Vol] 32.9 g/dL 32-36 [facility] Nucleated RBC/100 WBC (Bld) [Ratio] 0 % 0-5 [facility] Platelet mean volume (Bld) [Entitic vol] 10.5 fL 6.2-12.0 [facility] Platelets (Bld) [#/Vol] 196 10*3/uL 150-450 [facility] No Panel InformationOrdered By: Amber Munoz on 01-07-2024 Estimated GFR (MDRD) Amer 103 mL/min >60 [facility] Comment on above: GFR Calc Estimated GFR (MDRD) Non-Af Amer 85 mL/min >60 [facility] Comment on above: Non- GFR Calc Free Triiodothyronine (T3) pg/dL 2.3 pg/mL 2.18-3.98 [facility] Urine Microalbumin/Creatinin e Ratio 5.1 mg/g CRE <30 [facility] RBC Auto (Bld) [#/Vol]Ordere d By: Amber Munoz on 01-07-2024 RBC (Bld) [#/Vol] 5.24 10*6/uL 4.6-6.2 [facility] Serum or plasma calcium joanie urement (mass/volume)Ordered By: Amber Munoz on 01-07-2024 Calcium [Mass/Vol] 9.3 mg/dL 8.5-10.1 [facility] Serum or plasma creatinine m easurement (mass/volume)Ordered By: Amber Munoz on 01-07-2024 Creatinine [Mass/Vol] 0.93 mg/dL 0.70-1.30 [facility] Comment on above: The validity of the calculated GFR & GFRAA in patients over 70 years has not been determined. Clinical correlation is essential. Serum or plasma thyroid stim ulating hormone (TSH) measurement (units/volume)Ordered By: Amber Munoz on 01-07-2024 TSH Qn 5.45 uIU/mL 0.358-3.74 [facility] Serum or plasma urea nitroge n measurement (mass/volume)Ordered By: Amber Munoz on 01-07-2024 Urea nitrogen [Mass/Vol] 19 mg/dL 7-18 [facility] Thin prep Papanicolaou smear with manual screeningOrdered By: Amber Munoz on 01-07-2024 Thin prep Papanicolaou smear with manual screening 3.5 g/dL 3.2-5.0 [facility] Thin prep Papanicolaou smear with manual screening 67 U/L 15-37 [facility] Thin prep Papanicolaou smear with manual screening 6 5-15 [facility] Thin prep Papanicolaou smear with manual screening 7.3 mg/L NO RANGE EST. [facility] Thin prep Papanicolaou smear with manual screening 1.18 ng/dL 0.76-1.46 [facility] Urine creatinine measurement (mass/volume)Ordered By: Amber Munoz on 01-07-2024 Creatinine (U) [Mass/Vol] 142.00 mg/dL NO RANGE EST. [facility] Whole blood hemoglobin A1c/t otal hemoglobin ratio (mass fraction)Ordered By: Amber Munoz on 01-07-2024 HbA1c (Bld) [Mass fraction] 6.7 % 3.8-5.6 [facility] Comment on above: Normal < 5.7 % Predi abetic 5.7 - 6.4 % Diabetic >or= 6.5 % Please note range changes. Laboratory - Chemistry and C hemistry - challengeOrdered By: Amber Munoz on 10-15-2023 Free T4 [Mass/Vol] 1.25 ng/dL 0.76-1.46 [facility] No Panel InformationOrdered By: Amber Munoz on 10-15-2023 Free Triiodothyronine (T3) pg/dL 2.2 pg/mL 2.18-3.98 [facility] Thyroid Stimulating Hormone (TSH) 2.38 uIU/mL 0.358-3.74 [facility] Laboratory - Chemistry and C hemistry - challengeOrdered By: Amber Munoz on 09-01-2023 Free T4 [Mass/Vol] 1.17 ng/dL 0.76-1.46 [facility] No Panel InformationOrdered By: Amber Munoz on 09-01-2023 Free Triiodothyronine (T3) pg/dL 2.4 pg/mL 2.18-3.98 [facility] Thyroid Stimulating Hormone (TSH) 7.89 uIU/mL 0.358-3.74 [facility] Absolute lymphocyte countOrd ered By: Amber Munoz on 07-14-2023 Lymphocytes Auto (Unsp spec) [#/Vol] 2.66 10*3/uL 0.83-4.51 [facility] Basophil percentageOrdered B y: Amber Munoz on 07-14-2023 Basophils/100 WBC (Bld) 0.8 % 0-1 [facility] Bilirubin [Mass/Vol] 1.30 mg/dL 0.20-1.00 [facility] Comment on above: For patients on eltr ombopag therapy, use of Dimension [place] TBIL is not recommended. Chloride [Moles/Vol] 106 mmol/L 98-107 [facility] Eosinophils/100 WBC (Bld) 3.5 % 0-5 [facility] Glucose [Mass/Vol] 113 mg/dL 74-106 [facility] Comment on above: Fasting Glucose resu lt from 100 to 125 mg/dL suggests IMPAIRED HOMEOSTASIS per A.D.A. criteria. Neutrophils (Bld) [#/Vol] 3.0 10*3/uL 2.0-7.7 [facility] Neutrophils/100 WBC (Bld) 45.6 % 47-70 [facility] Potassium [Moles/Vol] 3.8 mmol/L 3.5-5.1 [facility] Protein [Mass/Vol] 7.1 g/dL 6.4-8.2 [facility] Sodium [Moles/Vol] 137 mmol/L 136-145 [facility] WBC (Bld) [#/Vol] 6.6 10*3/uL 4.4-11.0 [facility] Blood erythrocytes count (nu mber/volume)Ordered By: Amber Munoz on 07-14-2023 RBC (Bld) [#/Vol] 5.04 10*6/uL 4.6-6.2 [facility] Blood hemoglobin measurement (mass/volume)Ordered By: Amber Munoz on 07-14-2023 Hemoglobin (Bld) [Mass/Vol] 16.9 g/dL 13.0-16.5 [facility] Blood lymphocytes/100 leukoc ytesOrdered By: Amber Munoz on 07-14-2023 Lymphocytes/100 WBC (Bld) 40.4 % 19-41 [facility] Blood monocytes/100 leukocyt esOrdered By: Amber Munoz on 07-14-2023 Monocytes/100 WBC (Bld) 9.4 % 0-10 [facility] Blood platelet mean volumeOr dered By: Amber Munoz on 07-14-2023 Platelet mean volume (Bld) [Entitic vol] 10.3 fL 6.2-12.0 [facility] Determination of erythrocyte mean corpuscular volume (MCV)Ordered By: Amber Munoz on 07-14-2023 MCV (RBC) [Entitic vol] 98.0 fL 80-94 [facility] Hematocrit Auto (Bld) [Volum e fraction]Ordered By: Amber Munoz on 07-14-2023 Hematocrit (Bld) [Volume fraction] 49.4 % 40-54 [facility] Laboratory - Chemistry and C hemistry - challengeOrdered By: Amber Munoz on 07-14-2023 ALP [Catalytic activity/Vol] 57 U/L 45-117 [facility] ALT [Catalytic activity/Vol] 57 U/L 16-61 [facility] Amylase [Catalytic activity/Vol] 276 U/L 15-85 [facility] CO2 [Moles/Vol] 25.0 mmol/L 21.0-32.0 [facility] Free T4 [Mass/Vol] 1.13 ng/dL 0.76-1.46 [facility] Globulin (S) [Mass/Vol] 3.7 g/dL 2.2-4.2 [facility] Urea nitrogen/Creatinine [Mass ratio] 18.2 mg/mg 10-20 [facility] Laboratory - Hematology and Cell countsOrdered By: Amber Munoz on 07-14-2023 Erythrocyte distribution width (RBC) [Entitic vol] 46.7 fL 35.1-43.9 [facility] Erythrocyte distribution width (RBC) [Ratio] 12.9 % 11.6-14.6 [facility] Immature granulocytes/100 WBC (Bld) 0.300 % 0.0-0.9 [facility] Comment on above: IG% - Immature Granu locytes (promyelocytes, myelocytes and metamyelocytes) > 1% indicates that a LEFT SHIFT is Present. MCH (RBC) [Entitic mass] 33.5 pg 27.0-32.0 [facility] Nucleated RBC/100 WBC (Bld) [Ratio] 0 % 0-5 [facility] MCHC Auto (RBC) [Mass/Vol]Or dered By: Amber Munoz on 07-14-2023 MCHC (RBC) [Mass/Vol] 34.2 g/dL 32-36 [facility] No Panel InformationOrdered By: Amber Munoz on 07-14-2023 Estimated GFR (MDRD) Amer 96 mL/min >60 [facility] Comment on above: GFR Calc Estimated GFR (MDRD) Non-Af Amer 79 mL/min >60 [facility] Comment on above: Non- GFR Calc Free Triiodothyronine (T3) pg/dL 2.4 pg/mL 2.18-3.98 [facility] Thyroid Stimulating Hormone (TSH) 8.04 uIU/mL 0.358-3.74 [facility] Platelets bldOrdered By: Gabrielle Munoz on 07-14-2023 Platelets (Bld) [#/Vol] 184 10*3/uL 150-450 [facility] Serum or plasma albumin joanie urement (mass/volume)Ordered By: Amber Munoz on 07-14-2023 Albumin [Mass/Vol] 3.4 g/dL 3.2-5.0 [facility] Serum or plasma albumin/glob ulin mass ratioOrdered By: Amber Munoz on 07-14-2023 Albumin/Globulin [Mass ratio] 0.9 {ratio} 0.9-2.4 [facility] Serum or plasma calcium joanie urement (mass/volume)Ordered By: Amber Munoz on 07-14-2023 Calcium [Mass/Vol] 8.7 mg/dL 8.5-10.1 [facility] Serum or plasma creatinine m easurement (mass/volume)Ordered By: Amber Munoz on 07-14-2023 Creatinine [Mass/Vol] 0.99 mg/dL 0.70-1.30 [facility] Comment on above: The validity of the calculated GFR & GFRAA in patients over 70 years has not been determined. Clinical correlation is essential. Serum or plasma urea nitroge n measurement (mass/volume)Ordered By: Amber Munoz on 07-14-2023 Urea nitrogen [Mass/Vol] 18 mg/dL 7-18 [facility] Thin prep Papanicolaou smear with manual screeningOrdered By: Amber Munoz on 07-14-2023 Thin prep Papanicolaou smear with manual screening 52 U/L 15-37 [facility] Thin prep Papanicolaou smear with manual screening 6 5-15 [facility] Whole blood hemoglobin A1c/t otal hemoglobin ratio (mass fraction)Ordered By: Amber Munoz on 07-14-2023 HbA1c (Bld) [Mass fraction] 6.3 % 3.8-5.6 [facility] Comment on above: Normal < 5.7 % Predi abetic 5.7 - 6.4 % Diabetic >or= 6.5 % Please note range changes. Absolute lymphocyte countOrd ered By: Amber Munoz on 04-09-2023 Lymphocytes Auto (Unsp spec) [#/Vol] 2.51 10*3/uL 0.83-4.51 [facility] Basophil percentageOrdered B y: Amber Munoz on 04-09-2023 Basophils/100 WBC (Bld) 0.8 % 0-1 [facility] Bilirubin [Mass/Vol] 1.40 mg/dL 0.20-1.00 [facility] Comment on above: For patients on eltr ombopag therapy, use of Dimension [place] TBIL is not recommended. Chloride [Moles/Vol] 106 mmol/L 98-107 [facility] Cholesterol [Mass/Vol] 156 mg/dL <200 [facility] Comment on above: <200 mg/dL Desirable 200-240 mg/dL Borderline >240 mg/dL High Risk Eosinophils/100 WBC (Bld) 3.3 % 0-5 [facility] Glucose [Mass/Vol] 126 mg/dL 74-106 [facility] Comment on above: Fasting Glucose resu lt greater than or equal to 126 mg/dL suggests DIABETES MELLITUS per A.D.A. criteria. Neutrophils (Bld) [#/Vol] 4.4 10*3/uL 2.0-7.7 [facility] Neutrophils/100 WBC (Bld) 54.6 % 47-70 [facility] Potassium [Moles/Vol] 4.0 mmol/L 3.5-5.1 [facility] Protein [Mass/Vol] 6.9 g/dL 6.4-8.2 [facility] Sodium [Moles/Vol] 137 mmol/L 136-145 [facility] Triglyceride [Mass/Vol] 169 mg/dL <199 [facility] Comment on above: The drugs N-Acetylcy steine and Metamizole may falsely depress this assay.Serum Triglycerides Reference Interval Normal <150 mg/dL Borderline high 150 - 199 mg/dL High 200 - 499 mg/dL Very High > or = 500 mg/dL WBC (Bld) [#/Vol] 8.0 10*3/uL 4.4-11.0 [facility] Blood erythrocytes count (nu mber/volume)Ordered By: Amber Munoz on 04-09-2023 RBC (Bld) [#/Vol] 5.00 10*6/uL 4.6-6.2 [facility] Blood hemoglobin measurement (mass/volume)Ordered By: Amber Munoz on 04-09-2023 Hemoglobin (Bld) [Mass/Vol] 16.3 g/dL 13.0-16.5 [facility] Blood lymphocytes/100 leukoc ytesOrdered By: Amber Munoz on 04-09-2023 Lymphocytes/100 WBC (Bld) 31.6 % 19-41 [facility] Blood monocytes/100 leukocyt esOrdered By: Amber Munoz on 04-09-2023 Monocytes/100 WBC (Bld) 9.3 % 0-10 [facility] Blood platelet mean volumeOr dered By: Amber Munoz on 04-09-2023 Platelet mean volume (Bld) [Entitic vol] 10.3 fL 6.2-12.0 [facility] Determination of erythrocyte mean corpuscular volume (MCV)Ordered By: Amber Munoz on 04-09-2023 MCV (RBC) [Entitic vol] 97.4 fL 80-94 [facility] Hematocrit Auto (Bld) [Volum e fraction]Ordered By: Amber Munoz on 04-09-2023 Hematocrit (Bld) [Volume fraction] 48.7 % 40-54 [facility] Laboratory - Chemistry and C hemistry - challengeOrdered By: Amber Munoz on 04-09-2023 ALP [Catalytic activity/Vol] 53 U/L 45-117 [facility] ALT [Catalytic activity/Vol] 62 U/L 16-61 [facility] CO2 [Moles/Vol] 21.0 mmol/L 21.0-32.0 [facility] Globulin (S) [Mass/Vol] 3.3 g/dL 2.2-4.2 [facility] Urea nitrogen/Creatinine [Mass ratio] 22.8 mg/mg 10-20 [facility] Laboratory - Hematology and Cell countsOrdered By: Amber Munoz on 04-09-2023 Erythrocyte distribution width (RBC) [Entitic vol] 46.7 fL 35.1-43.9 [facility] Erythrocyte distribution width (RBC) [Ratio] 13.1 % 11.6-14.6 [facility] Immature granulocytes/100 WBC (Bld) 0.400 % 0.0-0.9 [facility] Comment on above: IG% - Immature Granu locytes (promyelocytes, myelocytes and metamyelocytes) > 1% indicates that a LEFT SHIFT is Present. MCH (RBC) [Entitic mass] 32.6 pg 27.0-32.0 [facility] Nucleated RBC/100 WBC (Bld) [Ratio] 0 % 0-5 [facility] MCHC Auto (RBC) [Mass/Vol]Or dered By: Amber Munoz on 04-09-2023 MCHC (RBC) [Mass/Vol] 33.5 g/dL 32-36 [facility] No Panel InformationOrdered By: Amber Munoz on 04-09-2023 Estimated GFR (MDRD) Amer 104 mL/min >60 [facility] Comment on above: GFR Calc Estimated GFR (MDRD) Non-Af Amer 86 mL/min >60 [facility] Comment on above: Non- GFR Calc Prostate Specific Antigen Screen 0.99 ng/mL 0.00-4.00 [facility] Comment on above: This test was perfor med using the TPSA assay method for the[employer] chemistry system. Values obtained with differentassay methods cannot be used interchangably.When changing PSA assays in the course of monitoring apatient, additional sequential testing should be carriedout to confirm baseline values. Thyroid Stimulating Hormone (TSH) 7.99 uIU/mL 0.358-3.74 [facility] Urine Microalbumin/Creatinin e Ratio 7.1 mg/g CRE <30 [facility] Platelets bldOrdered By: Gabrielle Munoz on 04-09-2023 Platelets (Bld) [#/Vol] 200 10*3/uL 150-450 [facility] Serum or plasma albumin joanie urement (mass/volume)Ordered By: Amber Munoz on 04-09-2023 Albumin [Mass/Vol] 3.6 g/dL 3.2-5.0 [facility] Serum or plasma albumin/glob ulin mass ratioOrdered By: Amber Munoz on 04-09-2023 Albumin/Globulin [Mass ratio] 1.1 {ratio} 0.9-2.4 [facility] Serum or plasma calcium joanie urement (mass/volume)Ordered By: Amber Munoz on 04-09-2023 Calcium [Mass/Vol] 9.2 mg/dL 8.5-10.1 [facility] Serum or plasma cholesterol in HDL measurement (mass/volume)Ordered By: Amber Munoz on 04-09-2023 Cholesterol in HDL [Mass/Vol] 32 mg/dL >40 [facility] Comment on above: The drugs N-Acetylcy steine and Metamizole may falsely depress this assay. Reference Range HDL <40 mg/dL Low HDL Cholesterol HDL >or= 60 mg/dL High HDL Cholesterol Serum or plasma cholesterol in VLDL measurement (mass/volume)Ordered By: Amber Munoz on 04-09-2023 Cholesterol in VLDL [Mass/Vol] 34 mg/dL 5-40 [facility] Serum or plasma creatinine m easurement (mass/volume)Ordered By: Amber Munoz on 04-09-2023 Creatinine [Mass/Vol] 0.92 mg/dL 0.70-1.30 [facility] Comment on above: The validity of the calculated GFR & GFRAA in patients over 70 years has not been determined. Clinical correlation is essential. Serum or plasma low density lipoprotein (LDL) cholesterol measurement (mass/volume)Ordered By: Amber Munoz on 04-09-2023 Cholesterol in LDL [Mass/Vol] 90 mg/dL 0-130 [facility] Serum or plasma urea nitroge n measurement (mass/volume)Ordered By: Amber Munoz on 04-09-2023 Urea nitrogen [Mass/Vol] 21 mg/dL 7-18 [facility] Thin prep Papanicolaou smear with manual screeningOrdered By: Amber Munoz on 04-09-2023 Thin prep Papanicolaou smear with manual screening 69 U/L 15-37 [facility] Thin prep Papanicolaou smear with manual screening 10 5-15 [facility] Thin prep Papanicolaou smear with manual screening 8.7 mg/L NO RANGE EST. [facility] Urine creatinine measurement (mass/volume)Ordered By: Amber Munoz on 04-09-2023 Creatinine (U) [Mass/Vol] 122.00 mg/dL NO RANGE EST. [facility] Basophil percentageOrdered B y: Dr. Munoz on 10-11-2022 Bilirubin [Mass/Vol] 1.20 mg/dL 0.20-1.00 [facility] Comment on above: For patients on eltr ombopag therapy, use of Dimension [place] TBIL is not recommended. Chloride [Moles/Vol] 104 mmol/L 98-107 [facility] Glucose [Mass/Vol] 117 mg/dL 74-106 [facility] Comment on above: Fasting Glucose resu lt from 100 to 125 mg/dL suggests IMPAIRED HOMEOSTASIS per A.D.A. criteria. Potassium [Moles/Vol] 4.0 mmol/L 3.5-5.1 [facility] Protein [Mass/Vol] 7.1 g/dL 6.4-8.2 [facility] Sodium [Moles/Vol] 137 mmol/L 136-145 [facility] WBC (Bld) [#/Vol] 8.2 10*3/uL 4.4-11.0 [facility] Blood erythrocytes count (nu mber/volume)Ordered By: Dr. Munoz on 10-11-2022 RBC (Bld) [#/Vol] 5.24 10*6/uL 4.6-6.2 [facility] Blood hemoglobin measurement (mass/volume)Ordered By: Dr. Munoz on 10-11-2022 Hemoglobin (Bld) [Mass/Vol] 17.0 g/dL 13.0-16.5 [facility] Blood platelet mean volumeOr dered By: Dr. Munoz on 10-11-2022 Platelet mean volume (Bld) [Entitic vol] 10.1 fL 6.2-12.0 [facility] Determination of erythrocyte mean corpuscular volume (MCV)Ordered By: Dr. Munoz on 10-11-2022 MCV (RBC) [Entitic vol] 96.6 fL 80-94 [facility] Hematocrit Auto (Bld) [Volum e fraction]Ordered By: Dr. Munoz on 10-11-2022 Hematocrit (Bld) [Volume fraction] 50.6 % 40-54 [facility] Laboratory - Chemistry and C hemistry - challengeOrdered By: Dr. Munoz on 10-11-2022 ALP [Catalytic activity/Vol] 53 U/L 45-117 [facility] ALT [Catalytic activity/Vol] 68 U/L 16-61 [facility] CO2 [Moles/Vol] 26.0 mmol/L 21.0-32.0 [facility] Globulin (S) [Mass/Vol] 3.3 g/dL 2.2-4.2 [facility] Urea nitrogen/Creatinine [Mass ratio] 23.0 mg/mg 10-20 [facility] Laboratory - Hematology and Cell countsOrdered By: Dr. Munoz on 10-11-2022 Erythrocyte distribution width (RBC) [Entitic vol] 46.5 fL 35.1-43.9 [facility] Erythrocyte distribution width (RBC) [Ratio] 13.0 % 11.6-14.6 [facility] MCH (RBC) [Entitic mass] 32.4 pg 27.0-32.0 [facility] MCHC Auto (RBC) [Mass/Vol]Or dered By: Dr. Munoz on 10-11-2022 MCHC (RBC) [Mass/Vol] 33.6 g/dL 32-36 [facility] No Panel InformationOrdered By: Dr. Munoz on 10-11-2022 Estimated GFR (MDRD) Amer 105 mL/min >60 [facility] Comment on above: GFR Calc Estimated GFR (MDRD) Non-Af Amer 87 mL/min >60 [facility] Comment on above: Non- GFR Calc Urine Microalbumin/Creatinin e Ratio 4.3 mg/g CRE <30 [facility] Platelets bldOrdered By: Dr. Munoz on 10-11-2022 Platelets (Bld) [#/Vol] 191 10*3/uL 150-450 [facility] Serum or plasma albumin joanie urement (mass/volume)Ordered By: Dr. Munoz on 10-11-2022 Albumin [Mass/Vol] 3.8 g/dL 3.2-5.0 [facility] Serum or plasma albumin/glob ulin mass ratioOrdered By: Dr. Munoz on 10-11-2022 Albumin/Globulin [Mass ratio] 1.2 {ratio} 0.9-2.4 [facility] Serum or plasma calcium joanie urement (mass/volume)Ordered By: Dr. Munoz on 10-11-2022 Calcium [Mass/Vol] 9.3 mg/dL 8.5-10.1 [facility] Serum or plasma creatinine m easurement (mass/volume)Ordered By: Dr. Munoz on 10-11-2022 Creatinine [Mass/Vol] 0.92 mg/dL 0.70-1.30 [facility] Comment on above: The validity of the calculated GFR & GFRAA in patients over 70 years has not been determined. Clinical correlation is essential. Serum or plasma urea nitroge n measurement (mass/volume)Ordered By: Dr. Munoz on 10-11-2022 Urea nitrogen [Mass/Vol] 21 mg/dL 7-18 [facility] Thin prep Papanicolaou smear with manual screeningOrdered By: Dr. Munoz on 10-11-2022 Thin prep Papanicolaou smear with manual screening 63 U/L 15-37 [facility] Thin prep Papanicolaou smear with manual screening 7 5-15 [facility] Thin prep Papanicolaou smear with manual screening 7.0 mg/L NO RANGE EST. [facility] Urine creatinine measurement (mass/volume)Ordered By: Dr. Munoz on 10-11-2022 Creatinine (U) [Mass/Vol] 163.00 mg/dL NO RANGE EST. [facility] Whole blood hemoglobin A1c/t otal hemoglobin ratio (mass fraction)Ordered By: Dr. Munoz on 10-11-2022 HbA1c (Bld) [Mass fraction] 6.2 % 3.8-5.6 [facility] Comment on above: Normal < 5.7 % Predi abetic 5.7 - 6.4 % Diabetic >or= 6.5 % Please note range changes. Absolute lymphocyte counton 04-12-2022 Lymphocytes Auto (Unsp spec) [#/Vol] 3.13 10*3/uL 0.83-4.51 [facility] Work Phone: Basophil percentageon 2021 Basophils/100 WBC (Bld) 0.7 % 0-1 [facility] Work Phone: Bilirubin [Mass/Vol] 1.50 mg/dL 0.20-1.00 [facility] Work Phone: Comment on above: For patients on eltr ombopag therapy, use of Dimension [place] TBIL is not recommended. Chloride [Moles/Vol] 106 mmol/L 98-107 [facility] Work Phone: Cholesterol [Mass/Vol] 140 mg/dL <200 [facility] Work Phone: Comment on above: <200 mg/dL Desirable 200-240 mg/dL Borderline >240 mg/dL High Risk Eosinophils/100 WBC (Bld) 2.8 % 0-5 [facility] Work Phone: Glucose [Mass/Vol] 117 mg/dL 74-106 [facility] Work Phone: Comment on above: Fasting Glucose resu lt from 100 to 125 mg/dL suggests IMPAIRED HOMEOSTASIS per A.D.A. criteria. Neutrophils (Bld) [#/Vol] 3.1 10*3/uL 2.0-7.7 [facility] Work Phone: [phone] Neutrophils/100 WBC (Bld) 43.6 % 47-70 [facility] Work Phone: [phone] Potassium [Moles/Vol] 4.0 mmol/L 3.5-5.1 [facility] Work Phone: Protein [Mass/Vol] 6.9 g/dL 6.4-8.2 [facility] Work Phone: [phone] Sodium [Moles/Vol] 137 mmol/L 136-145 [facility] Work Phone: Triglyceride [Mass/Vol] 202 mg/dL [facility] Work Phone: Comment on above: The drugs N-Acetylcy steine and Metamizole may falsely depress this assay.Serum Triglycerides Reference Interval Normal <150 mg/dL Borderline high 150 - 199 mg/dL High 200 - 499 mg/dL Very High > or = 500 mg/dL WBC (Bld) [#/Vol] 7.2 10*3/uL 4.4-11.0 [facility] Work Phone: Blood erythrocytes count (nu mber/volume)on 04-12-2022 RBC (Bld) [#/Vol] 5.03 10*6/uL 4.6-6.2 [facility] Work Phone: Blood hemoglobin measurement (mass/volume)on 04-12-2022 Hemoglobin (Bld) [Mass/Vol] 16.3 g/dL 13.0-16.5 [facility] Work Phone: Blood lymphocytes/100 leukoc yteson 04-12-2022 Lymphocytes/100 WBC (Bld) 43.7 % 19-41 [facility] Work Phone: Blood monocytes/100 leukocyt eson 04-12-2022 Monocytes/100 WBC (Bld) 8.8 % 0-10 [facility] Work Phone: Blood platelet mean volumeon 04-12-2022 Platelet mean volume (Bld) [Entitic vol] 10.2 fL 6.2-12.0 [facility] Work Phone: Determination of erythrocyte mean corpuscular volume (MCV)on 04-12-2022 MCV (RBC) [Entitic vol] 95.0 fL 80-94 [facility] Work Phone: Hematocrit Auto (Bld) [Volum e fraction]on 04-12-2022 Hematocrit (Bld) [Volume fraction] 47.8 % 40-54 [facility] Work Phone: Laboratory - Chemistry and C hemistry - challengeon 04-12-2022 ALP [Catalytic activity/Vol] 42 U/L 45-117 [facility] Work Phone: ALT [Catalytic activity/Vol] 54 U/L 16-61 [facility] Work Phone: CO2 [Moles/Vol] 25.0 mmol/L 21.0-32.0 [facility] Work Phone: Globulin (S) [Mass/Vol] 3.4 g/dL 2.2-4.2 [facility] Work Phone: Urea nitrogen/Creatinine [Mass ratio] 19.8 mg/mg 10-20 [facility] Work Phone: Laboratory - Hematology and Cell countson 04-12-2022 Erythrocyte distribution width (RBC) [Entitic vol] 45.7 fL 35.1-43.9 [facility] Work Phone: Erythrocyte distribution width (RBC) [Ratio] 13.0 % 11.6-14.6 [facility] Work Phone: Immature granulocytes/100 WBC (Bld) 0.400 % 0.0-0.9 [facility] Work Phone: Comment on above: IG% - Immature Granu locytes (promyelocytes, myelocytes and metamyelocytes) > 1% indicates that a LEFT SHIFT is Present. MCH (RBC) [Entitic mass] 32.4 pg 27.0-32.0 [facility] Work Phone: Nucleated RBC/100 WBC (Bld) [Ratio] 0 % 0-5 [facility] Work Phone: MCHC Auto (RBC) [Mass/Vol]on 04-12-2022 MCHC (RBC) [Mass/Vol] 34.1 g/dL 32-36 [facility] Work Phone: No Panel Informationon 04-12 Estimated GFR (MDRD) Amer 89 mL/min >60 [facility] Work Phone: Comment on above: GFR Calc Estimated GFR (MDRD) Non-Af Amer 73 mL/min >60 [facility] Work Phone: Comment on above: Non- GFR Calc Urine Microalbumin/Creatinin e Ratio 5.5 mg/g CRE <30 [facility] Work Phone: Platelets bldon 04-12-2022 Platelets (Bld) [#/Vol] 197 10*3/uL 150-450 [facility] Work Phone: Serum or plasma albumin joanie urement (mass/volume)on 04-12-2022 Albumin [Mass/Vol] 3.5 g/dL 3.2-5.0 [facility] Work Phone: Serum or plasma albumin/glob ulin mass ratioon 04-12-2022 Albumin/Globulin [Mass ratio] 1.0 {ratio} 0.9-2.4 [facility] Work Phone: Serum or plasma calcium joanie urement (mass/volume)on 04-12-2022 Calcium [Mass/Vol] 8.7 mg/dL 8.5-10.1 [facility] Work Phone: Serum or plasma cholesterol in HDL measurement (mass/volume)on 04-12-2022 Cholesterol in HDL [Mass/Vol] 29 mg/dL [facility] Work Phone: Comment on above: The drugs N-Acetylcy steine and Metamizole may falsely depress this assay. Reference Range HDL <40 mg/dL Low HDL Cholesterol HDL >or= 60 mg/dL High HDL Cholesterol Serum or plasma cholesterol in VLDL measurement (mass/volume)on 04-12-2022 Cholesterol in VLDL [Mass/Vol] 40 mg/dL 5-40 [facility] Work Phone: Serum or plasma creatinine m easurement (mass/volume)on 04-12-2022 Creatinine [Mass/Vol] 1.06 mg/dL 0.70-1.30 [facility] Work Phone: Comment on above: The validity of the calculated GFR & GFRAA in patients over 70 years has not been determined. Clinical correlation is essential. Serum or plasma low density lipoprotein (LDL) cholesterol measurement (mass/volume)on 04-12-2022 Cholesterol in LDL [Mass/Vol] 71 mg/dL 0-130 [facility] Work Phone: Serum or plasma urea nitroge n measurement (mass/volume)on 04-12-2022 Urea nitrogen [Mass/Vol] 21 mg/dL 7-18 [facility] Work Phone: Thin prep Papanicolaou smear with manual screeningon 04-12-2022 Thin prep Papanicolaou smear with manual screening 57 U/L 15-37 [facility] Work Phone: Thin prep Papanicolaou smear with manual screening 6 5-15 [facility] Work Phone: Thin prep Papanicolaou smear with manual screening 8.5 mg/L NO RANGE EST. [facility] Work Phone: Urine creatinine measurement (mass/volume)on 04-12-2022 Creatinine (U) [Mass/Vol] 153.00 mg/dL NO RANGE EST. [facility] Work Phone: Whole blood hemoglobin A1c/t otal hemoglobin ratio (mass fraction)on 04-12-2022 HbA1c (Bld) [Mass fraction] 6.1 % 3.8-5.6 [facility] Work Phone: Comment on above: Normal < 5.7 % Predi abetic 5.7 - 6.4 % Diabetic >or= 6.5 % Please note range changes. Vital Signs Date Time Vital Sign Value Performing Clinician Eugenia larios 10-18-2024 10:34-0500 Diastolic Blood Pressure Non-Invasive 63 mm[Hg] DR AYAD CHU MD [facility] 10-18-2024 10:34-0500 Heart rate 56 /min DR AYAD CHU MD [facility] 10-18-2024 10:34-0500 Respiratory rate 17 /min DR AYAD CHU MD [facility] 10-18-2024 10:34-0500 Systolic Blood Pressure Non-Invasive 113 mm[Hg] DR AYAD CHU MD [facility] 10-18-2024 10:29-0500 Diastolic Blood Pressure Non-Invasive 59 mm[Hg] DR AYAD CHU MD [facility] 10-18-2024 10:29-0500 Heart rate 54 /min DR AYAD CHU MD [facility] 10-18-2024 10:29-0500 Respiratory rate 15 /min DR AYAD CHU MD [facility] 10-18-2024 10:29-0500 Systolic Blood Pressure Non-Invasive 108 mm[Hg] DR AYAD CHU MD [facility] 10-18-2024 10:24-0500 Diastolic Blood Pressure Non-Invasive 65 mm[Hg] DR AYAD CHU MD [facility] 10-18-2024 10:24-0500 Heart rate 50 /min DR AYAD CHU MD [facility] 10-18-2024 10:24-0500 Respiratory rate 13 /min DR AYAD CHU MD [facility] 10-18-2024 10:24-0500 Systolic Blood Pressure Non-Invasive 99 mm[Hg] DR AYAD CHU MD [facility] 10-18-2024 10:13-0500 Body temperature 97.52 [degF] DR AYAD CHU MD [facility] 10-18-2024 10:05-0500 Respiratory Rate - Anes 11 br/min DR AYAD CHU MD [facility] 10-18-2024 09:59-0500 Body height 175.[address] AYAD CHU MD [facility] 10-18-2024 09:59-0500 Body temperature 96.98 [degF] DR AYAD CHU MD [facility] 10-18-2024 09:59-0500 Body weight 109.[address] AYAD CHU MD [facility] 10-18-2024 09:59-0500 Heart rate 58 /min DR AYAD CHU MD [facility] Encounters Encounter Date Encounter Type Care Provider Facility Start: 04-25-2025 End: 04-25-[address] Amber Munoz MD Work Phone: [facility] Work Phone: Start: 04-25-2025 End: 04-25-[address] Ayad Chu MD -Ultrasound [facility] Work Phone: Start: 04-25-2025 End: 04-25-2025 ambulatory [facility] Facility:[facility] Start: 04-18-2025 End: 04-18-[address] Amber Munoz MD Work Phone: [facility] Work Phone: Start: 04-18-2025 End: 04-18-[address] Ayad Chu MD -Laboratory [place] Work Phone: Start: 04-18-2025 End: 04-18-[facility] Start: 04-13-2025 End: 04-13-[address] Amber Munoz MD Work Phone: [facility] Work Phone: Start: 04-13-2025 End: 04-13-[address] Amber Munoz MD -[facility] Start: 04-13-2025 End: 04-13-2025 ambulatory Amber Munoz Facility:[facility] Start: 10-18-2024 End: 10-18-2024 ambulatory AMBER MUNOZ MD Facility:[facility] Start: 10-18-2024 End: 10-18-[address] AYAD CHU MD [facility] Start: 10-05-2024 End: 10-05-2024 ambulatory Ayad Chu Facility:[facility] Start: 08-26-2024 End: 08-26-2024 ambulatory Ayad Chu Facility:[facility] Start: 03-04-2024 End: 03-04-2024 ambulatory [facility] Work Phone: Start: 03-04-2024 End: 03-04-2024 Patient encounter procedure [facility]-MRI - [facility] Work Phone: Start: 01-07-2024 End: 01-07-2024 [facility] Start: 10-15-2023 End: 10-15-2023 ambulatory [facility] Work Phone: Start: 10-15-2023 End: 10-15-2023 Patient encounter [facility] Start: 09-01-2023 End: 09-01-2023 ambulatory [facility] Work Phone: Start: 09-01-2023 End: 09-01-2023 Patient encounter [facility] Start: 08-07-2023 End: 08-07-2023 Patient encounter procedure [facility]-Outpatient Breast Imaging Work Phone: Start: 07-14-2023 End: 07-14-2023 Patient encounter procedure [facility] Start: 04-09-2023 End: 04-09-2023 ambulatory [facility] Work Phone: Start: 04-09-2023 End: 04-09-2023 Patient encounter procedure [facility] Start: 01-28-2023 End: 01-28-2023 ambulatory [facility] Work Phone: Start: 01-28-2023 End: 01-28-2023 Patient encounter procedure [facility]-Outpatient Breast Imaging Start: 10-11-2022 End: 10-11-2022 ambulatory [facility] Work Phone: Start: 10-11-2022 End: 10-11-2022 Patient encounter procedure [facility] Start: 04-12-2022 End: 04-12-2022 Patient encounter procedure [facility] Procedures Date Procedure Procedure Detail Performing Clinician Start: 04-25-[address] Amber montgomery MD Work Phone: Start: 04-18-2025 Bfuyk-[id number] measurement Dr. Amber Munoz MD Work Phone: Comment on above: [facility] Electrochemiluminescen ce Immunoassay(ECLIA)Values obtained with different assay methods or kits cannotbe used interchangeably. Results cannot be interpreted asabsolute evidence of the presence or absence of malignantdisease.This test is not interpretable in females.Performed at: [address] [id number] Director: Ayad Luis PhD, Phone: [phone] Start: 03-04-2024 MRI of abdomen with contrast Start: 03-03-2024 X-ray of eye for foreign body Start: 08-07-2023 Mammography Start: 08-07-2023 Ultrasonography of breast Start: 01-28-2023 Bilateral mammography Start: 01-28-2023 End: 01-28-2023 Ultrasonography of breast Biceps brachii muscl e and/or tendon structure (body structure) DR AYAD CHU MD Comment on above: bilateral Tonsillectomy planned DR DARRELL CHU MD Plan of Treatment Date Care Activity Detail Author [id number]. tumor marker [Units/volume] in Serum or Plasma [facility] Immunizations Immunization Date Immunization Notes Care Provider Fa cility 10-19-2016 influenza, injectabl e, quadrivalent, preservative free [facility] 10-19-2016 influenza, seasonal, injectable [facility] Payers Date Payer Category Payer Private Health Insurance [id number] 2024 Self-pay [id number] 2020 Medicare [id number] 2016 Unknown [id number] 1950 Unknown [id number] Private Health Insurance SELF PAY INSURAN [id number] Unknown [id number] Unknown [id number] Unknown [id number] Unknown [id number] Unknown [id number] Social History Date Type Detail Facility Start: 09-30-2019 End: 09-30-2019 Tobacco smoking status NHIS Unknown if ever smoked [facility] Start: 07-11-2021 Rare [facility] Start: 09-30-2019 Non-smoker [facility] Start: 1950 Sex Assigned At Male [facility] Start: 09-30-2019 End: 10-18-2024 Tobacco smoking status Never smoked tobacco (finding) [facility] Functional Status Date Assessment Result Facility 10-18-2024 Functional Status Maintained [facility] Radiology Diagnostic study note 04-25-2025 Note Date & Type Note Facility 04-25-2025 Radiology Diagnostic study note [facility] Imaging Services [address] [place], [place] [address] Abdomen Limited MR#: [id number] Acct: [id number] Name: ANGELIC ROUSE Rep #: [id number] : 1950 M 75 From: Miguelangel Huertas MD PCP: Dr. Amber Munoz MD Status: REG CLI Study:Abdomen Limited Date of Exam: 08/11 Exam# [id number] Ordering Dr: Suzanne Chu MD PROCEDURE: ABDOMEN LIMITED 04/25/2025 REASON FOR EXAM: CIRRHOSIS COMPARISON: Prior sonogram dated October 05, 2024. FINDINGS: Liver: Diffusely echogenic suggesting fatty infiltration. The liver measures 17.1 cm. Decreased hepatic flow suggestive of possible portal hypertension. Gallbladder: Solitary gallstone measuring 1.6 cm 1.2 cm x 0.6 cm. No evidence of pericholecystic fluid. Negative Zhou's sign. Mild thickening of the gallbladder wall measuring 4.2 mm. Common bile duct: Normal measuring 3.6 mm. . Pancreas: Normal Other: Stable 3.1 cm 3.2 cm 2.8 cm cyst in the inferior pole of the right kidney. US/Abdomen Limited IMPRESSION: Borderline hepatomegaly with diffuse fatty infiltration of the liver. Solitary gallstone in the neck of the gallbladder. Stable right renal cyst. Reading Location: [place] [address] CC: Dr. Amber Munoz MD; Dr. Ayad Chu MD ~ Weatherization And Housing Inspector: Signed [facility] Hospital Discharge instructions 10-18-2024 Note Date & Type Note Facility 10-18-2024 Hospital Discharge instructions Patient Education 10/18/2024 10:22:17 9 - AO Minor Esophagogastroduodenoscopy (01/28)(CUSTOM) Esophagogastroduodenoscopy This is an endoscopic procedure (a procedure that uses a device like a flexible telescope) that allows your caregiver to view the upper stomach and small bowel. This test allows your caregiver to look at the esophagus. The esophagus carries food from your mouth to your stomach. They can also look at your duodenum. This is the first part of the small intestine that attaches to the stomach. This test is used to detect problems in the bowel such as ulcers and inflammation. MEANING OF TEST Your caregiver will go over the test results with you and discuss the importance and meaning of your results, as well as treatment options and the need for additional tests if necessary. OBTAINING THE TEST RESULTS Your caregiver s office will call you with the results of the test. POST SEDATION INSTRUCTIONS Rest at home today. Since your coordination may be impaired, be cautious on stairways, do not drive any vehicle or operate any heavy machinery, or use any sharp instruments for the remainder of the day. Do not drink any alcoholic beverages or make any major decisions for 24 hours. POST PROCEDURE INSTRUCTIONS Progress slowly with full liquids then resume previous diet and medications. Belching or passing of gas is to be expected. Notify the physician if you have severe chest pain, fever, or if difficulty when swallowing persists. 01/25/14 Custom 10/18/2024 10:21:11 Monitored Anesthesia Care, Care After Monitored Anesthesia Care, Care After These instructions provide you with information about caring for yourself after your procedure. Your health care provider may also give you more specific instructions. Your treatment has been planned according to current medical practices, but problems sometimes occur. Call your health care provider if you have any problems or questions after your procedure. What can I expect after the procedure? After your procedure, you may: Feel sleepy for several hours. Feel clumsy and have poor balance for several hours. Feel forgetful about what happened after the procedure. Have poor judgment for several hours. Feel nauseous or vomit. Have a sore throat if you had a breathing tube during the procedure. Follow these instructions at home: For at least 24 hours after the procedure: Have a responsible adult stay with you. It is important to have someone help care for you until you are awake and alert. Rest as needed. Do not: ?Participate in activities in which you could fall or become injured. ?Drive. ?Use heavy machinery. ?Drink alcohol. ?Take sleeping pills or medicines that cause drowsiness. ?Make important decisions or sign legal documents. ?Take care of children on your own. Eating and drinking Follow the diet that is recommended by your health care provider. If you vomit, drink water, juice, or soup when you can drink without vomiting. Make sure you have little or no nausea before eating solid foods. General instructions Take ifif-cmp-xthixsl and prescription medicines only as told by your health care provider. If you have sleep apnea, surgery and certain medicines can increase your risk for breathing problems. Follow instructions from your health care provider about wearing your sleep device: ?Anytime you are sleeping, including during daytime naps. ?While taking prescription pain medicines, sleeping medicines, or medicines that make you drowsy. If you smoke, do not smoke without supervision. Keep all follow-up visits as told by your health care provider. This is important. Contact a health care provider if: You keep feeling nauseous or you keep vomiting. You feel light-headed. You develop a rash. You have a fever. Get help right away if: You have trouble breathing. Summary For several hours after your procedure, you may feel sleepy and have poor judgment. Have a responsible adult stay with you for at least 24 hours or until you are awake and alert. This information is not intended to replace advice given to you by your health care provider. Make sure you discuss any questions you have with your health care provider. Document Released: 02/23/2017 Document Revised: 02/01/2019 Document Reviewed: 02/23/2017 [employer] Patient Education 2020 [employer] Follow Up Care 09/29/2024 13:37:14 With:AYAD CHU MD Address: Nicole ROTHMAN [address] [phone] When: Unknown [facility] Clinical Note 10-18-2024 Note Date & Type Note Facility 10-18-2024 Note Discharge Instructions Thank you for allowing [facility] to assist you with your healthcare needs. The following is important discharge information regarding your hospital visit. Your Care Team AMBER MUNOZ MD, Dr. What to do next Follow Up Appointments Follow Up with AYAD CHU MD Where:[address] [place] [phone] Allergies NSAIDs(Severe) anaphalxis codeine Medications Please ask your primary doctor or pharmacist before taking any other medication not listed, including over the counter drugs, herbal medications, vitamins and or supplements as they may interact with your home medications. What How Much When Instructions Last Dose Unchanged ascorbic acid (Vitamin C) Once a day Unchanged bisoprolol (bisoprolol 10 mg oral tablet) 1 tab(s) by mouth Once a day Unchanged chondroitin/ glucosamine/ methylsulfonylmethane (Osteo Bi-Flex Advanced oral tablet) 1 tab(s) by mouth Every day Unchanged clopidogrel by mouth Unchanged hydrochlorothiazide-spironolactone (hydrochlorothiazide-spironolactone 25 mg-25 mg oral tablet) 1 tab(s) by mouth Every day Unchanged levothyroxine Unknown Strength (NEEDS CLARIFIED) by mouth Once a day Unchanged levothyroxine (levothyroxine 137 mcg (0.137 mg) oral tablet) 1 tab(s) by mouth Once a day Unchanged losartan (losartan 50 mg oral tablet) 1 tab(s) by mouth Every day Unchanged metFORMIN (MetFORMIN (Eqv-Fortamet) 500 mg oral tablet, EXTENDED RELEASE) 1 tab(s) by mouth Once a day Okay to substitute for generic Glucophage XR Unchanged metFORMIN (MetFORMIN (Eqv-Fortamet) 500 mg oral tablet, EXTENDED RELEASE) 1 tab(s) by mouth Once a day Okay to substitute for generic Glucophage XR Unchanged multivitamin (Multi Vitamin+ oral liquid) Unchanged omega-3 polyunsaturated fatty acids (Fish Oil 1000 mg oral capsule) 1 cap by mouth Once a day Unchanged pravastatin (pravastatin 40 mg oral tablet) 1 tab(s) by mouth Every day Unchanged selenium (selenium 200 mcg oral capsule) 1 cap by mouth Once a day with food Unchanged vitamin E by mouth Unchanged zinc acetate (zinc (as acetate) 50 mg oral capsule) 1 cap by mouth Three (3) times a day Please take this list to your next doctor s visit. Bring all medications you take, including over the counter medications, herbals and other supplements with you to your doctor s visit. Patients and families are reminded to discard old lists and to update any records with all medication providers or retail pharmacies. Education Materials Esophagogastroduodenoscopy This is an endoscopic procedure (a procedure that uses a device like a flexible telescope) that allows your caregiver to view the upper stomach and small bowel. This test allows your caregiver to look at the esophagus. The esophagus carries food from your mouth to your stomach. They can also look at your duodenum. This is the first part of the small intestine that attaches to the stomach. This test is used to detect problems in the bowel such as ulcers and inflammation. MEANING OF TEST Your caregiver will go over the test results with you and discuss the importance and meaning of your results, as well as treatment options and the need for additional tests if necessary. OBTAINING THE TEST RESULTS Your caregiver s office will call you with the results of the test. POST SEDATION INSTRUCTIONS Rest at home today. Since your coordination may be impaired, be cautious on stairways, do not drive any vehicle or operate any heavy machinery, or use any sharp instruments for the remainder of the day. Do not drink any alcoholic beverages or make any major decisions for 24 hours. POST PROCEDURE INSTRUCTIONS Progress slowly with full liquids then resume previous diet and medications. Belching or passing of gas is to be expected. Notify the physician if you have severe chest pain, fever, or if difficulty when swallowing persists. 01/25/14 Custom Monitored Anesthesia Care, Care After These instructions provide you with information about caring for yourself after your procedure. Your health care provider may also give you more specific instructions. Your treatment has been planned according to current medical practices, but problems sometimes occur. Call your health care provider if you have any problems or questions after your procedure. What can I expect after the procedure? After your procedure, you may: Feel sleepy for several hours. Feel clumsy and have poor balance for several hours. Feel forgetful about what happened after the procedure. Have poor judgment for several hours. Feel nauseous or vomit. Have a sore throat if you had a breathing tube during the procedure. Follow these instructions at home: For at least 24 hours after the procedure: Have a responsible adult stay with you. It is important to have someone help care for you until you are awake and alert. Rest as needed. Do not: ? Participate in activities in which you could fall or become injured. ? Drive. ? Use heavy machinery. ? Drink alcohol. ? Take sleeping pills or medicines that cause drowsiness. ? Make important decisions or sign legal documents. ? Take care of children on your own. Eating and drinking Follow the diet that is recommended by your health care provider. If you vomit, drink water, juice, or soup when you can drink without vomiting. Make sure you have little or no nausea before eating solid foods. General instructions Take vbwc-vov-xgsotzu and prescription medicines only as told by your health care provider. If you have sleep apnea, surgery and certain medicines can increase your risk for breathing problems. Follow instructions from your health care provider about wearing your sleep device: ? Anytime you are sleeping, including during daytime naps. ? While taking prescription pain medicines, sleeping medicines, or medicines that make you drowsy. If you smoke, do not smoke without supervision. Keep all follow-up visits as told by your health care provider. This is important. Contact a health care provider if: You keep feeling nauseous or you keep vomiting. You feel light-headed. You develop a rash. You have a fever. Get help right away if: You have trouble breathing. Summary For several hours after your procedure, you may feel sleepy and have poor judgment. Have a responsible adult stay with you for at least 24 hours or until you are awake and alert. This information is not intended to replace advice given to you by your health care provider. Make sure you discuss any questions you have with your health care provider. Document Released: 02/23/2017 Document Revised: 02/01/2019 Document Reviewed: 02/23/2017 [employer] Patient Education 2020 [employer] [place]. Additional Information VACCINATE! IT SAVES LIVES! Members of the community who have not yet received the COVID-19 vaccine and would like to receive it can visit one of [facility] vaccine clinics. There are many vaccine clinic locations within the [facility]. For locations and available times, please visit https://gettheshot.coronavirus.[place].gov/. It is important to note that some COVID mobile vaccine clinics are held outdoors and may be canceled in rainy or stormy conditions. To learn more about pediatric vaccinations (ages 5-11), we invite you to visit the [facility] webpage. https://www.[facility].org/pages/2019-N pdxi-Wakxwiulzrt-Pzewvgujwm-Asked-Questions .html To learn more about the COVID-19 vaccine, we invite you to visit the CDC website for a list of frequently asked questions.https://www.cdc.gov/coronavirus/2 019-ncov/vaccines/faq.html [facility] Patient Portal Access Instructions: Stay connected with your healthcare team and access your personal medical information anytime with the [facility] Patient Portal. Please follow the directions below to create your [employer] account: 1.Access the email account you provided upon registration to the hospital/physician office.2.Look for an invitation email from [facility].3.Open the email and access the invitation link: Accept Invitation to [facility].4.Fill in the required rivers to create your account. To access your account, visit [employer]. Click the blue button labeled Access Patient Portal and then log in with the username and password that you created in the steps above. You will be able to view your test results, lab results, a summary of your visits, upcoming appointments and more. There is also a convenient messaging option where you can send secure messages to your provider. In addition, you will have the ability to download any documents or summaries to your computer and/or send the information securely to a physician. Remember that your healthcare information is confidential, so carefully consider who you will allow to register on the [facility] Patient Portal for access to your information. You can also access the [facility] Patient Portal on the [facility] ansley. Simply click on Patient Portal and then log into your account. If you would like to receive a full copy of your medical records, please contact the [facility] Medical Records Department by calling [phone], Friday through Friday between 8 a.m. and 4:30 p.m. HOW TO SAFELY DISPOSE OF PRESCRIPTION MEDICATIONS Please use one of the following methods to safely dispose of your unused medications. 1.Use a drug disposal kit: the drug disposal pouch allows you to safely discard your old and unused drugs. Ask your nurse to give you one when you are discharged.2.Visit a local take-back location: Many local pharmacies and police departments have programs that collect old and unwanted prescription drugs. Call your local pharmacy or go to http://[employer]/8D0Bz8o to find one close to you.3.Make use of household items: Use cat litter or old coffee grounds to dispose medications if other options are not available. Mix your drugs with these household products, seal them in an airtight container and throw it into the garbage. Call [facility]: [phone] to be sure your drugs can be disposed of in this way. Some medicines may require a different approach.4.Never flush your medications down the toilet. IF YOU HAVE BEEN PRESCRIBED AN OPIOID FOR PAIN If you have been prescribed an opioid (such as hydrocodone, oxycodone or morphine), it is critical to understand the possible side effects and risks of opioid pain medications. Even when taken as directed, opioids can have several side effects including: Tolerance, meaning you might need to take more of a medication for the same pain relief. Nausea, vomiting and/or constipation. Sleepiness, dizziness, dry mouth, confusion, depression or itching. Physical dependence, meaning you have withdrawal symptoms when a medication is stopped, can develop within a few days. KNOW YOUR RESPONSIBILITIES It is important to know exactly how much and how often to take the opioid pain medications you are prescribed. Never take opioids in higher amounts or more often than prescribed. Do not combine opioids with alcohol or other drugs that cause drowsiness, such as benzodiazepines, also known as benzos, including diazepam and alprazolam, muscle relaxants or sleep aids. Never sell or share prescription opioids. This is illegal. Store opioids in a secure place and out of reach of others (including children, family, friends and visitors). The last page of this document has been signed and retained as a CHART COPY. Signatures Patient Education Materials 9 - AO Minor Esophagogastroduodenoscopy (01/28)(CUSTOM) Monitored Anesthesia Care, Care After Medication Leaflets My discharge plan and instructions have been reviewed and explained to me and I,ANGELIC ROUSE understand my current condition and have read and understand these discharge instructions. I have received a written copy of the plan/instructions. If I have questions, I am aware that I should contact my doctor. 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 The endoscope was passed direct visualization down the esophagus the proximal to mid esophagus. Normal Z-line was 41 cm from the incisors no evidence of esophageal varices. Was easily insufflated there was hyperemia throughout the gastric mucosa. Duodenum was unremarkable. Reflexion performed in the stomach revealed no evidence of gastric varices. 12 biopsies were taken of the gastric mucosa for pathology to rule out portal hypertensive gastropathy. Thumb was decompressed the scope was withdrawn the mucosa of the esophagus was unremarkable. Patient tolerated procedure well. Post-Procedure Exam EGD with biopsy Findings Cobblestone of the gastric mucosa Complications None apparent Total Time Approximately 15 minutes Assessment/Plan Orders: Bedrest, 10/18/24 10:11:00 EST, Strict, continuous, Constant order, Lying on side until alert or as ordered Bedrest, 10/18/24 10:11:00 EST, Strict, continuous, Constant order, Lying on side until alert or as ordered Call Parameters, 10/18/24 10:11:00 EST, Notify for vomiting, severe pain, signs of bleeding, severe abdominal pain, distention or rigidity, Constant order Diet Order, 10/18/24 10:11:00 EST, Start Meal: Next meal, Clear Liquid Diet, Post exam or after gag reflex returns if EGD, Constant Order, : N/A, : N/A Discharge Activity, NO activity restrictions, 10/18/24 10:11:00 EST Discharge Diet, Follow the post-operative/post-procedure diet instructions provided by your physician's office., 10/18/24 10:11:00 EST Discharge Wound Care, Follow the post-operative/post-procedure wound care instructions provided by your physician's office., 10/18/24 10:11:00 EST Pathology Tissue Request, 10/18/24 10:08:00 EST, Collected, Routine, Nurse Collect, AP Specimen, GASTRIC BIOPSY, SEE CHART, ESOPHAGOGASTRODUODENOSCOPY WITH BIOPSY, R/O PORTAL HYPERTENSIVE GASTROPATHY, CIRRHOSIS, [id number] Post Procedure Assessment, 10/18/24 10:11:00 EST, Stop Date 10/18/24 10:11:00 EST, [facility] in [facility] until Tana Score of 12 or Preprocedure Vital Signs, 10/18/24 10:11:00 EST, q15min, 1 hour(s), 10/18/24 11:00:00 EST Vital Signs, 10/18/24 10:11:00 EST, q30min, 1 hour(s), 10/18/24 11:00:00 EST Vital Signs PRN, 10/18/24 10:11:00 EST, PRN order Follow Up/Recommendation Repeat upper endoscopy in 2 years follow-up the biopsy of the stomach. 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 Family's history: negative. Health Status Allergies: Allergic Reactions (Selected) Severe NSAIDs- Anaphalxis., Allergies (1) ActiveSeverityReaction NSAIDsSevereanaphalxis Current medications: (Selected) Documented Medications Documented Fish Oil 1000 mg oral capsule: 1,000 mg, 1 cap(s), Oral, qDay, 90 cap(s), 0 Refill(s) MetFORMIN (Eqv-Fortamet) 500 mg oral tablet, EXTENDED RELEASE: 500 mg, 1 tab(s), Oral, qDay, Okay to substitute for generic Glucophage XR, 100 tab(s), 0 Refill(s) MetFORMIN (Eqv-Fortamet) 500 mg oral tablet, EXTENDED RELEASE: 500 mg, 1 tab(s), Oral, qDay, Okay to substitute for generic Glucophage XR, 30 tab(s), 0 Refill(s) Multi Vitamin+ oral liquid: 0 Refill(s) Osteo Bi-Flex Advanced oral tablet: 1 tab(s), Oral, Daily, 0 Refill(s) Vitamin C: qDay, 0 Refill(s) bisoprolol 10 mg oral tablet: 10 mg, 1 tab(s), Oral, qDay, 30 tab(s), 0 Refill(s) clopidogrel: Oral, 0 Refill(s) hydrochlorothiazide-spironolactone 25 mg-25 mg oral tablet: 1 tab(s), Oral, Daily, 30 tab(s), 0 Refill(s) levothyroxine 137 mcg (0.137 mg) oral tablet: 137 mcg, 1 tab(s), Oral, qDay, 0 Refill(s) levothyroxine: Unknown Strength (NEEDS CLARIFIED), Oral, qDay, 0 Refill(s) losartan 50 mg oral tablet: 50 mg, 1 tab(s), Oral, Daily, 100 tab(s), 0 Refill(s) pravastatin 40 mg oral tablet: 40 mg, 1 tab(s), Oral, Daily, 100 tab(s), 0 Refill(s) selenium 200 mcg oral capsule: 200 mcg, 1 cap(s), Oral, qDay, with food, 60 cap(s), 0 Refill(s) vitamin E: Oral, 0 Refill(s) zinc (as acetate) 50 mg oral capsule: 50 mg, 1 cap(s), Oral, TID, 250 cap(s), 0 Refill(s), No qualifying data available Problem list: Active Problems (4) Borderline diabetes Fatty liver Hypertension Hyperthyroidism Histories Past Medical History: No active or resolved past medical history items have been selected or recorded. Family History: No family history items have been selected or recorded. Procedure history: Biceps brachii muscle and/or tendon structure ([id number]). Comments: 10/18/2024 9:41 EST - Nallely Bernardo RN bilateral Tonsillectomy planned ([id number]). Social History: Social & Psychosocial Habits Alcohol 10/18/2024 Use: Current Frequency: 1-2 times per month Substance Abuse 10/18/2024 Use: Never Tobacco 10/18/2024 Tobacco Use: Never (less than 100 in l Physical Examination No qualifying data available General: Alert and oriented. Airway: Normal temporomandibular joint mobility. Mallampati classification: II (soft palate, fauces, uvula visible). Dentition Evaluation: Denies loose/chipped teeth. Respiratory: Lungs are clear to auscultation, Respirations are non-labored. Cardiovascular: Normal rate, Regular rhythm. Neurologic: Alert, Oriented. Review / Management Results review: No qualifying data available , Lab results 10/18/2024 9:25 EST IV Present Present Allergies Yes Consent Form Signed Yes Patient Dressed In Hospital gown History & Physical Update On Chart Yes History & Physical On Chart Yes Belongings At Bedside Glasses, Pants, Shirt, Shoes Personal Home Medications Received No home medications were brought in NPO Status Maintained Allergy Band on and Verified Yes Patient ID Band on and Verified Yes Implants Verified Yes Pacemaker/AICD Verified Yes Site Verified by Patient/Family Yes Anesthesia Consent Signed Yes Last Fluid Intake 10/17/2024 22:30 Last Food Intake 10/17/2024 22:30 . Assessment and Plan Citizen Of [place] Society of Anesthesiologists (ASA) physical status classification: Class III. Anesthetic Preoperative Plan Anesthetic technique: MAC. Risks discussed: nausea, vomiting, sore throat, dental injury, hypotension, serious complications. Informed consent: signed by patient. Digitally Signed by MONSE WHITT on 10/18/2024 09:50 AM [facility] Evaluation + Plan note Note Date & Type Note Facility Evaluation + Plan note No data available for this section [facility] Evaluation note Note Date & Type Note Facility Evaluation note No assessment information availa [facility] Work Phone: Reason for referral (narrative) Note Date & Type Note Facility Reason for referral (narrative) No reason for referral information available [facility] Work Phone: Family History Relationship Condition Age at Onset Recorded Date/T deonte Unknown Family History?- Unknown November 112015 1:51am Family History?- Unknown September 302018 9:36am Relationship Condition Age at Onset Recorded Date/T deonte Unknown Family History?- Unknown November 112015 12:51am Family History?- Unknown September 302018 8:36am Advance Directives Advance Directive Response Recorded Date/ Time Advance Directives Yes October 19, 2016 12:51am Living Will Yes September 30, 2 019 9:36am Power of Loaf Counter Yes September 30, 2019 9:36am Advance Directive Response Recorded Date/ Time Advance Directives Yes October 18, 2016 11:51pm Living Will Yes September 30, 2 019 8:36am Power of Loaf Counter Yes September 30, 2019 8:36am Advance Directive Response Recorded Date/ Time Advance Directives Yes October 19, 2016 12:51am Chief Complaint and Reason for Visit Chief Complaint LUMP OF RIGHT BREAST Chief Complaint LEFT BREASE LUMP Chief Complaint CIRRHOSIS Chief Complaint Admit Date CIRRHOSIS April 18, 2025 2:22p m Chief Complaint Admit Date CIRRHOSIS April 18, 2025 2:22p m CIRRHOSIS April 25, 2025 7:45a m Summary Purpose Additional Source Comments Goals (unrecognized section and content) Goals may be documented in a n alternate sectionGoals may be documented in an alternate sectionGoals may be documented in an alternate sectionGoals may be documented in an alternate sectionGoals may be documented in an alternate sectionGoals may be documented in an alternate sectionGoals may be documented in an alternate section No data available for this sectionGoals may be documented in an alternate sectionGoals may be documented in an alternate sectionGoals may be documented in an alternate section Care Teams (unrecognized sec tion and content) Team Status: Active Member Role Status Dates Dr. Amber Munoz MD Family Provider Active Dr. Amber Munoz MD Primary Care Provider Active Team Status: Inactive Member Role Status Dates Dr. Amber Munoz MD Primary Care Provide r, Attending Provider, Referring Provider Active Team Status: Inactive Member Role Status Dates Dr. Amber Munoz MD Primary Care Provider, Attending Oleksandr welch Active Team Status: Inactive Member Role Status Dates Dr. Amber Munoz MD Primary Care Provider, Attending P rebekah Active Amber SAVAGE MD Referring Provider Active Team Status: Inactive Member Role Status Dates Dr. Amber Munoz MD Primary Care Provider Active Dr. Ayad Chu MD Attending Provider, Referring Provider Active Team Status: Active Member Role Status Dates Dr. Amber Munoz MD Primary Care Provider Active Team Status: Inactive Member Role Status Dates Dr. Amber Munoz MD Primary Care Provider Active Start: April 13, 2025 End: April 13, 2025 Dr. Amber Munoz MD Attending Provider Active St art: April 13, 2025 End: April 13, 2025 Dr. Amber Munoz MD Referring Provider Active St art: April 13, 2025 End: April 13, 2025 Team Status: Inactive Member Role Status Dates Dr. Amber Munoz MD Primary Care Provider Active Start: April 18, 2025 End: April 18, 2025 Dr. Ayad Chu MD Attending Provider Active Start: April 18, 2025 End: April 18, 2025 Dr. Ayad Chu MD Referring Provider Active Start: April 18, 2025 End: April 18, 2025 Team Status: Inactive Member Role Status Dates Dr. Amber Munoz MD Primary Care Provider Active Start: April 25, 2025 End: April 25, 2025 Dr. Ayad Chu MD Attending Provider Active Start: April 25, 2025 End: April 25, 2025 Dr. Ayad Chu MD Referring Provider Active Start: April 25, 2025 End: April 25, 2025 Team Status: Active Member Role Status Dates Dr. Amber Munoz MD Primary Care Provider Active Start: April 18, 2025 Dr. Ayad Chu MD Attending Provider Active Start: April 18, 2025 Dr. Ayad Chu MD Referring Provider Active Start: April 18, 2025 (unrecognized sect ion and content) No Status Records FoundNo Status Records Found INFORMATION SOURCE (unrecogn ized section and content) DATE CREATED AUTHOR 10/20/2024 [facility] DATE CREATED AUTHOR AUTHOR'S FLAVIOIZ ATION 04/30/2025 [facility] FOR RECORDS PERTAINING TO PATIENTS WHO ARE OR HAVE BEEN ENROLLED IN A CHEMICAL DEPENDENCY/SUBSTANCEABUSE PROGRAM, SOME INFORMATION MAY BE OMITTED. This clinical summary was aggregated from multiple sources. Caution should be exercised in using it in the provision of clinical care. This summary normalizes information from multiple sources, and as a consequence, information in this document may materially change the coding, format and clinical context of patient data. In addition, data may be omitted in some cases. CLINICAL DECISIONS SHOULD BE BASED ON THE PRIMARY CLINICAL RECORDS. [facility] [employer] [facility]. provides no warranty or guarantee of the accuracy or completeness of information in this document.
== END | disposition home or self-care (01) ==
LOC: MRI 08:01
PROVIDERS: PCP Family Medicine; Referring Provider Internal Medicine Gastroenterology; Visit Provider Internal Medicine Gastroenterology
DX: K74.60 Unspecified cirrhosis of liver (principal)
CPT/HCPCS: 74183; A9575; A4216